=== PATIENT | female | born 1960 | race Caucasian/White ===

== ENCOUNTER 2018-06-28 11:14 | Inpatient (IN) ==
--- NOTE | 2018-06-28 21:03 | ED ---
HPI General Source: patient Mode of arrival: ambulatory Limitations: no limitations History of Present Illness HPI narrative: 57-year-old woman who does not seek regular medical care who presents with 3 day history of right lower chest pain and shortness of breath. She has been unwell for the past 4 weeks and has been seen twice at [facility] for abdominal pains and flank pains. First she was told she had pyelonephritis and finished a course of antibiotics and the second time she was told that she had diverticulitis and finished a course of Cipro and Flagyl. She still has some lingering abdominal discomfort however. Starting suddenly about 3 days ago she developed a constant stabbing right lower chest pain that does not radiate. It is not worse with urination but is worse with deep breath. She also feels short of breath both at rest and particularly with exertion. No fevers or chills. She does not have a cough and is not producing sputum. No hemoptysis. No unilateral leg pain or swelling. The patient denies IV drug use. No prior history of clots. No history of active malignancy or treatment for malignancy. She is not taking exogenous estrogen. Related Data Home Medications Medication Instructions Recorded Confirmed No Known Home Medications 06/28/18 06/28/18 Allergies Allergy/AdvReac Type Severity Reaction Status Date / Time No Known Allergies Allergy Unverified 06/28/18 11:27 Review of Systems ROS: all other systems reviewed are negative FOR[facility]LY [facility] Medical History Medical History Patient denies medical problems (Acute) Surgical History Surgical History No history of previous surgery (Acute) Social History Social History Substance History: No History of Abuse Second Hand Smoke Exposure: Yes Smoking Status: Heavy tobacco smoker Tobacco Type: Cigarettes How Often Do You Have a Drink Containing Alcohol: Never Exam Narrative Exam Narrative: GENERAL: Cachectic 57-year-old woman who appears older than stated age. No companions are present at bedside at time of exam. SKIN: Focused skin assessment warm/dry. 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 HEAD: Atraumatic. Normocephalic. EYES: Pupils equal and round. No scleral icterus. No injection or drainage. ENT: No nasal bleeding or discharge. Mucous membranes pink and moist. NECK: Trachea midline. No JVD. CARDIOVASCULAR: Regular rate and rhythm. No murmur appreciated. RESPIRATORY: No accessory muscle use but tachypnea present. Rales present in bilateral bases. Breath sounds equal bilaterally. GASTROINTESTINAL: Abdomen soft, very mild generalized tenderness to palpation, no rebound tenderness or guarding, nondistended. MUSCULOSKELETAL: No obvious deformities. No clubbing. No cyanosis. No edema. NEUROLOGICAL: Awake and alert. No obvious cranial nerve deficits. Motor grossly within normal limits. Normal speech. PSYCHIATRIC: Appropriate mood and affect; insight and judgment normal. Medical Decision Making MDM Narrative Medical decision making narrative: Ill-appearing 57-year-old woman with right- sided pleuritic chest pain and new oxygen requirement with tachypnea. Based on my exam I have a strong suspicion for IV drug use and I am somewhat concerned for endocarditis or vegetation on valve. This may be causing a pulmonary embolus. It appears that she has a right lower infiltrate on chest x-ray which may be community-acquired pneumonia or lung infarct secondary to pulmonary embolus or septic embolus to pulmonary artery. Will order d-dimer and if elevated CTA. Will cover empirically for community acquired pneumonia with ceftriaxone and azithromycin. Her presentation may be secondary to a occult malignancy given her chronically ill appearance. She is a likely admission. Provide with IV morphine 2 mg for pain. Addendum: CTA positive for bilateral pulmonary emboli. Patient started on heparin drip with bolus. Second dose of morphine IV ordered for pain. Medical Screen Exam Complete: Yes Emergency Medical Condition: Yes Medical Records Medical records reviewed: Yes I reviewed the patient's medical records. Lab Data Lab results reviewed: Yes I reviewed the patient's lab results. Lab results narrative: Elevated d-dimer, mildly elevated BNP that may be suggestive of right heart strain, negative troponin. Imaging Data Radiologist's impression: Bilateral pulmonary emboli observed on CT angios chest. Right lower lobe infiltrate suggestive of pneumonia seen on chest x- ray. The left costophrenic angle is not fully evaluated due to positioning of x -ray film. ECG Data Attestation: I personally reviewed and interpreted this ECG as follows: Interpretation: Sinus rhythm, rate 87 bpm, PA interval 174 ms, QRS interval 81 ms, QTc interval 14 ms, there is mild ST elevation in leads V3 and V4 with rounded ST segments and T-wave is suggestive of either acute ischemia or heart strain, disagree with the machine read of acute STEMI I do not believe this is a STEMI. Discharge Plan Discharge Disposition Patient Disposition: 30 Still Patient Discharge Condition Condition: Serious Discharge Details Diagnosis: Bilateral pulmonary embolism Physicians Team ED Provider: Devan Broussard Primary Care Provider: Primary Care Stacia Parks Attending Provider: Ye Machado Status ED Status: Admitted Patient
[2018-06-28] MEDS ORDERED: Morphine Sulfate Inj 2 MG/ML Vial IV.PUSH ONE (21:20)
--- NOTE | 2018-06-28 22:20 | US ---
EXAM DATE: 06/28/2018 10:11 PM EDT AGE/SEX: 57 years / Female INDICATIONS: Pulmonary embolism. CLINICAL DATA: This is the patient's initial encounter. Patient reports that signs and symptoms have been present for 4 - 6 days and indicates a pain score of 0/10. MEDICAL/SURGICAL HISTORY: None. None. COMPARISON: No prior exams available for comparison. TECHNIQUE: Venous ultrasound of both lower extremities was performed from the inguinal ligament to t he proximal calf. Real-time, color Doppler and spectral tracing, compression and augmentation techni ques were used. FINDINGS: Right Leg: There is normal flow within the right common femoral, superficial femoral, popliteal and peroneal veins. There is nonocclusive thrombus within the right posterior tibial vein. Left Leg: There is nonocclusive thrombus within the left proximal superficial femoral vein. Normal c olor flow is noted within the left mid and distal superficial femoral, popliteal, peroneal and marquetry worker ior tibial veins. Other: None. CONCLUSION: 1. Occlusive thrombus within the left proximal superficial femoral vein and right posterior tibial v ein. Electronically signed by: Javon Alaniz MD 06/28/2018 10:19 PM EDT
[2018-06-28 22:22] LABS: Hematocrit 36.8 % (35.0-46.0); Hemoglobin 12.5 gm/dL (11.6-15.3); Mean Corpuscular Hemoglobin 28.8 pg (27.0-34.0); Mean Corpuscular Volume 84.7 fL (80.0-100.0); Mean Platelet Volume 8.2 fL (7.0-11.0); Platelet Count 184 th/mm3 (150-450); Red Blood Count 4.34 mil/mm3 (4.00-5.30); White Blood Count 8.5 th/mm3 (4.0-11.0)
[2018-06-28 22:35] LABS: Activated Partial Thrombo Time 28.7 sec (24.3-30.1); INR 1.1 Ratio; Prothrombin Time 11.6 sec (9.8-11.6)
[2018-06-28] MEDS ORDERED: Heparin Drip 25,000 UNIT/250 ML BAG IV.CONT PRN ×2 (23:02→23:44)
--- NOTE | 2018-06-28 23:24 | P.HPIM ---
History of Present Illness [facility] Primary Care Physician: No Primary Care Physician Chief Complaint: Chest pain and shortness of breath History of Present Illness: Ms. Fontenot is a 57 year-old with a history of tobacco abuse since the age of 15 who presented to the emergency room in [place] complaining of chest pain and shortness of breath. She was found to have bilateral pulmonary embolism, emphysematous changes and apical lung robledo, and bilateral pleural effusions on pulmonary CTA and was transferred to the main hospital for hospitalist admission for medical management. The patient is seen in the surgical intensive care unit. She is complaining of severe stabbing pain in her chest and her back that has been relieved somewhat by pain medications. The pain is worsened with deep breathing and positional changes. The patient complains of a 10 pound weight loss over the past few weeks. The patient was previously seen at [facility] in [place] and was treated for pyelonephritis on her first ER visit followed by being treated for colitis. She states she was having pain in her back and abdomen that did not get better despite treatment with antibiotics resulting in her presentation to the [place] emergency room on 06/28/2018. She denies any recent long periods of travel, denies illicit drug abuse, denies any history of blood clots or bleeding disorders, denies any history of cancer, and denies taking any estrogen. She reports leading a relatively sedentary lifestyle and smokes about a pack a day since the age of 15. She denies any family history of blood clots or bleeding disorders. Inpatient Certification: I certify that the inpatient services were ordered in accordance with Medicare regulations governing the order. This includes certification that hospital inpatient services are reasonable and necessary and in the case of services not specified as inpatient-only under 42 CFR 419.22(n), that they are appropriately provided as inpatient services in accordance to with the 2-midnight benchmark under 43 CFR 412.3(e) Estimated Total Length of Stay (Days): 3 Plans for Post Hospital Care: Home Review of Systems All other systems reviewed negative except as stated in HPI PMFSH - History History Provided By: Patient - Medical History Medical History: Medical History (Last Updated 06/29/18 @ 00:36 by ELLEN Tao) History of ectopic Tobacco abuse Onset Date: ~1974 - Surgical History Surgical History: Surgical History (Last Updated 09/08/18 @ 00:37 by ELLEN Tao) History of bilateral salpingectomy - Family History Family History: Family History (Last Updated 06/29/18 @ 00:37 by ELLEN Tao) Mother Hypertension - Tobacco History Second Hand Smoke Exposure: Yes Smoking Status: Heavy tobacco smoker Tobacco Type: Cigarettes Packs Per Day: 1 Years Smoked: 42 - Alcohol History How Often Do You Have a Drink Containing Alcohol: Never - Substance Use History Substance History: No History of Abuse Medications and Allergies Active Medications: Active Medications Hydrocodone Bitart/Acetaminophen (Vassar 5/325) 1 tab PO Q4H PRN PRN Reason: pain > 4 Al Hydroxide/Mg Hydroxide (Milk Of [place]) 30 ml PO Q12H PRN PRN Reason: Mild Constipation Albuterol (Duoneb Neb (Prn)) 1 ampul NEB Q2HR NEB PRN PRN Reason: SHORTNESS OF BREATH/WHEEZING Albuterol (Duoneb Neb (Pia)) 1 ampul NEB Q6HR NEB PIA Last Admin: 06/28/18 22:30 Dose: 1 ampul Heparin Sodium/Dextrose (Heparin/D5w 25,000 U/250 Ml) 25,000 unit in 250 mls @ 8 mls/hr IV.CONT TITRATE PRN; Protocol PRN Reason: Per Protocol Morphine Sulfate (Morphine Inj) 2 mg IV.PUSH Q4H PRN PRN Reason: BREAKTHROUGH PAIN Allergies Allergy/AdvReac Type Severity Reaction Status Date / Time No Known Allergies Allergy Unverified 06/28/18 11:27 Home Medications Medication Instructions Recorded Confirmed Type No Known Home Medications 06/28/18 06/28/18 History Exam Vital signs: Vital Signs 06/28/18 21:25 06/28/18 22:31 06/28/18 22:58 Pulse Rate 85 Respiratory Rate 24 20 Pulse Oximetry 94 L Intake & Output 06/28/18 06/28/18 06/29/18 06:59 18:59 06:59 Weight 45.1 kg Other: Weight On Admission 45.1 kg Narrative: GENERAL: This is a frail older female patient, in no apparent distress. SKIN: No rashes. Cool and dry. HEAD: Atraumatic. Normocephalic. EYES: No scleral icterus. No injection or drainage. ENT: Nose without bleeding, purulent drainage. NECK: Trachea midline. No JVD. CARDIOVASCULAR: Regular rate and rhythm without murmurs, gallops, or rubs. RESPIRATORY: No tachypnea noted; no accessory muscle use. Breath sounds with coarse rhonchi bilaterally in lower lung robledo. GASTROINTESTINAL: Abdomen soft, non-tender, nondistended. No guarding. MUSCULOSKELETAL: Extremities without clubbing, cyanosis, or edema. No calf tenderness. NEUROLOGICAL: Awake and alert. Motor and sensory grossly within normal limits. Normal speech. . Results - Labs CBC & Chem 7: 06/28/18 21:57 Labs: Short CBC 06/28/18 Range/Units 21:57 WBC 8.5 (4.0-11.0) th/mm3 Hgb 12.5 (11.6-15.3) gm/dL Hct 36.8 (35.0-46.0) % Plt Count 184 (150-450) th/mm3 - Imaging Impressions Venous Doppler Study 06/28/18 00:00 CONCLUSION: 1. Occlusive thrombus within the left proximal superficial femoral vein and right posterior tibial vein. Caprini VTE Risk Assessment Caprini VTE Risk Assessment: Moderate/High Risk (score >= 2) Caprini Risk Assessment Model: Point Value = 1 Point Value = 2 Point Value = 3 Point Value = 5 Age 41-60 Minor surgery BMI > 25 kg/m2 Swollen legs Varicose veins or History of unexplained or recurrent spontaneous Oral contraceptives or hormone replacement Sepsis (< 1 month) Serious lung disease, including pneumonia (< 1 month) Abnormal pulmonary function Acute myocardial infarction Congestive heart failure (< 1 month) History of inflammatory bowel disease Medical patient at bed rest Age 61-74 Arthroscopic surgery Major open surgery (> 45 min) Laparoscopic surgery (> 45 min) Malignancy Confined to bed (> 72 hours) Immobilizing plaster cast Central venous access Age >= 75 History of VTE Family history of VTE Factor V Leiden Prothrombin [id number] Lupus anticoagulant Anticardiolipin antibodies Elevated serum homocysteine Heparin-induced thrombocytopenia Other congenital or acquired thrombophilia Stroke (< 1 month) Elective arthroplasty Hip, pelvis, or leg fracture Acute spinal cord injury (< 1 month) Prophylaxis Regimen: Total Risk Factor Score Risk Level Prophylaxis Regimen 0-1 Low Early ambulation 2 Moderate Order ONE of the following: *Sequential Compression Device (SCD) *Heparin 5000 units SQ BID 3-4 Higher Order ONE of the following medications: *Heparin 5000 units SQ TID *Enoxaparin/Lovenox 40 mg SQ daily (WT < 150 kg, CrCl > 30 mL/min) *Enoxaparin/Lovenox 30 mg SQ daily (WT < 150 kg, CrCl > 10-29 mL/min) *Enoxaparin/Lovenox 30 mg SQ BID (WT < 150 kg, CrCl > 30 mL/min) AND/OR *Sequential Compression Device (SCD) 5 or more Highest Order ONE of the following medications: *Heparin 5000 units SQ TID (Preferred with Epidurals) *Enoxaparin/Lovenox 40 mg SQ daily (WT < 150 kg, CrCl > 30 mL/min) *Enoxaparin/Lovenox 30 mg SQ daily (WT < 150 kg, CrCl > 10-29 mL/min) *Enoxaparin/Lovenox 30 mg SQ BID (WT < 150 kg, CrCl > 30 mL/min) AND *Sequential Compression Device (SCD) Assessment and Plan - Plan Ms. Fontenot is a 57 year-old with a history of tobacco abuse since the age of 15 who presented to the emergency room in [place] complaining of chest pain and shortness of breath. She was found to have bilateral pulmonary embolism, emphysematous changes and apical lung robledo, and bilateral pleural effusions on pulmonary CTA and was transferred to the main hospital for hospitalist admission for medical management. Bilateral pulmonary emboli Bilateral lower extremity DVTs -Heparin drip -Analgesia: As needed [place]assar and IV morphine for breakthrough pain -Mildly elevated BNP of 309 with no other indicators of right ventricular strain on EKG or troponin I leak -Urgent echocardiogram in a.m. to evaluate for right ventricular strain -Consult hematology - appreciate assistance with coagulopathy Emphysematous changes in long-term smoker -Consult pulmonology -appreciate assistance with emphysematous changes, interstitial changes right lung base, and small bilateral pleural effusions in background of bilateral pulmonary embolism -Duonebulizers q6h and q2h PRN sob/wheezing -Supplemental oxygen via nasal cannula to maintain oxygen saturation greater than 92% Tobacco Abuse - encouraged cessation Discussed Condition With: Dr. Pond, patient, and RN .
[2018-06-28] MEDS ORDERED: Heparin 10,000 UNITS/10 ML Vial (for IV use) ONE (23:32)
[2018-06-28] MEDS ORDERED: Heparin 10,000 UNITS/10 ML Vial (for IV use) IV.PUSH SCH (23:45)
[2018-06-29] MEDS: Morphine Sulfate Inj 2 MG/ML Vial IV.PUSH PRN ×2 (03:42→08:19)
[2018-06-29 08:07] LABS: Baso % (Auto) 0.4 % (0.0-2.0); Eos # (Auto) 0.2 th/mm3 (0.0-0.4); Eos % (Auto) 2.2 % (0.0-4.0); Hematocrit 34.8 % (35.0-46.0); Hemoglobin 11.8 gm/dL (11.6-15.3); Lymph # (Auto) 0.9 th/mm3 (1.0-4.8); Lymph % (Auto) 10.9 % (9.0-44.0); Mean Corpuscular Hemoglobin 28.7 pg (27.0-34.0); Mean Corpuscular Volume 84.4 fL (80.0-100.0); Mean Platelet Volume 8.2 fL (7.0-11.0); Mono # (Auto) 0.5 th/mm3 (0.0-0.9); Mono % (Auto) 6.1 % (0.0-8.0); Neut # (Auto) 6.4 th/mm3 (1.8-7.7); Neut % (Auto) 80.4 % (16.0-70.0); Platelet Count 177 th/mm3 (150-450); Red Blood Count 4.12 mil/mm3 (4.00-5.30); White Blood Count 7.9 th/mm3 (4.0-11.0)
[2018-06-29 08:26] LABS: Alanine Aminotransferase 10 U/L (10-53); Albumin 2.7 g/dL (3.4-5.0); Anion Gap 10 meq/L (5-15); Aspartate Aminotransferase 16 U/L (15-37); Blood Urea Nitrogen 6 mg/dL (7-18); Calcium 8.3 mg/dL (8.5-10.1); Carbon Dioxide 25.3 meq/L (21.0-32.0); Chloride 102 meq/L (98-107); Glomerular Filtration Rate Greater Than 89 mL/min (>89); Glucose,Random 133 mg/dL (74-106); Potassium 3.2 meq/L (3.5-5.1); Sodium 137 meq/L (136-145)
[2018-06-29 08:29] LABS: Alkaline Phosphatase 59 U/L (45-117); Total Protein 7.6 g/dL (6.4-8.2)
--- NOTE | 2018-06-29 10:01 | P.PN ---
Subjective Interval history: Nursing denies any deterioration since last night. Patient herself says her pain is no better. Also says that she has had persistent back pain since being discharged from her last hospitalization for pyelonephritis and colitis. Patient denies any fevers. She denies having any history of blood clots or cancer or any family history of such. Patient states she is an active smoker and says that at home she lives a very sedentary lifestyle just sitting around or laying around for multiple hours during any given day. Physical Exam Vital signs: Vital Signs 06/28/18 20:00 06/28/18 21:25 06/28/18 22:31 Temperature 98.1 F Pulse Rate 82 85 Respiratory Rate 20 24 Blood Pressure 125/77 Pulse Oximetry 100 94 L 06/28/18 22:58 06/29/18 00:00 06/29/18 04:00 Temperature 98.3 F 98.2 F Pulse Rate 90 66 Respiratory Rate 20 24 24 Blood Pressure 114/68 108/59 L Pulse Oximetry 96 06/29/18 04:35 06/29/18 08:00 06/29/18 08:31 Temperature 97.9 F Pulse Rate 67 78 Respiratory Rate 20 26 H 26 H Blood Pressure 128/82 Pulse Oximetry 06/29/18 09:43 Temperature Pulse Rate Respiratory Rate 20 Blood Pressure Pulse Oximetry Intake & Output 06/28/18 06/29/18 06/29/18 18:59 06:59 18:59 Weight 45.1 kg Other: # Voids 1 Date of Last Bowel Movement 06/29/18 # Bowel Movements 1 Weight On Admission 45.1 kg Narrative: Heart sounds regular rate and rhythm, Clear lungs bilaterally, unlabored breathing No lower extremity edema, no sarah tenderness to palpation over bilateral calves Has diffuse lumbar TTP Results - Labs CBC & Chem 7: 06/29/18 07:45 06/29/18 07:45 Laboratory Results - last 24 hr 06/28/18 06/28/18 06/28/18 20:45 21:57 21:57 WBC 8.5 RBC 4.34 Hgb 12.5 Hct 36.8 MCV 84.7 MCH 28.8 MCHC 34.0 RDW 14.0 Plt Count 184 MPV 8.2 Neut % (Auto) Lymph % (Auto) [place] % (Auto) Eos % (Auto) Baso % (Auto) Neut # (Auto) Lymph # (Auto) [place] # (Auto) Eos # (Auto) Baso # (Auto) WBC Differential Differential Comment PT 11.6 INR 1.1 APTT 28.7 Sodium Potassium Chloride Carbon Dioxide Anion Gap BUN Creatinine Estimated GFR Random Glucose Calcium Total Bilirubin AST ALT Alkaline Phosphatase Total Protein Albumin Nasal Screen MRSA (PCR) Mrsa detected 06/29/18 06/29/18 06/29/18 07:45 07:45 07:45 WBC 7.9 RBC 4.12 Hgb 11.8 Hct 34.8 L MCV 84.4 MCH 28.7 MCHC 34.0 RDW 14.0 Plt Count 177 MPV 8.2 Neut % (Auto) 80.4 H Lymph % (Auto) 10.9 [place] % (Auto) 6.1 Eos % (Auto) 2.2 Baso % (Auto) 0.4 Neut # (Auto) 6.4 Lymph # (Auto) 0.9 L [place] # (Auto) 0.5 Eos # (Auto) 0.2 Baso # (Auto) 0.0 WBC Differential . Differential Comment Auto diff final PT INR APTT 32.6 H Sodium 137 Potassium 3.2 L Chloride 102 Carbon Dioxide 25.3 Anion Gap 10 BUN 6 L Creatinine 0.64 Estimated GFR Greater than 89 Random Glucose 133 H Calcium 8.3 L Total Bilirubin 0.3 AST 16 ALT 10 Alkaline Phosphatase 59 Total Protein 7.6 Albumin 2.7 L Nasal Screen MRSA (PCR) Microbiology 06/29/18 02:00 Stool Stool Occult Blood (ITALO) - Final Hemoccult negative - Imaging Impressions Venous Doppler Study 06/28/18 00:00 CONCLUSION: 1. Occlusive thrombus within the left proximal superficial femoral vein and right posterior tibial vein. Assessment and Plan - Plan Ms. Fontenot is a 57 year-old with a history of tobacco abuse since the age of 15 who presented to the emergency room in [place] complaining of chest pain and shortness of breath. She was found to have bilateral pulmonary embolism, emphysematous changes and apical lung robledo, and bilateral pleural effusions on pulmonary CTA and was transferred to the main hospital for hospitalist admission for medical management. Chest pain Bilateral pulmonary emboli -Heparin drip -Analgesia: As needed [facility] and IV morphine for breakthrough pain -Mildly elevated BNP of 309 with no other indicators of right ventricular strain on EKG or troponin I leak -Echocardiogram results indicate right heart moderately decreased systolic function, discussed results w/ cardiology, does not indicate criteria for submassive PE thrombolysis; discuss CT results with Dr. Yee, recommended repeat CTA either this evening or tomorrow morning and continue medical management as long as the patient is hemodynamically stable -awaiting hematology consult BL DVTs - heparin as above, awaiting hematology consult Emphysematous changes in long-term smoker -start ICS and albuterol as needed -Duonebs Back pain -Possible "Lytic lesion at T12" read per radiology, will see if hematology/ oncology can comment on this, will start nasal calcitonin (per pharmacy will not be available until Sunday), UA w/ reflex, start lidoderm patch -Micro from [place] grew out no pathologic specimens, Jun 03 G+ cocci, rods, - contamination w/ no further workup Tobacco Abuse - encouraged cessation
[2018-06-29] MEDS: Lidocaine 5% Patch T-DERMAL SCH (10:58)
[2018-06-29] MEDS ORDERED: Calcitonin Salmon Nasal 200 UNITS/Actuation - (3.7 ML) NASAL SCH (12:00)
--- NOTE | 2018-06-29 12:46 | ECHRPT ---
Indication: Shortness of Breath, Endocarditis CONCLUSIONS The left ventricular systolic function is mildly reduced with an estimated ejection fraction in the range of 45- 50%. Wall thickness is normal. Normal left ventricular size. The right ventricular systoilc function is moderately decreased. There is mild to moderate tricuspid valve regurgitation. The estimated pulmonary arterial pressure is 49.7 mmHg. There is a small pericardial effusion present. IVC is normal size. BP: / HR: Rhythm: Sinus MEASUREMENTS (Male / Female) Normal Values Technical Quality:Fair 2D ECHO LV Diastolic Diameter PLAX 3.6 cm 4.2 - 5.9 / 3.9 - 5.3 cm LV Systolic Diameter PLAX 2.9 cm IVS Diastolic Thickness 0.7 cm 0.6 - 1.0 / 0.6 - 0.9 cm LVPW Diastolic Thickness 0.7 cm 0.6 - 1.0 / 0.6 - 0.9 cm LV Relative Wall Thickness 0.4 RV Internal Dim ED PLAX 2.4 cm LVOT Diameter 1.9 cm LA Systolic Diameter LX 2.6 cm 3.0 - 4.0 / 2.7 - 3.8 cm M-MODE Aortic Root Diameter MM 2.8 cm LA Systolic Diameter MM 2.7 cm LA Ao Ratio MM 1.0 AV Cusp Separation MM 2.1 cm DOPPLER AV Peak Velocity 129.0 cm/s AV Peak Gradient 6.7 mmHg LVOT Peak Velocity 98.7 cm/s LVOT Peak Gradient 3.9 mmHg AV Area Cont Eq pk 2.2 cm MV Area PHT 2.5 cm Mitral E Point Velocity 72.6 cm/s Mitral A Point Velocity 75.0 cm/s Mitral E to A Ratio 1.0 TR Peak Velocity 315.0 cm/s TR Peak Gradient 39.7 mmHg Right Atrial Pressure 10.0 mmHg Pulmonary Artery Systolic Pressu 49.7 mmHg Right Ventricular Systolic Press 49.7 mmHg FINDINGS LEFT VENTRICLE The left ventricular systolic function is mildly reduced with an estimated ejection fraction in the range of 45- 50%. Wall thickness is normal. Normal left ventricular size. RIGHT VENTRICLE The right ventricular systoilc function is moderately decreased. LEFT ATRIUM The left atrial size is normal. RIGHT ATRIUM The right atrial size is normal. ATRIAL SEPTUM Normal atrial septal thickness without atrial level shunting by limited color doppler interrogation. AORTA The aortic root and proximal ascending aorta are normal in size on limited imaging. MITRAL VALVE Mitral annular calcification is present. Trace mitral valve regurgitation. AORTIC VALVE Trileaflet aortic valve. No aortic valve stenosis or regurgitation. TRICUSPID VALVE Structurally normal tricuspid valve. There is mild to moderate tricuspid valve regurgitation. The estimated pulmonary arterial pressure is 49.7 mmHg. PULMONARY VALVE No pulmonary valve regurgitation or stenosis. VESSELS The inferior vena cava is normal in size. PERICARDIUM There is a small pericardial effusion present. Kacy Jones MD (Electronically Signed) Final Date:29 June 2018 12:45
[2018-06-29 13:14] LABS: Bacteria,Urine Occasional /hpf; Bilirubin,Urine Negative (Negative); Clarity,Urine Hazy (Clear); Color,Urine Yellow (Yellw/Straw); Glucose,Urine (UA) 50 mg/dL (Negative); Leukocyte Esterase,Urine Large (Negative); Mucus,Urine Few /lpf (Occasional); Nitrite,Urine Negative (Negative); Renal Epithelial Cells,Urine <1 /hpf; Specific Gravity,Urine 1.006 (1.002-1.035); Squamous Epithelial Cell,Urine 5 /hpf (0-5); Transitional Epi Cells,Urine 1 /hpf
[2018-06-29] MEDS: Heparin Drip 25,000 UNIT/250 ML BAG IV.CONT PRN (16:33)
--- NOTE | 2018-06-29 20:23 | P.CON ---
History of Present Illness Service: Hematology Consult date: 06/29/18 Reason for Consult: B/L PE--hyepercoagulable state Primary Care Provider: No Primary Care Physician Chief Complaint: Chest pain and shortness of breath History of Present Illness: This is a 57-year-old female who has a history of tobacco abuse for more than 30 pack years. She presented to the emergency room with chest pain and shortness of breath. She underwent a CT angiogram of the was found to have bilateral pulmonary emboli. There was a possible lytic lesion at the T12 vertebral body. A Doppler ultrasound of lower extremities revealed occlusive thrombus within the left proximal superficial femoral vein and right posterior tibial vein. Patient was started on heparin gtt. she endorses approximately 10 pound weight loss over the past 2 weeks. She appears quite cachectic and thin. The patient denies having any recent prolonged car or air travel. She denies any having any recent trauma. She has not had any prolonged hospitalization. She does not have any history of autoimmune disorders. She does not use exogenous estrogen. Oncology has been consulted to make further recommendations in this patient seems to have an unprovoked pulmonary embol and DVT. Review of Systems All other systems reviewed negative except as stated in HPI PMFSH - History History Provided By: Patient - Medical History Medical History: Medical History (Last Reviewed 06/29/18 @ 20:22 by Roger Polanco MD) History of ectopic Tobacco abuse Onset Date: ~1974 - Surgical History Surgical History: Surgical History (Last Reviewed 06/29/18 @ 20:22 by Roger Polanco MD) History of bilateral salpingectomy - Family History Family History: Family History (Last Reviewed 06/29/18 @ 20:22 by Roger Polanco MD) Mother Hypertension - Tobacco History Second Hand Smoke Exposure: Yes Tobacco Use In Past 30 Days: Yes Smoking Status: Heavy tobacco smoker Tobacco Type: Cigarettes Packs Per Day: 1 Years Smoked: 42 - Alcohol History How Often Do You Have a Drink Containing Alcohol: Never - Substance Use History Substance History: No History of Abuse Medications and Allergies Active Medications: Active Medications Hydrocodone Bitart/Acetaminophen ([place] 5/325) 1 tab PO Q4H PRN PRN Reason: pain > 4 Last Admin: 06/29/18 16:32 Dose: 1 tab Al Hydroxide/Mg Hydroxide (Milk Of Magnesia Liq) 30 ml PO Q12H PRN PRN Reason: Mild Constipation Albuterol (Duoneb Neb (Prn)) 1 ampul NEB Q2HR NEB PRN PRN Reason: SHORTNESS OF BREATH/WHEEZING Albuterol (Duoneb Neb (Pia)) 1 ampul NEB Q6HR NEB PIA Last Admin: 06/29/18 15:50 Dose: Not Given Budesonide/Formoterol Fumarate (Symbicort 80/4.5 Mcg Inh) 2 puff INH BID PIA Calcitonin Galien (Calcitonin Galien Nasal) 1 sprays NASAL DAILY PIA Heparin Sodium/Dextrose (Heparin/D5w 25,000 U/250 Ml) 25,000 unit in 250 mls @ 0 mls/hr IV.CONT TITRATE PRN; Protocol PRN Reason: Per Protocol Last Admin: 06/29/18 16:33 Dose: 1,200 units/hr, 12 mls/hr Ceftriaxone Sodium 1,000 mg/ (Sodium Chloride) 100 mls @ 200 mls/hr IV.SIG Q24H PIA Last Infusion: 06/29/18 15:52 Dose: Infused Lidocaine HCl (Lidoderm 5% Patch.12 Hr) 1 patch T-DERMAL DAILY PIA Last Admin: 06/29/18 10:58 Dose: 1 patch Patch Removal (Remove Old Patch) 1 each T-DERMAL HS PIA Allergies Allergy/AdvReac Type Severity Reaction Status Date / Time No Known Allergies Allergy Unverified 06/28/18 11:27 Home Medications Medication Instructions Recorded Confirmed Type No Known Home Medications 06/28/18 06/28/18 History Physical Exam Vital signs: Vital Signs 06/28/18 21:25 06/28/18 22:31 06/28/18 22:58 Temperature Pulse Rate 85 Respiratory Rate 24 20 Blood Pressure Pulse Oximetry 94 L 06/29/18 00:00 06/29/18 04:00 06/29/18 04:35 Temperature 98.3 F 98.2 F Pulse Rate 90 66 67 Respiratory Rate 24 24 20 Blood Pressure 114/68 108/59 L Pulse Oximetry 96 06/29/18 08:00 06/29/18 08:31 06/29/18 09:43 Temperature 97.9 F Pulse Rate 78 Respiratory Rate 26 H 26 H 20 Blood Pressure 128/82 Pulse Oximetry 06/29/18 10:39 06/29/18 12:00 06/29/18 16:00 Temperature 97.8 F 98.3 F Pulse Rate 76 73 Respiratory Rate 24 28 H Blood Pressure 133/70 Pulse Oximetry 95 Intake & Output 06/29/18 06/29/18 06/30/18 06:59 18:59 06:59 Intake Total 850 / 850 Balance 850 / 850 Weight 45.1 kg Intake: IV 100 / 100 Rocephin Inj 1,000 MG In NS Inj 100 / 100 100 ML @ 200 mls/hr IV.SIG Q24H PIA Rx#:[id number] Oral 750 / 750 Other: # Voids 1 8 Date of Last Bowel Movement 06/29/18 # Bowel Movements 1 Weight On Admission 45.1 kg - Constitutional no acute distress, thin, cachectic - Routine HEENT Exam Head: Present: normocephalic Eye: Present: EOMI, PERRL ENT: Present: mucous membranes moist - Routine Neck Exam Present: supple, full ROM - Routine Respiratory Exam Present: CTA bilaterally - Routine Cardiovascular Exam Present: RRR, S1, S2 - Routine Abdominal Exam Present: soft, normoactive bowel sounds - Routine Extremities Exam Present: full ROM - Routine Skin Exam Present: intact - Routine Neurological Exam Present: alert, oriented X3, CN II-XII intact Assessment and Plan - Assessment (1) Cachexia Code(s): R64 - Cachexia Status: Acute (2) Tobacco abuse Code(s): Z72.0 - Tobacco use Status: Acute (3) Weight loss Code(s): R63.4 - Abnormal weight loss Status: Acute (4) DVT (deep venous thrombosis) Code(s): I82.409 - Acute embolism and thrombosis of unspecified deep veins of unspecified lower extremity Status: Acute (5) Bilateral pulmonary embolism Code(s): I26.99 - Other pulmonary embolism without acute cor pulmonale Status : Acute - Plan A/P: This is a 57-year-old female who presents with 10 pound weight loss, shortness of breath and chest pain and was found to have lower extremity DVT and pulmonary embolism and bilateral lungs: #1 Bilateral PE and lower extremity DVT: This appears to have occurred in unprovoked situation. The patient denies having any family history of DVTs or pulmonary embolism. She has not had any prolonged air or car travel. She has not had any trauma. No history of autoimmune disorders. Given her history of tobacco abuse and recent unintentional weight loss, underlying malignancy should be suspected. There is a questionable T12 vertebral body lytic lesion. I would recommend obtaining a bone scan. I would also recommend obtaining a CT of the abdomen and pelvis. We may consider biopsying the T12 vertebral body lesion. I will obtain hypercoagulable workup . We can reliably check for prothrombin mutation, factor V Leiden, antiphospholipid antibodies and MARC screening. The remaining hypercoagulable workup including protein C and protein S, activated protein C and Antithrombin III levels cannot be checked while the patient has acute thrombi and is on heparin. This patient will need indefinite anticoagulation. The patient states that she does not have insurance. In this situation it would be very difficult to start Eliquis. I would recommend starting Coumadin with either heparin or Lovenox bridging. Continue anticoagulation with with heparin or Lovenox until INR is greater than 2 for at least 48 hours.
[2018-06-29] MEDS: Morphine Inj 4 MG/ML Vial IV.PUSH PRN (20:45)
[2018-06-29] MEDS: Budesonide-Formoterol 80/4.5 MCG 6.9 GM Inhaler INH SCH (20:53)
[2018-06-29] MEDS ORDERED: Morphine Sulfate Inj 2 MG/ML Vial IV.PUSH PRN (21:51)
[2018-06-30 05:24] LABS: Hematocrit 33.7 % (35.0-46.0); Hemoglobin 11.3 gm/dL (11.6-15.3); Mean Corpuscular HGB Conc 33.7 % (32.0-36.0); Mean Corpuscular Hemoglobin 28.7 pg (27.0-34.0); Mean Corpuscular Volume 85.1 fL (80.0-100.0); Mean Platelet Volume 8.4 fL (7.0-11.0); Platelet Count 223 th/mm3 (150-450); Red Blood Count 3.96 mil/mm3 (4.00-5.30); Red Cell Distribution Width 13.9 % (11.6-17.2); White Blood Count 6.8 th/mm3 (4.0-11.0)
[2018-06-30 05:48] LABS: Anion Gap 9 meq/L (5-15); Blood Urea Nitrogen 5 mg/dL (7-18); Carbon Dioxide 26.7 meq/L (21.0-32.0); Chloride 105 meq/L (98-107); Glomerular Filtration Rate Greater Than 89 mL/min (>89); Glucose,Random 129 mg/dL (74-106); Potassium 3.4 meq/L (3.5-5.1); Sodium 141 meq/L (136-145)
[2018-06-30] MEDS: Morphine Inj 4 MG/ML Vial IV.PUSH PRN ×3 (06:17→23:06)
[2018-06-30] MEDS: Lidocaine 5% Patch T-DERMAL SCH (08:57)
--- NOTE | 2018-06-30 09:02 | CT ---
EXAM DATE: 06/30/2018 8:52 AM EDT AGE/SEX: 57 years / Female INDICATIONS: Diffuse abdomen pain today. CLINICAL DATA: This is the patient's initial encounter. Patient reports that signs and symptoms have been present for 1 day and indicates a pain score of 2/10. MEDICAL/SURGICAL HISTORY: . ectopic . salpingectomy ORAL CONTRAST: No oral contrast ingested. RADIATION DOSE: 7.61 CTDI (mGy) COMPARISON: C, CTA PULMONARY W CONTRAST W 3D, 06/30/2018. DL, CTA PULMONARY W CONTRAST W 3D, 06/28/2018. . TECHNIQUE: Multiple contiguous axial images were obtained through the abdomen and pelvis following b olus infusion of 85 ml Omnipaque 350 (iohexol) nonionic water-soluble contrast as a cumulative dose for multiple exams. No oral contrast ingested. Using automated exposure control and adjustment of t he mA and/or kV according to patient size, radiation dose was kept as low as reasonably achievable to obtain optimal diagnostic quality images. DICOM format image data is available electronically for r eview and comparison. FINDINGS: Lower Lungs: There is a small to moderate-sized right-sided pleural effusion and airspace consolidati on involving the right lower lobe. There is a 1.3 cm nodular opacity identified within the peripheral aspect of the left lower lobe on image 6 of series 3 of 6. The heart size appears normal with a smal l pericardial effusion present. Liver: The liver demonstrates normal morphology and attenuation with scattered small hypodensities co mpatible with simple cysts. Spleen: Homogeneous density without enlargement. Pancreas: The pancreas demonstrates scattered calcifications. No evidence of mass or abnormal dilati on of the pancreatic duct. Kidneys: Normal in size and shape. No evidence of concerning mass or hydronephrosis. Small well-circ umscribed cortical hypoattenuating lesions consistent with small cysts. Adrenal Glands: Unremarkable. Aorta: Scattered atherosclerosis. No evidence of aneurysm. Bowel/Mesentery: There is moderate formed stool identified throughout the colon. Small bowel is unre markable. Abdominal Wall: Intact. Retroperitoneum: No evidence of adenopathy in the retrocrural, para-aortic, or deep pelvic regions. Bladder: Contours are smooth. Reproductive Organs: No abnormal masses or calcifications seen. Inguinal: The inguinal region is unremarkable without evidence of adenopathy. Bony Structures: Osteopenia and degenerative changes. CONCLUSION: 1. Right lower lobe airspace consolidation and 1.3 cm opacity involving the left lower lobe. There i s a small to moderate-sized right-sided pleural effusion slightly increased from the prior exam. The left pleural effusion has resolved. Prior PE study demonstrated a large clot burden in these areas of airspace consolidation may reflect pulmonary infarct. 2. The solid organs demonstrate no evidence of infarct. There is a large stool burden present.. Electronically signed by: Denise Yee MD 06/30/2018 9:00 AM EDT
[2018-06-30] MEDS: Budesonide-Formoterol 80/4.5 MCG 6.9 GM Inhaler INH SCH ×2 (09:07→21:28)
--- NOTE | 2018-06-30 09:15 | CT ---
EXAM DATE: 06/30/2018 8:50 AM EDT AGE/SEX: 57 years / Female INDICATIONS: Shortness of breath, history of pulmonary embolism. CLINICAL DATA: This is the patient's initial encounter. Patient reports that signs and symptoms have been present for 1 day and indicates a pain score of 0/10. MEDICAL/SURGICAL HISTORY: . ectopic . salpingectomy RADIATION DOSE: 4.76 CTDI (mGy) COMPARISON: [facility], CTA PULMONARY W CONTRAST W 3D, 06/28/2018. [facility], CHEST 1V SINGLE AP, 06/28/2018. . TECHNIQUE: Volumetric scanning was performed using a multi-row detector CT scanner during bolus infu rena of 85 ml Omnipaque 350 (iohexol) nonionic water-soluble contrast as a cumulative dose for multi ple exams. The data was post processed with a variety of visualization algorithms including full volu me maximum intensity projection and sliding thin slab reformation. Using automated exposure control a nd adjustment of the mA and/or kV according to patient size, radiation dose was kept as low as reason ably achievable to obtain optimal diagnostic quality images. DICOM format image data is available el ectronically for review and comparison. FINDINGS: Pulmonary Arteries: There are multiple emboli identified within the pulmonary vessels which appear s table to minimally decreased and size from the prior exam. Lung: There is diffuse interstitial thickening and consolidation involving the right lower lobe and there is a persistent 1.3 cm airspace opacity involving the peripheral aspect of the left lower lobe. The background lung parenchyma demonstrates severe centrilobular emphysema. Effusion: . There is a small to moderate-sized right-sided pleural effusion which is slightly increa sed in size from the prior exam. The left-sided pleural effusion has resolved Mediastinum: No evidence of mediastinal or hilar adenopathy. Other: The axilla is unremarkable. CONCLUSION: 1. There is a large clot burden identified with multiple areas of pulmonary emboli. The size of thes e emboli appear stable to slightly decreased in size as compared to the prior exam. There is a worsen ing right-sided pleural effusion with stable interstitial thickening and airspace consolidation withi n the right lower lobe. 2. The left-sided pleural effusion has resolved and there is a persistent irregular 1.3 cm opacity i dentified within the peripheral aspect of the left lower lobe which may represent an area of pulmonar y infarct. Electronically signed by: Denise Yee MD 06/30/2018 9:14 AM EDT
--- NOTE | 2018-06-30 10:32 | P.PN ---
Subjective Interval history: As any deterioration since last night except for when she related that the night nurse had to seek authorization from the nocturnal is to restart the patient's IV morphine which I had discontinued for her low back pain. Patient reports that the Lidoderm patch that started yesterday did not help at all. Physical Exam Vital signs: Vital Signs 06/29/18 10:39 06/29/18 12:00 06/29/18 16:00 Temperature 97.8 F 98.3 F Pulse Rate 76 73 Respiratory Rate 24 28 H Blood Pressure 133/70 Pulse Oximetry 95 06/29/18 20:00 06/29/18 21:08 06/30/18 00:00 Temperature 98.3 F 98.2 F Pulse Rate 78 81 87 Respiratory Rate 25 H 16 25 H Blood Pressure 123/74 120/57 L Pulse Oximetry 96 96 95 06/30/18 01:56 06/30/18 03:29 06/30/18 04:00 Temperature 98.0 F Pulse Rate 77 76 Respiratory Rate 24 16 26 H Blood Pressure 115/74 Pulse Oximetry 93 L 06/30/18 08:00 Temperature 98.2 F Pulse Rate 83 Respiratory Rate 27 H Blood Pressure 130/72 Pulse Oximetry 93 L Intake & Output 06/29/18 06/30/18 06/30/18 18:59 06:59 18:59 Intake Total 850 / 850 750 / 750 Balance 850 / 850 750 / 750 Weight 46.3 kg Intake: IV 100 / 100 Rocephin Inj 1,000 MG In NS Inj 100 / 100 100 ML @ 200 mls/hr IV.SIG Q24H ARINA Rx#:[id number] Oral 750 / 750 750 / 750 Other: # Voids 8 8 Date of Last Bowel Movement 06/29/18 06/29/18 # Bowel Movements 1 Narrative: Patient has diffuse mild to moderate lumbar tenderness to palpation Unlabored breathing No conversive dyspnea Seems to be in acute distress when she tries to sit herself up for examination otherwise lies comfortably Results - Labs CBC & Chem 7: 06/30/18 03:43 06/30/18 03:43 Laboratory Results - last 24 hr 06/29/18 06/29/18 06/29/18 11:20 14:42 15:43 WBC RBC Hgb Hct MCV MCH MCHC RDW Plt Count MPV APTT 24.9 D Sodium Potassium Chloride Carbon Dioxide Anion Gap BUN Creatinine Estimated GFR Random Glucose Calcium Troponin I Less than 0.02 L Urine Color Yellow Urine Clarity Hazy H Urine pH 6.0 Ur Specific [place] 1.006 Urine Protein Negative Urine Glucose (UA) 50 Urine Ketones Negative Urine Occult Blood Small H Urine Nitrate Negative Urine Bilirubin Negative Urine Urobilinogen Less than 2 Ur Leukocyte Esterase Large H Urine RBC 3 Urine WBC 57 H Ur Squamous Epith Cells 5 Ur Transition Epith Cell 1 Ur Renal Epithelial Cell <1 Urine Bacteria Occasional H Urine Mucus Few H Micro UA Comment Culture indicated Ur Microscopic Review Not Reportable Urine Culture Comments Culture indicated 06/29/18 06/30/18 06/30/18 20:47 03:43 03:43 WBC 6.8 RBC 3.96 L Hgb 11.3 L Hct 33.7 L MCV 85.1 MCH 28.7 MCHC 33.7 RDW 13.9 Plt Count 223 MPV 8.4 APTT 40.6 H D Sodium 141 Potassium 3.4 L Chloride 105 Carbon Dioxide 26.7 Anion Gap 9 BUN 5 L Creatinine 0.65 Estimated GFR Greater than 89 Random Glucose 129 H Calcium 8.0 L Troponin I Urine Color Urine Clarity Urine pH Ur Specific [place] Urine Protein Urine Glucose (UA) Urine Ketones Urine Occult Blood Urine Nitrate Urine Bilirubin Urine Urobilinogen Ur Leukocyte Esterase Urine RBC Urine WBC Ur Squamous Epith Cells Ur Transition Epith Cell Ur Renal Epithelial Cell Urine Bacteria Urine Mucus Micro UA Comment Ur Microscopic Review Urine Culture Comments 06/30/18 03:43 WBC RBC Hgb Hct MCV MCH MCHC RDW Plt Count MPV APTT 41.5 H Sodium Potassium Chloride Carbon Dioxide Anion Gap BUN Creatinine Estimated GFR Random Glucose Calcium Troponin I Urine Color Urine Clarity Urine pH Ur Specific [place] Urine Protein Urine Glucose (UA) Urine Ketones Urine Occult Blood Urine Nitrate Urine Bilirubin Urine Urobilinogen Ur Leukocyte Esterase Urine RBC Urine WBC Ur Squamous Epith Cells Ur Transition Epith Cell Ur Renal Epithelial Cell Urine Bacteria Urine Mucus Micro UA Comment Ur Microscopic Review Urine Culture Comments - Imaging Impressions Abdomen/Pelvis CT 06/30/18 00:00 CONCLUSION: 1. Right lower lobe airspace consolidation and 1.3 cm opacity involving the left lower lobe. There is a small to moderate-sized right-sided pleural effusion slightly increased from the prior exam. The left pleural effusion has resolved. Prior PE study demonstrated a large clot burden in these areas of airspace consolidation may reflect pulmonary infarct. 2. The solid organs demonstrate no evidence of infarct. There is a large stool burden present.. Chest CTA 06/30/18 00:00 CONCLUSION: 1. There is a large clot burden identified with multiple areas of pulmonary emboli. The size of these emboli appear stable to slightly decreased in size as compared to the prior exam. There is a worsening right-sided pleural effusion with stable interstitial thickening and airspace consolidation within the right lower lobe. 2. The left-sided pleural effusion has resolved and there is a persistent irregular 1.3 cm opacity identified within the peripheral aspect of the left lower lobe which may represent an area of pulmonary infarct. Assessment and Plan - Plan Ms. Fontenot is a 57 year-old with a history of tobacco abuse since the age of 15 who presented to the emergency room in [place] complaining of chest pain and shortness of breath. She was found to have bilateral pulmonary embolism, emphysematous changes and apical lung [place], and bilateral pleural effusions on pulmonary CTA and was transferred to the main hospital for hospitalist admission for medical management. Chest pain Bilateral pulmonary emboli -Heparin drip, bridging with warfarin now per hematology's recommendations -[place] and IV morphine as needed for breakthrough pain -Repeat CTA shows slightly decreased size of clots, decreasing left-sided pleural effusion, right-sided pleural effusion persistent - Nodular opacity of left lower lobe - possible pulmonary infarct per radiology, repeat CT scan in 3 months BL DVTs -Appreciate hematology input, hypercoagulable workup has been started by hematology, starting Coumadin while covering with heparin Emphysematous changes in long-term smoker -ICS and albuterol as needed -Duonebs Back pain -likely multifactorial with possible cause being a T12 lesion as well as possible urinary tract infection being superimposed with substantial constipation -Lytic lesion noted possibly on CT at T12 level, hematology ordered bone scan which will be for tomorrow UC pending, on rocephin for now Constipation -Suppository with dose of relistor, Gastrografin enema for jose angel -Micro from [place] grew out no pathologic specimens, Jun 03 G+ cocci, rods, - contamination w/ no further workup Tobacco Abuse - encouraged cessation
[2018-06-30] MEDS ORDERED: Bisacodyl 10 MG Supp RECTAL ONE (11:04)
[2018-06-30 11:38] LABS: Magnesium 1.8 mg/dL (1.5-2.5)
--- NOTE | 2018-06-30 11:39 | P.PNONC ---
Subjective Interval history: Afebrile. Patient lying in bed awake and alert on approach. She states "I do not feel good", she denies any shortness of breath she is currently on room air in no distress. She complains of lower back pain. Currently on heparin drip. Objective Vital Signs/Intake & Output: Vital Signs 06/29/18 12:00 06/29/18 16:00 06/29/18 20:00 Temperature 97.8 F 98.3 F 98.3 F Pulse Rate 76 73 78 Respiratory Rate 24 28 H 25 H Blood Pressure 133/70 123/74 Pulse Oximetry 96 06/29/18 21:08 06/30/18 00:00 06/30/18 01:56 Temperature 98.2 F Pulse Rate 81 87 Respiratory Rate 16 25 H 24 Blood Pressure 120/57 L Pulse Oximetry 96 95 06/30/18 03:29 06/30/18 04:00 06/30/18 08:00 Temperature 98.0 F 98.2 F Pulse Rate 77 76 83 Respiratory Rate 16 26 H 27 H Blood Pressure 115/74 130/72 Pulse Oximetry 93 L 93 L Intake & Output 06/29/18 06/30/18 06/30/18 18:59 06:59 18:59 Intake Total 850 / 850 750 / 750 Balance 850 / 850 750 / 750 Weight 46.3 kg Intake: IV 100 / 100 Rocephin Inj 1,000 MG In NS Inj 100 / 100 100 ML @ 200 mls/hr IV.SIG Q24H PIA Rx#:[id number] Oral 750 / 750 750 / 750 Other: # Voids 8 8 Date of Last Bowel Movement 06/29/18 06/29/18 # Bowel Movements 1 Result Diagrams: 06/30/18 03:43 06/30/18 03:43 Laboratory Results: Laboratory Results - last 24 hr 06/29/18 06/29/18 06/29/18 11:20 14:42 15:43 WBC RBC Hgb Hct MCV MCH MCHC RDW Plt Count MPV APTT 24.9 D Sodium Potassium Chloride Carbon Dioxide Anion Gap BUN Creatinine Estimated GFR Random Glucose Calcium Troponin I Less than 0.02 L Urine Color Yellow Urine Clarity Hazy H Urine pH 6.0 Ur Specific [place] 1.006 Urine Protein Negative Urine Glucose (UA) 50 Urine Ketones Negative Urine Occult Blood Small H Urine Nitrate Negative Urine Bilirubin Negative Urine Urobilinogen Less than 2 Ur Leukocyte Esterase Large H Urine RBC 3 Urine WBC 57 H Ur Squamous Epith Cells 5 Ur Transition Epith Cell 1 Ur Renal Epithelial Cell <1 Urine Bacteria Occasional H Urine Mucus Few H Micro UA Comment Culture indicated Ur Microscopic Review Not Reportable Urine Culture Comments Culture indicated 06/29/18 06/30/18 06/30/18 20:47 03:43 03:43 WBC 6.8 RBC 3.96 L Hgb 11.3 L Hct 33.7 L MCV 85.1 MCH 28.7 MCHC 33.7 RDW 13.9 Plt Count 223 MPV 8.4 APTT 40.6 H D Sodium 141 Potassium 3.4 L Chloride 105 Carbon Dioxide 26.7 Anion Gap 9 BUN 5 L Creatinine 0.65 Estimated GFR Greater than 89 Random Glucose 129 H Calcium 8.0 L Troponin I Urine Color Urine Clarity Urine pH Ur Specific [place] Urine Protein Urine Glucose (UA) Urine Ketones Urine Occult Blood Urine Nitrate Urine Bilirubin Urine Urobilinogen Ur Leukocyte Esterase Urine RBC Urine WBC Ur Squamous Epith Cells Ur Transition Epith Cell Ur Renal Epithelial Cell Urine Bacteria Urine Mucus Micro UA Comment Ur Microscopic Review Urine Culture Comments 06/30/18 03:43 WBC RBC Hgb Hct MCV MCH MCHC RDW Plt Count MPV APTT 41.5 H Sodium Potassium Chloride Carbon Dioxide Anion Gap BUN Creatinine Estimated GFR Random Glucose Calcium Troponin I Urine Color Urine Clarity Urine pH Ur Specific [place] Urine Protein Urine Glucose (UA) Urine Ketones Urine Occult Blood Urine Nitrate Urine Bilirubin Urine Urobilinogen Ur Leukocyte Esterase Urine RBC Urine WBC Ur Squamous Epith Cells Ur Transition Epith Cell Ur Renal Epithelial Cell Urine Bacteria Urine Mucus Micro UA Comment Ur Microscopic Review Urine Culture Comments Culture Results: Microbiology 06/29/18 11:20 Urine Culture - Final Random Urine 10-50,000 cfu/mL mixed gram positive fabi (probable contaminants) 06/29/18 02:00 Stool Occult Blood (ITALO) - Final Stool Hemoccult negative Imaging Studies: Impressions Abdomen/Pelvis CT 06/30/18 00:00 CONCLUSION: 1. Right lower lobe airspace consolidation and 1.3 cm opacity involving the left lower lobe. There is a small to moderate-sized right-sided pleural effusion slightly increased from the prior exam. The left pleural effusion has resolved. Prior PE study demonstrated a large clot burden in these areas of airspace consolidation may reflect pulmonary infarct. 2. The solid organs demonstrate no evidence of infarct. There is a large stool burden present.. Chest CTA 06/30/18 00:00 CONCLUSION: 1. There is a large clot burden identified with multiple areas of pulmonary emboli. The size of these emboli appear stable to slightly decreased in size as compared to the prior exam. There is a worsening right-sided pleural effusion with stable interstitial thickening and airspace consolidation within the right lower lobe. 2. The left-sided pleural effusion has resolved and there is a persistent irregular 1.3 cm opacity identified within the peripheral aspect of the left lower lobe which may represent an area of pulmonary infarct. Medications: Active Medications Generic Name Dose Route Start Last Admin Trade Name Freq PRN Reason Stop Dose Admin Hydrocodone Bitart/Acetaminophen 1 tab 06/28/18 21:20 06/30/18 06:17 [place] 5/325 PO 1 tab Q4H PRN Administration pain > 4 Albuterol 1 ampul 06/28/18 22:00 06/30/18 11:26 Duoneb Neb (Pia) NEB Not Given Q6HR NEB PIA Budesonide/Formoterol Fumarate 2 puff 06/29/18 21:00 06/30/18 09:07 Symbicort 80/4.5 Mcg Inh INH 2 puff BID PIA Administration Heparin Sodium/Dextrose 25,000 unit in 250 mls @ 0 mls/hr 06/29/18 09:58 06/08 16:33 Heparin/D5w 25,000 U/250 Ml IV.CONT 1,200 units/hr TITRATE PRN 12 mls/hr Per Protocol Administration Protocol Per Protocol Ceftriaxone Sodium 1,000 mg/ 100 mls @ 200 mls/hr 06/29/18 14:00 06/29/18 15: 52 Sodium Chloride IV.SIG Infused Q24H PIA Infusion Lidocaine HCl 1 patch 06/29/18 10:00 06/30/18 08:57 Lidoderm 5% Patch.12 Hr T-DERMAL 1 patch DAILY PIA Administration Morphine Sulfate 2 mg 06/29/18 22:00 06/30/18 06:17 Morphine Inj IV.PUSH 2 mg Q4H PRN Administration BREAKTHROUGH PAIN Patch Removal 1 each 06/29/18 21:00 06/29/18 20:53 Remove Old Patch T-DERMAL 1 each HS PIA Administration Objective Remarks: GENERAL: Ill-appearing female patient, lying in bed, in no acute distress.. SKIN: Warm and dry. HEAD: Normocephalic. EYES: No scleral icterus. No injection or drainage. NECK: Supple, trachea midline. No JVD or lymphadenopathy. CARDIOVASCULAR: Regular rate and rhythm without murmurs. RESPIRATORY: Breath sounds equal bilaterally. No accessory muscle use. GASTROINTESTINAL: Abdomen soft, tender BUQ, nondistended. EXTREMITIES: No cyanosis, or edema. MUSCULOSKELETAL: Adequate muscle tone. NEUROLOGICAL: No obvious focal deficit. Awake, alert, and oriented x3. PSYCHIATRIC: Appropriate mood and affect; insight and judgment normal. Assessment/Plan (1) Cachexia Code(s): R64 - Cachexia Status: Acute (2) Tobacco abuse Code(s): Z72.0 - Tobacco use Status: Acute (3) Weight loss Code(s): R63.4 - Abnormal weight loss Status: Acute (4) DVT (deep venous thrombosis) Code(s): I82.409 - Acute embolism and thrombosis of unspecified deep veins of unspecified lower extremity Status: Acute (5) Bilateral pulmonary embolism Code(s): I26.99 - Other pulmonary embolism without acute cor pulmonale Status : Acute - Plan Ms. Fontenot is a 57-year-old female who presented to the emergency department with shortness of breath and chest pain and was found to have bilateral pulmonary embolisms and lower extremity DVTs. She also reported a 10 pound recent weight loss. Plan: 1. Bilateral PE and lower extremity DVTs. Patient currently on a heparin drip. Hypercoagulable workup pending. Prothrombin mutation, factor V Leiden, antiphospholipid antibodies and MARC screening are pending. 2. Possible lytic lesion at T12. Bone scan, CT abdomen/pelvis pending. Patient may need a biopsy of the lytic lesion. 3. Monitor for bleeding. 4. Continue pain and supportive care. - Attending Statement The exam, history, and the medical decision-making described in the above note were completed with the assistance of the mid-level provider. I reviewed and agree with the findings presented. I attest that I had a [id number] encounter with the patient on the same day, and personally performed and documented my assessment and findings in the medical record.
[2018-06-30] MEDS ORDERED: Methylnaltrexone Inj 12 MG/0.6 ML Vial SQ SCH (12:00)
[2018-06-30] MEDS: Potassium Chloride 10 MEQ ER Capsule PO SCH (13:53)
[2018-06-30] MEDS: Heparin Drip 25,000 UNIT/250 ML BAG IV.CONT PRN (13:54)
[2018-07-01] MEDS: Morphine Inj 4 MG/ML Vial IV.PUSH PRN ×5 (03:21→23:15)
[2018-07-01] MEDS: Potassium Chloride 10 MEQ ER Capsule PO SCH (08:48)
[2018-07-01] MEDS: Calcitonin Salmon Nasal 200 UNITS/Actuation - (3.7 ML) NASAL SCH (08:55)
[2018-07-01] MEDS: Budesonide-Formoterol 80/4.5 MCG 6.9 GM Inhaler INH SCH ×2 (08:57→22:07)
[2018-07-01] MEDS: Lidocaine 5% Patch T-DERMAL SCH (09:00)
[2018-07-01] MEDS: Heparin Drip 25,000 UNIT/250 ML BAG IV.CONT PRN (11:23)
[2018-07-01] MEDS ORDERED: Diatrizoate Meglum/Diatrizoate Sod Liq 120 ML Bottle (for RAD diag) RECTAL ONE (12:00)
--- NOTE | 2018-07-01 13:04 | FL ---
EXAM DATE: 07/01/2018 12:58 PM EDT AGE/SEX: 57 years / Female INDICATIONS: Constipation CLINICAL DATA: This is the patient's initial encounter. Patient reports that signs and symptoms have been present for 1 day and indicates a pain score of 0/10. MEDICAL/SURGICAL HISTORY: . Ectopic Hysterectomy. COMPARISON: No prior exams available for comparison. FLUORO TIME: .9 IMAGE COUNT: 7 FINDINGS: Primary vice president global digital marketing film shows stool throughout the colon. Under fluoroscopic guidance a Gastrografin enema was performed with free flow of contrast to the ceca l tip. Moderate stool is seen throughout the colon. Good emptying of contrast on the postevacuation film. CONCLUSION: Unprepped Gastrografin enema for constipation reveals good emptying of stool from the colon. Electronically signed by: Renny Stewart MD 07/01/2018 1:03 PM EDT
--- NOTE | 2018-07-01 13:58 | NM ---
INDICATIONS: Metastatic disease. Thoracic lesion. CLINICAL DATA: This is the patient's initial encounter. Patient reports that signs and symptoms have been present for 1 day and indicates a pain score of 5/10. MEDICAL/SURGICAL HISTORY: None. Tubal ligation. COMPARISON: [facility], CTA PULMONARY W CONTRAST W 3D, 06/28/2018. . No external comparison. TECHNIQUE: . Blood pool imaging was performed after injection of radiotracer.. Whole body bone scan was performed at 2-3 hours. No correlative bone scan available for comparison. DOSE: 30.1 mCi Tc99m MDP IV FINDINGS: Focal increased uptake in the T12 vertebral body. No other areas of increased or decreased radiotracer activity is identified. Symmetrical renal function. CONCLUSION: 1. Focal uptake T12. MRI is pending. 2. Neoplasm would be consideration. Electronically signed by: Renny Stewart MD 07/01/2018 1:56 PM EDT
--- NOTE | 2018-07-01 15:27 | P.PNIM ---
Subjective Interval history: Ms. Fontenot is a 57 year-old with a history of tobacco abuse since the age of 15 who presented to the emergency room in [place] complaining of chest pain and shortness of breath. She was found to have bilateral pulmonary embolism, emphysematous changes and apical lung [place]o, and bilateral pleural effusions on pulmonary CTA and was transferred to the [facility] for hospitalist admission for medical management. The patient is seen in the surgical intensive care unit. She is complaining of severe stabbing pain in her chest and her back that has been relieved somewhat by pain medications. The pain is worsened with deep breathing and positional changes. The patient complains of a 10 pound weight loss over the past few weeks. The patient was previously seen at [facility], [place] in [place] and was treated for pyelonephritis on her first ER visit followed by being treated for colitis. She states she was having pain in her back and abdomen that did not get better despite treatment with antibiotics resulting in her presentation to the [place] emergency room on 06/28/2018. She denies any recent long periods of travel, denies illicit drug abuse, denies any history of blood clots or bleeding disorders, denies any history of cancer, and denies taking any estrogen. She reports leading a relatively sedentary lifestyle and smokes about a pack a day since the age of 15. She denies any family history of blood clots or bleeding disorders. 9-8 Nursing denies any deterioration since last night. Patient herself says her pain is no better. Also says that she has had persistent back pain since being discharged from her last hospitalization for pyelonephritis and colitis. Patient denies any fevers. She denies having any history of blood clots or cancer or any family history of such. Patient states she is an active smoker and says that at home she lives a very sedentary lifestyle just sitting around or laying around for multiple hours during any given day. 9-9 As any deterioration since last night except for when she related that the night nurse had to seek authorization from the nocturnal is to restart the patient's IV morphine which I had discontinued for her low back pain. Patient reports that the Lidoderm patch that started yesterday did not help at all. 9-10 seen by HEMATOLOGY HAD BONE SCAN TODAY DW RN AND PT AND CASE MANAGEMENT We will continue on heparin and Coumadin Goal INR is 2.0 to 3.0 Physical Exam Vital signs: Vital Signs 06/30/18 16:00 06/30/18 20:00 06/30/18 21:56 Temperature 98.0 F 97.9 F Pulse Rate 94 H 83 65 Respiratory Rate 28 H 22 18 Blood Pressure 116/54 L 149/79 H Pulse Oximetry 97 93 L 93 L 07/01/18 00:00 07/01/18 03:46 07/01/18 04:00 Temperature 98.2 F 97.9 F Pulse Rate 76 81 70 Respiratory Rate 18 19 18 Blood Pressure 123/74 132/75 Pulse Oximetry 95 96 07/01/18 08:00 07/01/18 09:58 07/01/18 12:00 Temperature 97.9 F 97.8 F Pulse Rate 74 77 90 Respiratory Rate 16 16 16 Blood Pressure 127/69 131/73 Pulse Oximetry 97 99 97 07/01/18 15:13 07/01/18 15:14 Temperature Pulse Rate 90 Respiratory Rate 18 Blood Pressure Pulse Oximetry 97 Intake & Output 06/30/18 07/01/18 07/01/18 18:59 06:59 18:59 Intake Total 1100 / 1100 240 / 240 250 / 250 Output Total 1000 / 1000 500 / 500 Balance 100 / 100 -260 / -260 250 / 250 Weight 41.8 kg Intake: IV 350 / 350 250 / 250 Heparin/D5W 25,000 U/250 mL 25, 250 / 250 250 / 250 000 unit In 250 ml @ Per Protocol IV.CONT TITRATE PRN Rx #:[id number] Rocephin Inj 1,000 MG In NS Inj 100 / 100 100 ML @ 200 mls/hr IV.SIG Q24H ARINA Rx#:[id number] Oral 750 / 750 240 / 240 Output: Urine 500 / 500 Urine Amount (Catheter) 1000 / 1000 Female External 1000 / 1000 Other: Date of Last Bowel Movement 06/30/18 06/30/18 # Bowel Movements 2 0 Narrative: GENERAL: Alert and oriented 3 talkative and cooperative very thin appearing female SKIN: Warm and dry. HEAD: Atraumatic. Normocephalic. EYES: Pupils equal and round. No scleral icterus. No injection or drainage. ENT: No nasal bleeding or discharge. Mucous membranes pink and moist. NECK: Trachea midline. No JVD. CARDIOVASCULAR: Regular rate and rhythm. S1-S2 no S3 or S4 RESPIRATORY: No accessory muscle use. Clear to auscultation. Breath sounds equal bilaterally. GASTROINTESTINAL: Abdomen soft, non-tender, nondistended. Hepatic and splenic margins not palpable. MUSCULOSKELETAL: Extremities without clubbing, cyanosis, or edema. No obvious deformities. NEUROLOGICAL: Awake and alert. No obvious cranial nerve deficits. Motor grossly within normal limits. 4 out of 5 muscle strength in the arms and legs. Normal speech. PSYCHIATRIC: Appropriate mood and affect; insight and judgment normal. - Urinary Catheter Management Female External Cath placed during this visit: no Results - Labs CBC & Chem 7: 06/30/18 03:43 06/30/18 03:43 Laboratory Results - last 24 hr 07/01/18 04:12 APTT 43.9 H Microbiology 06/29/18 11:20 Random Urine Urine Culture - Final 10-50,000 cfu/mL mixed gram positive fabi (probable contaminants) - Imaging Impressions Bone Scan Nuclear Medicine 07/01/18 00:00 CONCLUSION: 1. Focal uptake T12. MRI is pending. 2. Neoplasm would be consideration. Enema w/Water Soluble 07/01/18 00:00 CONCLUSION: Unprepped Gastrografin enema for constipation reveals good emptying of stool from the colon. Assessment and Plan - Plan Ms. Fontenot is a 57 year-old with a history of tobacco abuse since the age of 15 who presented to the emergency room in [place] complaining of chest pain and shortness of breath. She was found to have bilateral pulmonary embolism, emphysematous changes and apical lung [place]led[place], and bilateral pleural effusions on pulmonary CTA and was transferred to the main hospital for hospitalist admission for medical management. Chest pain Bilateral pulmonary emboli -Heparin drip, bridging with warfarin now per hematology's recommendations -[place] and IV morphine as needed for breakthrough pain -Repeat CTA shows slightly decreased size of clots, decreasing left-sided pleural effusion, right-sided pleural effusion persistent - Nodular opacity of left lower lobe - possible pulmonary infarct per radiology, repeat CT scan in 3 months BL DVTs -Appreciate hematology input, hypercoagulable workup has been started by hematology, starting Coumadin while covering with heparin Emphysematous changes in long-term smoker -ICS and albuterol as needed -Duonebs Back pain -likely multifactorial with possible cause being a T12 lesion as well as possible urinary tract infection being superimposed with substantial constipation -Lytic lesion noted possibly on CT at T12 level, hematology ordered bone scan which will be for tomorrow UC pending, on Rocephin for now Constipation -Suppository with dose of Relistor, Gastrografin enema for jose angel -Micro from [place] grew out no pathologic specimens, Jun 03 G+ cocci, rods, - contamination w/ no further workup Hypokalemia will replace Tobacco Abuse - encouraged cessation Code Status: Full code Discussed Condition With: RN and patient and case management Discharge Planning: Pending therapeutic INR
[2018-07-01 15:49] LABS: INR 1.1 Ratio; Prothrombin Time 11.3 sec (9.8-11.6)
[2018-07-01] MEDS ORDERED: Gadobutrol PF 7.5 MMOL/7.5 ML Vial (for RAD) IV.SIG ONE (19:14)
--- NOTE | 2018-07-01 20:47 | MR ---
EXAM DATE: 07/01/2018 8:02 PM EDT AGE/SEX: 57 years / Female INDICATIONS: . Abnormal CT pulmonary angiogram demonstrating possible lytic lesion in the T12 melva tebral body. The patient had an abnormal bone scan with increased uptake in the T12 vertebral body re gion... CLINICAL DATA: This is the patient's initial encounter. Patient reports that signs and symptoms have been present for 1 day and indicates a pain score of 4/10. MEDICAL/SURGICAL HISTORY: Hypertension. Tubal ligation. COMPARISON: Nuclear medicine bone scan 07/01/2018. CT pulmonary angiogram 06/30/2018.. TECHNIQUE: Multiplanar, multisequence MRI of the thoracic spine was performed without and with 5 ml Gadavist (gadobutrol) contrast as a single exam dose. FINDINGS: Vertebrae: Normal vertebral body height. There is homogeneous signal except for edema in the endplat es at the T12-L1 level. This demonstrates low signal on the T1-weighted images and high signal on the T2-weighted images. There is mild invagination of the superior endplate of L1. Discs: There is mild desiccation. Mild disc space narrowing at the T12-L1 level with anterior extradu ral defect on the sagittal image. Alignment: Normal. Cord: Normal position and configuration. Post Contrast: Enhancement in the endplates at the T12-L1 level. There is apparent mild enhancement in the disc as well. T1-T2: The thecal sac has a normal diameter. No evidence of disc bulge or protrusion. T2-T3: The thecal sac has a normal diameter. No evidence of disc bulge or protrusion. T3-T4: The thecal sac has a normal diameter. No evidence of disc bulge or protrusion. T4-T5: The thecal sac has a normal diameter. No evidence of disc bulge or protrusion. T5-T6: The thecal sac has a normal diameter. No evidence of disc bulge or protrusion. T6-T7: The thecal sac has a normal diameter. No evidence of disc bulge or protrusion. T7-T8: The thecal sac has a normal diameter. No evidence of disc bulge or protrusion. T8-T9: The thecal sac has a normal diameter. No evidence of disc bulge or protrusion. T9-T10: The thecal sac has a normal diameter. No evidence of disc bulge or protrusion. T10-T11: The thecal sac has a normal diameter. No evidence of disc bulge or protrusion. T11-T12: The thecal sac has a normal diameter. No evidence of disc bulge or protrusion. T12-L1: There is a mild annular disc osteophyte complex with mild mass effect on the anterior thecal sac. There is rounding soft tissue edema in the paravertebral soft tissues. CONCLUSION: 1. Focal abnormality at the T12-L1 level with mild invagination of the superior endplate of L1 with surrounding edema and enhancement. The findings are of concern for discitis however a compression fra cture could have a similar appearance. Electronically signed by: Bob Reyes MD 07/01/2018 8:45 PM EDT
[2018-07-02] MEDS: Morphine Inj 4 MG/ML Vial IV.PUSH PRN ×4 (03:50→22:54)
[2018-07-02] MEDS: Potassium Chloride 10 MEQ ER Capsule PO SCH (08:19)
[2018-07-02] MEDS: Lidocaine 5% Patch T-DERMAL SCH (08:20)
[2018-07-02] MEDS: Budesonide-Formoterol 80/4.5 MCG 6.9 GM Inhaler INH SCH ×2 (08:20→20:54)
[2018-07-02] MEDS: Calcitonin Salmon Nasal 200 UNITS/Actuation - (3.7 ML) NASAL SCH (08:20)
[2018-07-02 09:16] LABS: Baso # (Auto) 0.1 th/mm3 (0.0-0.2); Baso % (Auto) 1.3 % (0.0-2.0); Eos # (Auto) 0.3 th/mm3 (0.0-0.4); Eos % (Auto) 5.6 % (0.0-4.0); Hematocrit 34.1 % (35.0-46.0); Hemoglobin 11.6 gm/dL (11.6-15.3); Lymph # (Auto) 1.1 th/mm3 (1.0-4.8); Lymph % (Auto) 18.6 % (9.0-44.0); Mean Corpuscular Hemoglobin 28.7 pg (27.0-34.0); Mean Corpuscular Volume 84.5 fL (80.0-100.0); Mean Platelet Volume 8.4 fL (7.0-11.0); Mono # (Auto) 0.3 th/mm3 (0.0-0.9); Mono % (Auto) 4.4 % (0.0-8.0); Neut # (Auto) 4.2 th/mm3 (1.8-7.7); Neut % (Auto) 70.1 % (16.0-70.0); Platelet Count 275 th/mm3 (150-450); Red Blood Count 4.03 mil/mm3 (4.00-5.30); Red Cell Distribution Width 14.7 % (11.6-17.2); White Blood Count 5.9 th/mm3 (4.0-11.0)
[2018-07-02 09:24] LABS: Activated Partial Thrombo Time 37.9 sec (24.3-30.1); INR 1.3 Ratio; Prothrombin Time 13.4 sec (9.8-11.6)
[2018-07-02] MEDS: Heparin Drip 25,000 UNIT/250 ML BAG IV.CONT PRN (09:51)
[2018-07-02 09:52] LABS: Alanine Aminotransferase 26 U/L (10-53); Albumin 2.8 g/dL (3.4-5.0); Alkaline Phosphatase 70 U/L (45-117); Anion Gap 10 meq/L (5-15); Aspartate Aminotransferase 28 U/L (15-37); Blood Urea Nitrogen 8 mg/dL (7-18); Calcium 8.9 mg/dL (8.5-10.1); Carbon Dioxide 22.1 meq/L (21.0-32.0); Chloride 105 meq/L (98-107); Free T4 (Free Thyroxine) 1.22 ng/dL (0.76-1.46); Glomerular Filtration Rate Greater Than 89 mL/min (>89); Glucose,Random 92 mg/dL (74-106); Magnesium 2.1 mg/dL (1.5-2.5); Phosphorus 4.5 mg/dL (2.5-4.9); Sodium 137 meq/L (136-145); Total Protein 7.8 g/dL (6.4-8.2)
--- NOTE | 2018-07-02 10:51 | P.PNONC ---
Subjective Interval history: Patient lying in bed, complains of lower back pain. She denies any shortness of breath. She reports she has had back pain since May. Due to the back pain she was sedentary. She continues on heparin, bridging to Coumadin. She is currently without a primary care physician. We have discussed that she will need frequent INR checks for Coumadin. Objective Vital Signs/Intake & Output: Vital Signs 07/01/18 12:00 07/01/18 15:13 07/01/18 15:14 Temperature 97.8 F Pulse Rate 90 90 Respiratory Rate 16 18 Blood Pressure 131/73 Pulse Oximetry 97 97 07/01/18 16:00 07/01/18 20:00 07/01/18 21:05 Temperature 97.6 F 94.4 F L Pulse Rate 90 78 91 H Respiratory Rate 16 16 20 Blood Pressure 129/85 129/72 Pulse Oximetry 95 97 07/02/18 00:00 07/02/18 03:21 07/02/18 04:00 Temperature 97.4 F L 98 F Pulse Rate 85 84 77 Respiratory Rate 18 18 16 Blood Pressure 124/74 131/74 Pulse Oximetry 94 L 95 07/02/18 08:00 07/02/18 09:03 Temperature 97.1 F L Pulse Rate 74 70 Respiratory Rate 19 16 Blood Pressure 136/81 Pulse Oximetry 97 Intake & Output 07/01/18 07/02/18 07/02/18 18:59 06:59 18:59 Intake Total 770 / 770 240 / 240 250 / 250 Output Total 800 / 800 Balance 770 / 770 -560 / -560 250 / 250 Weight 43.2 kg Intake: IV 350 / 350 250 / 250 Heparin/D5W 25,000 U/250 mL 25, 250 / 250 250 / 250 000 unit In 250 ml @ Per Protocol IV.CONT TITRATE PRN Rx #:[id number] Rocephin Inj 1,000 MG In NS Inj 100 / 100 100 ML @ 200 mls/hr IV.SIG Q24H PIA Rx#:[id number] Oral 420 / 420 240 / 240 Output: Urine 800 / 800 Other: # Voids 6 Date of Last Bowel Movement 06/30/18 # Bowel Movements 2 2 Result Diagrams: 07/02/18 06:12 07/02/18 06:12 Laboratory Results: Laboratory Results - last 24 hr 07/01/18 07/02/1818 14:50 06:12 06:12 WBC 5.9 RBC 4.03 Hgb 11.6 Hct 34.1 L MCV 84.5 MCH 28.7 MCHC 34.0 RDW 14.7 Plt Count 275 MPV 8.4 Neut % (Auto) 70.1 H Lymph % (Auto) 18.6 [place] % (Auto) 4.4 Eos % (Auto) 5.6 H Baso % (Auto) 1.3 Neut # (Auto) 4.2 Lymph # (Auto) 1.1 [place] # (Auto) 0.3 Eos # (Auto) 0.3 Baso # (Auto) 0.1 WBC Differential . Differential Comment Auto diff final PT 11.3 INR 1.1 APTT Sodium 137 Potassium 5.0 Chloride 105 Carbon Dioxide 22.1 Anion Gap 10 BUN 8 Creatinine 0.54 Estimated GFR Greater than 89 Random Glucose 92 Calcium 8.9 Phosphorus 4.5 Magnesium 2.1 Total Bilirubin 0.2 AST 28 ALT 26 Alkaline Phosphatase 70 Total Protein 7.8 Albumin 2.8 L TSH 3.470 Free T4 1.22 07/02/18 06:17 WBC RBC Hgb Hct MCV MCH MCHC RDW Plt Count MPV Neut % (Auto) Lymph % (Auto) [place] % (Auto) Eos % (Auto) Baso % (Auto) Neut # (Auto) Lymph # (Auto) [place] # (Auto) Eos # (Auto) Baso # (Auto) WBC Differential Differential Comment PT 13.4 H INR 1.3 APTT 37.9 H Sodium Potassium Chloride Carbon Dioxide Anion Gap BUN Creatinine Estimated GFR Random Glucose Calcium Phosphorus Magnesium Total Bilirubin AST ALT Alkaline Phosphatase Total Protein Albumin TSH Free T4 Culture Results: Microbiology 06/29/18 11:20 Urine Culture - Final Random Urine 10-50,000 cfu/mL mixed gram positive fabi (probable contaminants) Imaging Studies: Impressions Bone Scan Nuclear Medicine 07/01/18 00:00 CONCLUSION: 1. Focal uptake T12. MRI is pending. 2. Neoplasm would be consideration. Enema w/Water Soluble 07/01/18 00:00 CONCLUSION: Unprepped Gastrografin enema for constipation reveals good emptying of stool from the colon. Thoracic Spine MRI 07/01/18 00:00 CONCLUSION: 1. Focal abnormality at the T12-L1 level with mild invagination of the superior endplate of L1 with surrounding edema and enhancement. The findings are of concern for discitis however a compression fracture could have a similar appearance. Medications: Active Medications Generic Name Dose Route Start Last Admin Trade Name Freq PRN Reason Stop Dose Admin Hydrocodone Bitart/Acetaminophen 1 tab 06/28/18 21:20 07/02/18 08:19 [place] 5/325 PO 1 tab Q4H PRN Administration pain > 4 Albuterol 1 ampul 06/28/18 22:00 07/02/18 09:01 Duoneb Neb (Pia) NEB 1 ampul Q6HR NEB PIA Administration Budesonide/Formoterol Fumarate 2 puff 06/29/18 21:00 07/02/18 08:20 Symbicort 80/4.5 Mcg Inh INH 2 puff BID PIA Administration Calcitonin [place] 1 sprays 07/01/18 09:00 07/02/18 08:20 Calcitonin [place] Nasal NASAL 1 sprays DAILY PIA Administration Heparin Sodium/Dextrose 25,000 unit in 250 mls @ 0 mls/hr 06/29/18 09:58 09/08 09:51 Heparin/D5w 25,000 U/250 Ml IV.CONT 1,300 units/hr TITRATE PRN 13 mls/hr Per Protocol Administration Protocol Per Protocol Ceftriaxone Sodium 1,000 mg/ 100 mls @ 200 mls/hr 06/29/18 14:00 07/01/18 14: 45 Sodium Chloride IV.SIG Infused Q24H PIA Infusion Lidocaine HCl 1 patch 06/29/18 10:00 07/02/18 08:20 Lidoderm 5% Patch.12 Hr T-DERMAL 1 patch DAILY PIA Administration Morphine Sulfate 2 mg 06/29/18 22:00 07/02/18 03:50 Morphine Inj IV.PUSH 2 mg Q4H PRN Administration BREAKTHROUGH PAIN Patch Removal 1 each 06/29/18 21:00 07/01/18 22:06 Remove Old Patch T-DERMAL Not Given HS PIA Potassium Chloride 10 meq 06/30/18 12:00 07/02/18 08:19 Kcl PO 10 meq DAILY PIA Administration Warfarin Sodium 6 mg 06/30/18 16:00 07/01/18 16:16 Coumadin PO 6 mg DAILY@1600 PIA Administration Objective Remarks: GENERAL: Ill-appearing female patient, lying in bed, in no acute distress. SKIN: Warm and dry. HEAD: Normocephalic. EYES: No scleral icterus. No injection or drainage. NECK: Supple, trachea midline. CARDIOVASCULAR: Regular rate and rhythm without murmurs. RESPIRATORY: Breath sounds equal bilaterally. No accessory muscle use. GASTROINTESTINAL: Abdomen soft, non-tender, nondistended. +BS. EXTREMITIES: No cyanosis, or edema. MUSCULOSKELETAL: Adequate muscle tone. NEUROLOGICAL: No obvious focal deficit. Awake, alert, and oriented x3. PSYCHIATRIC: Appropriate mood and affect; insight and judgment normal. Assessment/Plan (1) Cachexia Code(s): R64 - Cachexia Status: Acute (2) Tobacco abuse Code(s): Z72.0 - Tobacco use Status: Acute (3) Weight loss Code(s): R63.4 - Abnormal weight loss Status: Acute (4) DVT (deep venous thrombosis) Code(s): I82.409 - Acute embolism and thrombosis of unspecified deep veins of unspecified lower extremity Status: Acute (5) Bilateral pulmonary embolism Code(s): I26.99 - Other pulmonary embolism without acute cor pulmonale Status : Acute - Plan Ms. Fontenot is a 57-year-old female who presented to the emergency department with shortness of breath and chest pain and was found to have bilateral pulmonary embolisms and lower extremity DVTs. She also reported a 10 pound recent weight loss. Plan: 1. Bilateral PE and lower extremity DVTs. Patient currently on a heparin drip , bridging to Coumadin. Hypercoagulable workup pending. Prothrombin mutation, factor V Leiden, antiphospholipid antibodies and MARC screening are pending. 2. Possible lytic lesion at T12. Bone scan showed focal uptake at T12, neoplasm being a consideration. MRI thoracic showed: focal abnormality at the T12-L1 level with mild invagination of the superior endplate of L1 with surrounding edema and enhancement. The findings are of concern for discitis however a compression fracture could have a similar appearance. May need ortho consult, will defer to attending. 3. Continues on heparin drip with Coumadin bridge. Monitor for bleeding. 4. Patient will need long-term anticoagulation. She is currently without a PCP or insurance. We have discussed that she will need a PCP and have and will have to have frequent INR lab draws for Coumadin. She verbalizes an understanding. 5. Continue pain and supportive care. - Attending Statement The exam, history, and the medical decision-making described in the above note were completed with the assistance of the mid-level provider. I reviewed and agree with the findings presented. I attest that I had a [id number] encounter with the patient on the same day, and personally performed and documented my assessment and findings in the medical record. Patient is tolerating heparin and Coumadin. She has no bleeding. Shortness of breath has improved. She still had back pain. MRI showed lesion in T12 suggestive for possible discitis but compression fracture cannot be ruled out. Orthopedic surgery have been consulted and suggest biopsy. We will need to hold the Coumadin if patient is going to have biopsy.
--- NOTE | 2018-07-02 13:28 | P.PNIM ---
Subjective Interval history: Ms. Fontenot is a 57 year-old with a history of tobacco abuse since the age of 15 who presented to the emergency room in [place] complaining of chest pain and shortness of breath. She was found to have bilateral pulmonary embolism, emphysematous changes and apical lung [place]ledo, and bilateral pleural effusions on pulmonary CTA and was transferred to the [facility] hospital for hospitalist admission for medical management. The patient is seen in the surgical intensive care unit. She is complaining of severe stabbing pain in her chest and her back that has been relieved somewhat by pain medications. The pain is worsened with deep breathing and positional changes. The patient complains of a 10 pound weight loss over the past few weeks. The patient was previously seen at [facility] in [place] and was treated for pyelonephritis on her first ER visit followed by being treated for colitis. She states she was having pain in her back and abdomen that did not get better despite treatment with antibiotics resulting in her presentation to the [place] emergency room on 06/28/2018. She denies any recent long periods of travel, denies illicit drug abuse, denies any history of blood clots or bleeding disorders, denies any history of cancer, and denies taking any estrogen. She reports leading a relatively sedentary lifestyle and smokes about a pack a day since the age of 15. She denies any family history of blood clots or bleeding disorders. 9-8 Nursing denies any deterioration since last night. Patient herself says her pain is no better. Also says that she has had persistent back pain since being discharged from her last hospitalization for pyelonephritis and colitis. Patient denies any fevers. She denies having any history of blood clots or cancer or any family history of such. Patient states she is an active smoker and says that at home she lives a very sedentary lifestyle just sitting around or laying around for multiple hours during any given day. 9-9 As any deterioration since last night except for when she related that the night nurse had to seek authorization from the nocturnal is to restart the patient's IV morphine which I had discontinued for her low back pain. Patient reports that the Lidoderm patch that started yesterday did not help at all. 9-10 seen by HEMATOLOGY HAD BONE SCAN TODAY DW RN AND PT AND CASE MANAGEMENT We will continue on heparin and Coumadin Goal INR is 2.0 to 3.0 9-11 INR IS ONLY 1.3 CONTINUE HEPARIN DRIP AND LOAD COUMADIN DW RN AND PT AND CM AM LABS NO NEW COMPLAINTS Physical Exam Vital signs: Vital Signs 07/01/18 15:13 07/01/18 15:14 07/01/18 16:00 Temperature 97.6 F Pulse Rate 90 90 Respiratory Rate 18 16 Blood Pressure 129/85 Pulse Oximetry 97 95 07/01/18 20:00 07/01/18 21:05 07/02/18 00:00 Temperature 94.4 F L 97.4 F L Pulse Rate 78 91 H 85 Respiratory Rate 16 20 18 Blood Pressure 129/72 124/74 Pulse Oximetry 97 94 L 07/02/18 03:21 07/02/18 04:00 07/02/18 08:00 Temperature 98 F 97.1 F L Pulse Rate 84 77 75 Respiratory Rate 18 16 19 Blood Pressure 131/74 136/81 Pulse Oximetry 95 97 07/02/18 09:03 07/02/18 12:10 Temperature 98.1 F Pulse Rate 70 81 Respiratory Rate 16 18 Blood Pressure 129/75 Pulse Oximetry 98 Intake & Output 07/01/18 07/02/18 07/02/18 18:59 06:59 18:59 Intake Total 770 / 770 240 / 240 250 / 250 Output Total 800 / 800 Balance 770 / 770 -560 / -560 250 / 250 Weight 43.2 kg Intake: IV 350 / 350 250 / 250 Heparin/D5W 25,000 U/250 mL 25, 250 / 250 250 / 250 000 unit In 250 ml @ Per Protocol IV.CONT TITRATE PRN Rx #:[id number] Rocephin Inj 1,000 MG In NS Inj 100 / 100 100 ML @ 200 mls/hr IV.SIG Q24H ARINA Rx#:[id number] Oral 420 / 420 240 / 240 Output: Urine 800 / 800 Other: # Voids 6 Date of Last Bowel Movement 06/30/18 # Bowel Movements 2 2 Narrative: GENERAL: Alert and oriented 3 talkative and cooperative very thin appearing female SKIN: Warm and dry. HEAD: Atraumatic. Normocephalic. EYES: Pupils equal and round. No scleral icterus. No injection or drainage. ENT: No nasal bleeding or discharge. Mucous membranes pink and moist. NECK: Trachea midline. No JVD. CARDIOVASCULAR: Regular rate and rhythm. S1-S2 no S3 or S4 RESPIRATORY: No accessory muscle use. Clear to auscultation. Breath sounds equal bilaterally. GASTROINTESTINAL: Abdomen soft, non-tender, nondistended. Hepatic and splenic margins not palpable. MUSCULOSKELETAL: Extremities without clubbing, cyanosis, or edema. No obvious deformities. NEUROLOGICAL: Awake and alert. No obvious cranial nerve deficits. Motor grossly within normal limits. 4 out of 5 muscle strength in the arms and legs. Normal speech. PSYCHIATRIC: Appropriate mood and affect; insight and judgment normal. - Urinary Catheter Management Female External Cath placed during this visit: no Results - Labs CBC & Chem 7: 07/02/18 06:12 07/02/18 06:12 Laboratory Results - last 24 hr 07/01/18 07/02/18 07/02/18 14:50 06:12 06:12 WBC 5.9 RBC 4.03 Hgb 11.6 Hct 34.1 L MCV 84.5 MCH 28.7 MCHC 34.0 RDW 14.7 Plt Count 275 MPV 8.4 Neut % (Auto) 70.1 H Lymph % (Auto) 18.6 [place] % (Auto) 4.4 Eos % (Auto) 5.6 H Baso % (Auto) 1.3 Neut # (Auto) 4.2 Lymph # (Auto) 1.1 [place] # (Auto) 0.3 Eos # (Auto) 0.3 Baso # (Auto) 0.1 WBC Differential . Differential Comment Auto diff final PT 11.3 INR 1.1 APTT Sodium 137 Potassium 5.0 Chloride 105 Carbon Dioxide 22.1 Anion Gap 10 BUN 8 Creatinine 0.54 Estimated GFR Greater than 89 Random Glucose 92 Calcium 8.9 Phosphorus 4.5 Magnesium 2.1 Total Bilirubin 0.2 AST 28 ALT 26 Alkaline Phosphatase 70 Total Protein 7.8 Albumin 2.8 L TSH 3.470 Free T4 1.22 07/02/18 06:17 WBC RBC Hgb Hct MCV MCH MCHC RDW Plt Count MPV Neut % (Auto) Lymph % (Auto) [place] % (Auto) Eos % (Auto) Baso % (Auto) Neut # (Auto) Lymph # (Auto) [place] # (Auto) Eos # (Auto) Baso # (Auto) WBC Differential Differential Comment PT 13.4 H INR 1.3 APTT 37.9 H Sodium Potassium Chloride Carbon Dioxide Anion Gap BUN Creatinine Estimated GFR Random Glucose Calcium Phosphorus Magnesium Total Bilirubin AST ALT Alkaline Phosphatase Total Protein Albumin TSH Free T4 - Imaging Impressions Bone Scan Nuclear Medicine 07/01/18 00:00 CONCLUSION: 1. Focal uptake T12. MRI is pending. 2. Neoplasm would be consideration. Thoracic Spine MRI 07/01/18 00:00 CONCLUSION: 1. Focal abnormality at the T12-L1 level with mild invagination of the superior endplate of L1 with surrounding edema and enhancement. The findings are of concern for discitis however a compression fracture could have a similar appearance. - Procedures NONE Assessment and Plan - Plan Ms. Fontenot is a 57 year-old with a history of tobacco abuse since the age of 15 who presented to the emergency room in [place] complaining of chest pain and shortness of breath. She was found to have bilateral pulmonary embolism, emphysematous changes and apical lung [place]o, and bilateral pleural effusions on pulmonary CTA and was transferred to the main hospital for hospitalist admission for medical management. Chest pain Bilateral pulmonary emboli -Heparin drip, bridging with warfarin now per hematology's recommendations -[place] and IV morphine as needed for breakthrough pain -Repeat CTA shows slightly decreased size of clots, decreasing left-sided pleural effusion, right-sided pleural effusion persistent - Nodular opacity of left lower lobe - possible pulmonary infarct per radiology, repeat CT scan in 3 months BL DVTs -Appreciate hematology input, hypercoagulable workup has been started by hematology, starting Coumadin while covering with heparin Emphysematous changes in long-term smoker -ICS and albuterol as needed -Duonebs Back pain -likely multifactorial with possible cause being a T12 lesion as well as possible urinary tract infection being superimposed with substantial constipation -Lytic lesion noted possibly on CT at T12 level, hematology ordered bone scan which will be for tomorrow UC pending, on Rocephin for now CONSULT ORTHO FOR T12 LESION ETC Constipation -Suppository with dose of Relistor, Gastrografin enema for jose angel -Micro from [place] grew out no pathologic specimens, Jun 03 G+ cocci, rods, - contamination w/ no further workup Hypokalemia will replace Tobacco Abuse - encouraged cessation MRSA ON SCREEN- CONTINUE IN ISOLATION Code Status: FULL CODE Discussed Condition With: RN AND PT AND CM Discharge Planning: Pending therapeutic INR 2.0 TO 3.0
--- NOTE | 2018-07-02 15:40 | P.CONOP ---
[facility] Orthopedics Consult Note - [facility] Consult date: 07/02/18 Consult reason: back pain Chief complaint: bilateral pulmonary embolism Narrative: 57 year-old with a history of tobacco abuse since the age of 15 who presented to the emergency room in [place] complaining of chest pain and shortness of breath. She was found to have bilateral pulmonary embolism, emphysematous changes in apical lung [place]ledo, and bilateral pleural effusions on pulmonary CTA and was transferred to the main hospital for hospitalist admission for medical management. She is complaining of severe stabbing pain in her chest and her back that has been relieved somewhat by pain medications. The pain is worsened with deep breathing and positional changes. The patient complains of a 10 pound weight loss over the past few weeks. The patient was previously seen at [facility] in [place] and was treated for pyelonephritis on her first ER visit followed by being treated for colitis. She states she was having pain in her back and abdomen that did not get better despite treatment with antibiotics resulting in her presentation to the [place] emergency room on 06/28/2018. She denies any recent long periods of travel, denies illicit drug abuse, denies any history of blood clots or bleeding disorders, denies any history of cancer, and denies taking any estrogen. She reports leading a relatively sedentary lifestyle and smokes about a pack a day since the age of 15. She denies any family history of blood clots or bleeding disorders. Orthopedics is consulted after abnormal bone scan and an MRI scan with concerning lytic lesion around T12. Review of Systems Denies fevers, chills, blurry vision, throat pain, cough, chest pain or abdominal pain. Does complain of significant back pain. Denies any numbness or tingling. Denies weakness, denies rash, difficulty with urination. Denies change in balance, anxiety, other extremity pain or injury. Reports mid to low back pain for greater than 2 months. [facility] - History History Provided By: Patient - Medical History Medical History: Medical History (Last Reviewed 07/01/18 @ 15:34 by Lyn Conner) History of ectopic Tobacco abuse Onset Date: ~1974 - Surgical History Surgical History: Surgical History (Last Reviewed 07/01/18 @ 15:34 by Lyn Conner) History of bilateral salpingectomy - Family History Family History: Family History (Last Reviewed 06/29/18 @ 20:22 by Roger Polanco MD) Mother Hypertension - Tobacco History Second Hand Smoke Exposure: Yes Tobacco Use In Past 30 Days: Yes Smoking Status: Heavy tobacco smoker Tobacco Type: Cigarettes Packs Per Day: 1 Years Smoked: 42 - Alcohol History How Often Do You Have a Drink Containing Alcohol: Never - Substance Use History Substance History: No History of Abuse Medications and Allergies Active Medications: Active Medications Hydrocodone Bitart/Acetaminophen ([place] 5/325) 1 tab PO Q4H PRN PRN Reason: pain > 4 Last Admin: 07/02/18 15:03 Dose: 1 tab Al Hydroxide/Mg Hydroxide (Milk Of [place]) 30 ml PO Q12H PRN PRN Reason: Mild Constipation Albuterol (Duoneb Neb (Prn)) 1 ampul NEB Q2HR NEB PRN PRN Reason: SHORTNESS OF BREATH/WHEEZING Albuterol (Duoneb Neb (Pia)) 1 ampul NEB Q6HR NEB PIA Last Admin: 07/02/18 09:01 Dose: 1 ampul Budesonide/Formoterol Fumarate (Symbicort 80/4.5 Mcg Inh) 2 puff INH BID PIA Last Admin: 07/02/18 08:20 Dose: 2 puff Calcitonin [place] (Calcitonin [place] Nasal) 1 sprays NASAL DAILY PIA Last Admin: 07/02/18 08:20 Dose: 1 sprays Heparin Sodium/Dextrose (Heparin/D5w 25,000 U/250 Ml) 25,000 unit in 250 mls @ 0 mls/hr IV.CONT TITRATE PRN; Protocol PRN Reason: Per Protocol Last Admin: 07/02/18 09:51 Dose: 1,300 units/hr, 13 mls/hr Ceftriaxone Sodium 1,000 mg/ (Sodium Chloride) 100 mls @ 200 mls/hr IV.SIG Q24H PIA Last Admin: 07/02/18 15:02 Dose: 200 mls/hr Lidocaine HCl (Lidoderm 5% Patch.12 Hr) 1 patch T-DERMAL DAILY [facility] Last Admin: 07/02/18 08:20 Dose: 1 patch Morphine Sulfate (Morphine Inj) 2 mg IV.PUSH Q4H PRN PRN Reason: BREAKTHROUGH PAIN Last Admin: 07/02/18 11:11 Dose: 2 mg Patch Removal (Remove Old Patch) 1 each T-DERMAL HS [facility] Last Admin: 07/01/18 22:06 Dose: Not Given Potassium Chloride (Kcl) 10 meq PO DAILY [facility] Last Admin: 07/02/18 08:19 Dose: 10 meq Warfarin Sodium (Coumadin) 6 mg PO DAILY@1600 [facility] Last Admin: 07/02/18 15:03 Dose: 6 mg Allergies Allergy/AdvReac Type Severity Reaction Status Date / Time No Known Allergies Allergy Unverified 06/28/18 11:27 Home Medications Medication Instructions Recorded Confirmed Type No Known Home Medications 06/28/18 06/28/18 History Exam Vital signs: Vital Signs 07/01/18 16:00 07/01/18 20:00 07/01/18 21:05 Temperature 97.6 F 94.4 F L Pulse Rate 90 78 91 H Respiratory Rate 16 16 20 Blood Pressure 129/85 129/72 Pulse Oximetry 95 97 07/02/18 00:00 07/02/18 03:21 07/02/18 04:00 Temperature 97.4 F L 98 F Pulse Rate 85 84 77 Respiratory Rate 18 18 16 Blood Pressure 124/74 131/74 Pulse Oximetry 94 L 95 07/02/18 08:00 07/02/18 09:03 07/02/18 12:10 Temperature 97.1 F L 98.1 F Pulse Rate 75 70 81 Respiratory Rate 19 16 18 Blood Pressure 136/81 129/75 Pulse Oximetry 97 98 Intake & Output 07/01/18 07/02/18 07/02/18 18:59 06:59 18:59 Intake Total 770 / 770 240 / 240 250 / 250 Output Total 800 / 800 Balance 770 / 770 -560 / -560 250 / 250 Weight 43.2 kg Intake: IV 350 / 350 250 / 250 Heparin/D5W 25,000 U/250 mL 25, 250 / 250 250 / 250 000 unit In 250 ml @ Per Protocol IV.CONT TITRATE PRN Rx #:[id number] Rocephin Inj 1,000 MG In NS Inj 100 / 100 100 ML @ 200 mls/hr IV.SIG Q24H PIA Rx#:[id number] Oral 420 / 420 240 / 240 Output: Urine 800 / 800 Other: # Voids 6 Date of Last Bowel Movement 06/30/18 # Bowel Movements 2 2 Narrative: A, alert, no acute distress Normocephalic Pupils equal No JVD Moist mucous membranes Soft nontender abdomen Regular rate Nonlabored respirations Back: Mild tenderness over midline and paraspinal muscles at thoracolumbar junction. No palpable step-offs. No erythema or significant edema. Bilateral lower extremities: 5 out of 5 strength throughout. Sensation appears intact. Full active range of motion without pain. Brisk cap refill. Bilateral upper extremity: No tenderness palpation, visible deformities. Full active strength and range of motion throughout. Sensation intact. Brisk cap refill. No rash Normal affect Results - Labs Result Diagrams: 07/02/18 06:12 07/02/18 06:12 Labs: Laboratory Results - last 24 hr 07/01/18 07/02/18 07/02/18 14:50 06:12 06:12 WBC 5.9 RBC 4.03 Hgb 11.6 Hct 34.1 L MCV 84.5 MCH 28.7 MCHC 34.0 RDW 14.7 Plt Count 275 MPV 8.4 Neut % (Auto) 70.1 H Lymph % (Auto) 18.6 Andrew % (Auto) 4.4 Eos % (Auto) 5.6 H Baso % (Auto) 1.3 Neut # (Auto) 4.2 Lymph # (Auto) 1.1 Andrew # (Auto) 0.3 Eos # (Auto) 0.3 Baso # (Auto) 0.1 WBC Differential . Differential Comment Auto diff final PT 11.3 INR 1.1 APTT Sodium 137 Potassium 5.0 Chloride 105 Carbon Dioxide 22.1 Anion Gap 10 BUN 8 Creatinine 0.54 Estimated GFR Greater than 89 Random Glucose 92 Calcium 8.9 Phosphorus 4.5 Magnesium 2.1 Total Bilirubin 0.2 AST 28 ALT 26 Alkaline Phosphatase 70 Total Protein 7.8 Albumin 2.8 L TSH 3.470 Free T4 1.22 07/02/18 06:17 WBC RBC Hgb Hct MCV MCH MCHC RDW Plt Count MPV Neut % (Auto) Lymph % (Auto) Andrew % (Auto) Eos % (Auto) Baso % (Auto) Neut # (Auto) Lymph # (Auto) Andrew # (Auto) Eos # (Auto) Baso # (Auto) WBC Differential Differential Comment PT 13.4 H INR 1.3 APTT 37.9 H Sodium Potassium Chloride Carbon Dioxide Anion Gap BUN Creatinine Estimated GFR Random Glucose Calcium Phosphorus Magnesium Total Bilirubin AST ALT Alkaline Phosphatase Total Protein Albumin TSH Free T4 - Diagnostic results Imaging: Impressions Thoracic Spine MRI 07/01/18 00:00 CONCLUSION: 1. Focal abnormality at the T12-L1 level with mild invagination of the superior endplate of L1 with surrounding edema and enhancement. The findings are of concern for discitis however a compression fracture could have a similar appearance. Assessment and Plan - Assessment and Plan 57-year-old female with persistent low back pain with MRI and bone scan showing possible lytic lesion with significant enhancement MRI and bone scan reviewed by myself. There is significant edema around the T12 -L1 endplates with what appears to be almost erosion of the superior endplate of L1. This is highly suspicious for possible diskitis versus fracture. Given the appearance, I am more concerned for possible diskitis and would certainly recommend biopsy by Interventional Radiology. I do not appreciate any clear fracture lines to indicate acute compression fracture. Certainly, malignancy cannot be excluded although I do not appreciate a clearly defined lesion on MRI. However, given her smoking history, multiple blood clots, and unintentional weight loss, malignancy remains on the differential. Patient is currently on a heparin drip with bridging to coumadin for bilateral PEs and lower extremity DVTs. This would need to be held along with the Coumadin in order to obtain a biopsy by Interventional Radiology and I would defer to the primary team regarding when this could be safely done.
[2018-07-02 16:41] LABS: Hemoglobin A1c 5.6 % (4.3-6.0)
[2018-07-03] MEDS: Morphine Inj 4 MG/ML Vial IV.PUSH PRN ×3 (03:46→13:51)
[2018-07-03 07:17] LABS: INR 1.7 Ratio; Prothrombin Time 16.9 sec (9.8-11.6)
[2018-07-03] MEDS: Heparin Drip 25,000 UNIT/250 ML BAG IV.CONT PRN (07:17)
[2018-07-03] MEDS: Lidocaine 5% Patch T-DERMAL SCH (08:53)
[2018-07-03] MEDS: Potassium Chloride 10 MEQ ER Capsule PO SCH (08:53)
[2018-07-03] MEDS: Budesonide-Formoterol 80/4.5 MCG 6.9 GM Inhaler INH SCH (08:54)
[2018-07-03] MEDS: Calcitonin Salmon Nasal 200 UNITS/Actuation - (3.7 ML) NASAL SCH (08:54)
[2018-07-03] MEDS ORDERED: Naproxen 250 MG Tablet PO ONE (14:00)
--- NOTE | 2018-07-03 14:02 | P.PNIM ---
Subjective Interval history: No shortness of breath, chest pain present, back pain present. No fevers overnight. No cough. Physical Exam Vital signs: Vital Signs 07/02/18 15:52 07/02/18 16:00 07/02/18 16:26 Temperature 98.4 F Pulse Rate 71 89 85 Respiratory Rate 18 18 Blood Pressure 130/70 Pulse Oximetry 99 07/02/18 20:00 07/02/18 20:57 07/03/18 00:00 Temperature 97.8 F 97.6 F Pulse Rate 83 70 84 Respiratory Rate 18 14 18 Blood Pressure 130/76 125/71 Pulse Oximetry 97 98 98 07/03/18 00:40 07/03/18 04:00 07/03/18 04:42 Temperature 97.7 F Pulse Rate 106 H 86 121 H Respiratory Rate 21 Blood Pressure 122/70 Pulse Oximetry 94 L 07/03/18 08:00 Temperature 97.8 F Pulse Rate 75 Respiratory Rate 20 Blood Pressure 114/79 Pulse Oximetry 96 Intake & Output 07/02/18 07/03/18 07/03/18 18:59 06:59 18:59 Intake Total 350 / 350 490 / 490 Output Total 800 / 800 Balance 350 / 350 -310 / -310 Weight 45.6 kg Intake: IV 350 / 350 250 / 250 Heparin/D5W 25,000 U/250 mL 25, 250 / 250 250 / 250 000 unit In 250 ml @ Per Protocol IV.CONT TITRATE PRN Rx #:[id number] Rocephin Inj 1,000 MG In NS Inj 100 / 100 100 ML @ 200 mls/hr IV.SIG Q24H ARINA Rx#:[id number] Oral 240 / 240 Output: Urine 800 / 800 Other: Date of Last Bowel Movement 06/30/18 # Bowel Movements 2 Narrative: GENERAL: NAD, A&Ox3 HEAD: Normocephalic. NECK: Supple, trachea midline. No lymphadenopathy. EYES: No scleral icterus. No injection or drainage. CARDIOVASCULAR: Regular rate and rhythm without murmurs, gallops, or rubs. RESPIRATORY: Breath sounds equal bilaterally. No accessory muscle use. GASTROINTESTINAL: Abdomen soft, non-tender, nondistended. MUSCULOSKELETAL: No cyanosis, or edema. SKIN: Warm and dry. NEURO: No focal neurological deficits. - Urinary Catheter Management Female External Cath placed during this visit: no Results - Labs CBC & Chem 7: 09/11/18 06:12 07/02/18 06:12 Laboratory Results - last 24 hr 07/02/18 07/02/18 07/03/18 06:12 23:48 04:57 PT 16.9 H INR 1.7 APTT 49.9 H D Hemoglobin A1c 5.6 07/03/18 10:07 PT INR APTT 44.3 H Hemoglobin A1c - Procedures NONE Assessment and Plan - Plan 57 year-old admitted secondary to acute shortness of breath from a pulmonary embolism bilaterally. Bilateral DVTs Bilateral pulmonary emboli Chest pain Hematology following Continue Coumadin Patient is currently on a heparin drip for bridging Continue pain treatments Nodular opacity Left lower lobe lung Three-month follow-up recommended Back pain Occlusion at T12 Bone scan pending Orthophoric Continue Rocephin Constipation Monitor for bowel movements Stool softeners and laxatives as needed Hypokalemia Replace and monitor as needed Tobacco Abuse Emphysema Cessation recommended Continue duo nebs Continue albuterol as needed Discharge Planning: Pending therapeutic INR 2.0 TO 3.0
--- NOTE | 2018-07-03 15:37 | P.PNONC ---
Subjective Interval history: Patient lying in bed, still with back pain. She reports good appetite. Objective Vital Signs/Intake & Output: Vital Signs 07/02/18 15:52 07/02/18 16:00 07/02/18 16:26 Temperature 98.4 F Pulse Rate 71 89 85 Respiratory Rate 18 18 Blood Pressure 130/70 Pulse Oximetry 99 07/02/18 20:00 07/02/18 20:57 07/03/18 00:00 Temperature 97.8 F 97.6 F Pulse Rate 83 70 84 Respiratory Rate 18 14 18 Blood Pressure 130/76 125/71 Pulse Oximetry 97 98 98 07/03/18 00:40 07/03/18 04:00 07/03/18 04:42 Temperature 97.7 F Pulse Rate 106 H 86 121 H Respiratory Rate 21 Blood Pressure 122/70 Pulse Oximetry 94 L 07/03/18 08:00 Temperature 97.8 F Pulse Rate 75 Respiratory Rate 20 Blood Pressure 114/79 Pulse Oximetry 96 Intake & Output 07/02/18 07/03/18 07/03/18 18:59 06:59 18:59 Intake Total 350 / 350 490 / 490 100 / 100 Output Total 800 / 800 Balance 350 / 350 -310 / -310 100 / 100 Weight 45.6 kg Intake: IV 350 / 350 250 / 250 100 / 100 Heparin/D5W 25,000 U/250 mL 25, 250 / 250 250 / 250 000 unit In 250 ml @ Per Protocol IV.CONT TITRATE PRN Rx #:[id number] Rocephin Inj 1,000 MG In NS Inj 100 / 100 100 / 100 100 ML @ 200 mls/hr IV.SIG Q24H ARINA Rx#:[id number] Oral 240 / 240 Output: Urine 800 / 800 Other: Date of Last Bowel Movement 06/30/18 # Bowel Movements 2 Result Diagrams: 07/02/18 06:12 07/02/18 06:12 Laboratory Results: Laboratory Results - last 24 hr 07/02/18 07/02/18 07/03/18 06:12 23:48 04:57 PT 16.9 H INR 1.7 APTT 49.9 H D Hemoglobin A1c 5.6 07/03/18 10:07 PT INR APTT 44.3 H Hemoglobin A1c Medications: Active Medications Generic Name Dose Route Start Last Admin Trade Name Freq PRN Reason Stop Dose Admin Budesonide/Formoterol Fumarate 2 puff 06/29/18 21:00 07/03/18 08:54 Symbicort 80/4.5 Mcg Inh INH 2 puff BID ARINA Administration Calcitonin [place] 1 sprays 07/01/18 09:00 07/03/18 08:54 Calcitonin [place] Nasal NASAL 1 sprays DAILY ARINA Administration Heparin Sodium/Dextrose 25,000 unit in 250 mls @ 0 mls/hr 06/29/18 09:58 10/08 07:17 Heparin/D5w 25,000 U/250 Ml IV.CONT 1,300 units/hr TITRATE PRN 13 mls/hr Per Protocol Administration Protocol Per Protocol Ceftriaxone Sodium 1,000 mg/ 100 mls @ 200 mls/hr 06/29/18 14:00 07/03/18 14: 21 Sodium Chloride IV.SIG Infused Q24H ARINA Infusion Lidocaine HCl 1 patch 06/29/18 10:00 07/03/18 08:53 Lidoderm 5% Patch.12 Hr T-DERMAL Not Given DAILY ARINA Patch Removal 1 each 06/29/18 21:00 07/02/18 20:59 Remove Old Patch T-DERMAL Not Given HS ARINA Potassium Chloride 10 meq 06/30/18 12:00 07/03/18 08:53 Kcl PO 10 meq DAILY ARINA Administration Warfarin Sodium 6 mg 06/30/18 16:00 07/02/18 15:03 Coumadin PO 6 mg DAILY@1600 ARINA Administration Objective Remarks: GENERAL: cachectic female patient, lying in bed, in no acute distress. SKIN: Warm and dry. HEAD: Normocephalic. EYES: No scleral icterus. No injection or drainage. NECK: Supple, trachea midline. CARDIOVASCULAR: +S1/S2 without murmurs. RESPIRATORY: Breath sounds clear, equal bilaterally. Non-labored. GASTROINTESTINAL: Abdomen soft, non-tender, nondistended. +BS. EXTREMITIES: No cyanosis, or edema. MUSCULOSKELETAL: Adequate muscle tone. NEUROLOGICAL: No obvious focal deficit. Awake, alert, and oriented x3. PSYCHIATRIC: Appropriate mood and affect; insight and judgment normal. Assessment/Plan (1) Cachexia Code(s): R64 - Cachexia Status: Acute (2) Tobacco abuse Code(s): Z72.0 - Tobacco use Status: Acute (3) Weight loss Code(s): R63.4 - Abnormal weight loss Status: Acute (4) DVT (deep venous thrombosis) Code(s): I82.409 - Acute embolism and thrombosis of unspecified deep veins of unspecified lower extremity Status: Acute (5) Bilateral pulmonary embolism Code(s): I26.99 - Other pulmonary embolism without acute cor pulmonale Status : Acute - Plan Ms. Fontenot is a 57-year-old female who presented to the emergency department with shortness of breath and chest pain and was found to have bilateral pulmonary embolisms and lower extremity DVTs. She also reported a 10 pound recent weight loss. Plan: 1. Bilateral PE and lower extremity DVTs. Patient currently on a heparin drip. Hypercoagulable workup pending. Prothrombin mutation, factor V Leiden, antiphospholipid antibodies and MARC screening are pending. 2. Possible lytic lesion at T12. Bone scan showed focal uptake at T12, neoplasm being a consideration. MRI thoracic showed: focal abnormality at the T12-L1 level with mild invagination of the superior endplate of L1 with surrounding edema and enhancement. The findings are of concern for discitis however a compression fracture could have a similar appearance. Patient was seen by orthopedics. They are concerned for possible diskitis and recommended a biopsy by IR. Again given her smoking history, multiple blood clots and unintentional weight loss they to agree that malignancy remains a differential. 3. Continues on heparin drip. I have held Coumadin for biopsy by IR. 4. Continue pain and supportive care. - Attending Statement The exam, history, and the medical decision-making described in the above note were completed with the assistance of the mid-level provider. I reviewed and agree with the findings presented. I attest that I had a [id number] encounter with the patient on the same day, and personally performed and documented my assessment and findings in the medical record. Patient still has back pain. She denies any bleeding. She has no chest pain. She has no significant shortness of breath. Orthopedic surgery has recommended biopsy of the T12 lesion to rule out discitis. We will hold her Coumadin for now.
[2018-07-03] MEDS: oxyCODONE/Acetaminophen 10/325 Tablet PO PRN ×2 (16:33→21:09)
[2018-07-03 17:52] LABS: Dil Russell Viper Venom Conf ( ND (NEGATIVE); Dil Russell Viper Venom Time M ND (CORRECTED); Homocysteine (Cardiovascular) 10.5 umol/L (<10.4); Lupus Anticoagulant PTT Screen 61 seconds (< OR = 40)
[2018-07-03 19:01] LABS: Factor V Leiden Mutation Negative (Negative)
[2018-07-03] MEDS: Naproxen 250 MG Tablet PO SCH (21:09)
[2018-07-04] MEDS: oxyCODONE/Acetaminophen 10/325 Tablet PO PRN ×6 (01:25→22:35)
[2018-07-04] MEDS: Budesonide-Formoterol 80/4.5 MCG 6.9 GM Inhaler INH SCH ×2 (01:27→08:36)
[2018-07-04] MEDS: Heparin Drip 25,000 UNIT/250 ML BAG IV.CONT PRN ×2 (01:28→23:22)
[2018-07-04 07:08] LABS: Activated Partial Thrombo Time 47.3 sec (24.3-30.1); INR 1.4 Ratio; Prothrombin Time 14.5 sec (9.8-11.6)
[2018-07-04] MEDS: Lidocaine 5% Patch T-DERMAL SCH (08:33)
[2018-07-04] MEDS: Potassium Chloride 10 MEQ ER Capsule PO SCH (08:33)
[2018-07-04] MEDS: Naproxen 250 MG Tablet PO SCH ×2 (08:33→20:32)
[2018-07-04] MEDS: Calcitonin Salmon Nasal 200 UNITS/Actuation - (3.7 ML) NASAL SCH (08:34)
--- NOTE | 2018-07-04 10:07 | P.PNIM ---
Subjective Interval history: Biopsy planned for today. Coumadin held last night. INR is 1.4 this morning. Physical Exam Vital signs: Vital Signs 07/03/18 12:00 07/03/18 16:00 07/03/18 20:00 Temperature 97.4 F L 97.7 F 97.7 F Pulse Rate 88 78 86 Respiratory Rate 20 20 18 Blood Pressure 124/75 132/66 121/71 Pulse Oximetry 97 96 98 07/04/18 00:00 07/04/18 04:00 07/04/18 08:00 Temperature 98.1 F 97.4 F L 97.8 F Pulse Rate 69 68 61 Respiratory Rate 18 18 18 Blood Pressure 111/65 112/67 118/61 Pulse Oximetry 96 96 97 Intake & Output 07/03/18 07/04/18 07/04/18 18:59 06:59 18:59 Intake Total 1060 / 1060 1372 / 1372 Balance 1060 / 1060 1372 / 1372 Weight 45.8 kg Intake: IV 100 / 100 250 / 250 Heparin/D5W 25,000 U/250 mL 25, 250 / 250 000 unit In 250 ml @ Per Protocol IV.CONT TITRATE PRN Rx #:[id number] Rocephin Inj 1,000 MG In NS Inj 100 / 100 100 ML @ 200 mls/hr IV.SIG Q24H ARINA Rx#:[id number] Oral 960 / 960 1122 / 1122 Other: # Voids 6 3 Date of Last Bowel Movement 07/03/18 # Bowel Movements 1 Narrative: GENERAL: NAD, A&Ox3 HEAD: Normocephalic. NECK: Supple, trachea midline. No lymphadenopathy. EYES: No scleral icterus. No injection or drainage. CARDIOVASCULAR: Regular rate and rhythm without murmurs, gallops, or rubs. RESPIRATORY: Breath sounds equal bilaterally. No accessory muscle use. GASTROINTESTINAL: Abdomen soft, non-tender, nondistended. MUSCULOSKELETAL: No cyanosis, or edema. SKIN: Warm and dry. NEURO: No focal neurological deficits. - Urinary Catheter Management Female External Cath placed during this visit: no Results - Labs CBC & Chem 7: 07/02/18 06:12 07/02/18 06:12 Laboratory Results - last 24 hr 06/30/18 07/03/18 07/04/18 03:43 10:07 05:50 PT 14.5 H INR 1.4 APTT 44.3 H 47.3 H Thrombin Time ND Lupus Anticoagulant LA PTT Screen 61 H dRVVT Screen 36 LA dRVVT Confirm ND dRVVT Mix ND Hexagonal Phase Confirm Negative Factor V Leiden Mutat Negative Factor V Leiden Interp . Fact V Leiden Review By See below Homocysteine Cardiovas 10.5 H Beta-2-GPI IgG Ab <9 Beta-2-GPI IgA Ab <9 Beta-2-GPI IgM Ab 89 H Phosphatidylserine IgG Less than 10.0 Phosphatidylserine IgA Less than 20.0 Phosphatidylserine IgM Greater than 100.0 H Anti-Cardiolipin IgG Ab <9.4 Anti-Cardiolipin IgM Ab 60.8 H Prothrombin [id number] Mut - Procedures NONE Assessment and Plan - Plan 57 year-old admitted secondary to acute shortness of breath from a pulmonary embolism bilaterally. INR is 1.4 this morning. Coumadin on hold secondary to biopsy. Resume Coumadin after biopsy. Continue to monitor INR. Bilateral DVTs Bilateral pulmonary emboli Chest pain Hematology following Continue Coumadin Patient is currently on a heparin drip for bridging Continue pain treatments Nodular opacity Left lower lobe lung Three-month follow-up recommended Back pain Lesion at T12 Bone scan pending Orthophoric Continue Rocephin Biopsy planned Constipation Monitor for bowel movements Stool softeners and laxatives as needed Hypokalemia Replace and monitor as needed Tobacco Abuse Emphysema Cessation recommended Continue duo nebs Continue albuterol as needed Discharge Planning: Pending therapeutic INR 2.0 TO 3.0
[2018-07-04] MEDS: Morphine Inj 4 MG/ML Vial IV.PUSH PRN ×3 (12:25→20:32)
--- NOTE | 2018-07-04 14:03 | P.PNONC ---
Subjective Interval history: Afebrile. Patient sitting upright in bed eating lunch. She states that her pain is better controlled with as needed breakthrough pain medication. She was able to ambulate to the restroom without severe pain. Continues on heparin drip. Objective Vital Signs/Intake & Output: Vital Signs 07/03/18 16:00 07/03/18 20:00 07/04/18 00:00 Temperature 97.7 F 97.7 F 98.1 F Pulse Rate 78 86 69 Respiratory Rate 18 Blood Pressure 132/66 121/71 111/65 Pulse Oximetry 96 98 96 07/04/18 04:00 07/04/18 08:00 07/04/18 12:00 Temperature 97.4 F L 97.8 F 97.3 F L Pulse Rate 68 68 86 Respiratory Rate 18 Blood Pressure 112/67 118/61 117/64 Pulse Oximetry 96 97 95 Intake & Output 07/03/18 07/04/18 07/04/18 18:59 06:59 18:59 Intake Total 1060 / 1060 1372 / 1372 Balance 1060 / 1060 1372 / 1372 Weight 45.8 kg Intake: IV 100 / 100 250 / 250 Heparin/D5W 25,000 U/250 mL 25, 250 / 250 000 unit In 250 ml @ Per Protocol IV.CONT TITRATE PRN Rx #:[id number] Rocephin Inj 1,000 MG In NS Inj 100 / 100 100 ML @ 200 mls/hr IV.SIG Q24H ARINA Rx#:[id number] Oral 960 / 960 1122 / 1122 Other: # Voids 6 3 Date of Last Bowel Movement 07/03/18 # Bowel Movements 1 Result Diagrams: 07/02/18 06:12 07/02/18 06:12 Laboratory Results: Laboratory Results - last 24 hr 06/30/18 07/04/18 03:43 05:50 PT 14.5 H INR 1.4 APTT 47.3 H Thrombin Time ND Lupus Anticoagulant LA PTT Screen 61 H dRVVT Screen 36 LA dRVVT Confirm ND dRVVT Mix ND Hexagonal Phase Confirm Negative Factor V Leiden Mutat Negative Factor V Leiden Interp . Fact V Leiden Review By See below Homocysteine Cardiovas 10.5 H Beta-2-GPI IgG Ab <9 Beta-2-GPI IgA Ab <9 Beta-2-GPI IgM Ab 89 H Phosphatidylserine IgG Less than 10.0 Phosphatidylserine IgA Less than 20.0 Phosphatidylserine IgM Greater than 100.0 H Anti-Cardiolipin IgG Ab <9.4 Anti-Cardiolipin IgM Ab 60.8 H Prothrombin [id number] Mut Medications: Active Medications Generic Name Dose Route Start Last Admin Trade Name Freq PRN Reason Stop Dose Admin Budesonide/Formoterol Fumarate 2 puff 06/29/18 21:00 07/04/18 08:36 Symbicort 80/4.5 Mcg Inh INH 2 puff BID ARINA Administration Calcitonin [place] 1 sprays 07/01/18 09:00 07/04/18 08:34 Calcitonin [place] Nasal NASAL 1 sprays DAILY ARINA Administration Heparin Sodium/Dextrose 25,000 unit in 250 mls @ 0 mls/hr 06/29/18 09:58 01:28 Heparin/D5w 25,000 U/250 Ml IV.CONT 1,300 units/hr TITRATE PRN 13 mls/hr Per Protocol Administration Protocol Per Protocol Ceftriaxone Sodium 1,000 mg/ 100 mls @ 200 mls/hr 06/29/18 14:00 07/03/18 14: 21 Sodium Chloride IV.SIG Infused Q24H ARINA Infusion Lidocaine HCl 1 patch 06/29/18 10:00 07/04/18 08:33 Lidoderm 5% Patch.12 Hr T-DERMAL Not Given DAILY ARINA Morphine Sulfate 4 mg 07/04/18 10:08 07/04/18 12:25 Morphine Inj IV.PUSH 4 mg Q4H PRN Administration BREAKTHROUGH PAIN Naproxen 250 mg 07/03/18 21:00 07/04/18 08:33 Naprosyn PO 07/05/18 23:59 250 mg BID ARINA Administration Oxycodone/Acetaminophen 1 tab 07/03/18 13:59 07/04/18 10:00 Percocet 10/325 Mg PO 1 tab Q4H PRN Administration Pain 7 to 10 Patch Removal 1 each 06/29/18 21:00 07/04/18 01:27 Remove Old Patch T-DERMAL 1 each HS ARINA Administration Potassium Chloride 10 meq 06/30/18 12:00 07/04/18 08:33 Kcl PO 10 meq DAILY ARINA Administration Warfarin Sodium 6 mg 06/30/18 16:00 07/02/18 15:03 Coumadin PO 6 mg DAILY@1600 ARINA Administration Objective Remarks: GENERAL: cachectic female patient, sitting in bed, in no acute distress. SKIN: Warm and dry. HEAD: Normocephalic. EYES: No scleral icterus. No injection or drainage. NECK: Supple, trachea midline. CARDIOVASCULAR: +S1/S2 without murmurs. RESPIRATORY: Breath sounds clear, equal bilaterally. Non-labored. GASTROINTESTINAL: Abdomen soft, non-tender, nondistended. +BS. EXTREMITIES: No cyanosis, or edema. MUSCULOSKELETAL: Adequate muscle tone. NEUROLOGICAL: No obvious focal deficit. Awake, alert, and oriented x3. PSYCHIATRIC: Appropriate mood and affect; insight and judgment normal. Assessment/Plan (1) Cachexia Code(s): R64 - Cachexia Status: Acute (2) Tobacco abuse Code(s): Z72.0 - Tobacco use Status: Acute (3) Weight loss Code(s): R63.4 - Abnormal weight loss Status: Acute (4) DVT (deep venous thrombosis) Code(s): I82.409 - Acute embolism and thrombosis of unspecified deep veins of unspecified lower extremity Status: Acute (5) Bilateral pulmonary embolism Code(s): I26.99 - Other pulmonary embolism without acute cor pulmonale Status : Acute - Plan Ms. Fontenot is a 57-year-old female who presented to the emergency department with shortness of breath and chest pain and was found to have bilateral pulmonary embolisms and lower extremity DVTs. She also reported a 10 pound recent weight loss. Plan: 1. Bilateral PE and lower extremity DVTs. Patient currently on a heparin drip. Prothrombin mutation negative, factor V Leyden mutation negative. LA PTT screen was high at 61, however patient was on heparin, therefore this could be a false positive. Her DRVVT screen was normal at 36. 2. Possible lytic lesion at T12, L1, MRI resulted as questionable diskitis versus compression fracture with malignancy not ruled out. Biopsy of T12, L1 ordered with interventional radiology. 3. Continues on heparin drip. I have held Coumadin for biopsy by IR. 4. Discussed with RN. 5. Continue supportive care. - Attending Statement The exam, history, and the medical decision-making described in the above note were completed with the assistance of the mid-level provider. I reviewed and agree with the findings presented. I attest that I had a [id number] encounter with the patient on the same day, and personally performed and documented my assessment and findings in the medical record. Patient still has back pain. Denies significant chest pain or shortness of breath. No evidence of bleeding. Coumadin was held and INR down to 1.4. Awaiting biopsy of the T12 lesion by radiology.
[2018-07-05] MEDS: Morphine Inj 4 MG/ML Vial IV.PUSH PRN ×4 (00:31→22:39)
[2018-07-05] MEDS: Budesonide-Formoterol 80/4.5 MCG 6.9 GM Inhaler INH SCH ×3 (01:24→20:02)
[2018-07-05] MEDS: oxyCODONE/Acetaminophen 10/325 Tablet PO PRN ×5 (02:27→19:57)
[2018-07-05 05:13] LABS: INR 1.1 Ratio; Prothrombin Time 11.3 sec (9.8-11.6)
--- NOTE | 2018-07-05 07:42 | P.PNONC ---
Subjective Interval history: Patient still has back pain. She is awaiting biopsy of the back lesion. She denies any chest pain or shortness of breath. She has no bleeding. Objective Vital Signs/Intake & Output: Vital Signs 07/04/18 08:00 07/04/18 12:00 07/04/18 16:00 Temperature 97.8 F 97.3 F L 98.4 F Pulse Rate 68 86 79 Respiratory Rate 18 18 20 Blood Pressure 118/61 117/64 101/66 Pulse Oximetry 97 95 94 L 07/04/18 17:54 07/04/18 20:00 07/05/18 00:00 Temperature 97.9 F 97.4 F L Pulse Rate 84 72 Respiratory Rate 18 16 Blood Pressure 124/59 L 107/62 Pulse Oximetry 95 96 95 07/05/18 04:00 Temperature 97.1 F L Pulse Rate 62 Respiratory Rate 18 Blood Pressure 101/59 L Pulse Oximetry 95 Intake & Output 07/04/18 07/05/18 07/05/18 18:59 06:59 18:59 Intake Total 580 / 580 863 / 863 Balance 580 / 580 863 / 863 Weight 44.5 kg Intake: IV 100 / 100 383 / 383 Heparin/D5W 25,000 U/250 mL 25, 383 / 383 000 unit In 250 ml @ Per Protocol IV.CONT TITRATE PRN Rx #:[id number] Rocephin Inj 1,000 MG In NS Inj 100 / 100 100 ML @ 200 mls/hr IV.SIG Q24H ARINA Rx#:[id number] Oral 480 / 480 480 / 480 Other: # Voids 2 Date of Last Bowel Movement 07/03/18 # Bowel Movements 2 0 Result Diagrams: 07/02/18 06:12 07/02/18 06:12 Laboratory Results: Laboratory Results - last 24 hr 07/05/18 04:25 PT 11.3 INR 1.1 Medications: Active Medications Generic Name Dose Route Start Last Admin Trade Name Freq PRN Reason Stop Dose Admin Budesonide/Formoterol Fumarate 2 puff 06/29/18 21:00 07/05/18 01:24 Symbicort 80/4.5 Mcg Inh INH 2 puff BID ARINA Administration Calcitonin [place] 1 sprays 07/01/18 09:00 07/04/18 08:34 Calcitonin [place] Nasal NASAL 1 sprays DAILY ARINA Administration Heparin Sodium/Dextrose 25,000 unit in 250 mls @ 0 mls/hr 06/29/18 09:58 06:48 Heparin/D5w 25,000 U/250 Ml IV.CONT 1,300 units/hr TITRATE PRN 13 mls/hr Per Protocol Titration Protocol Per Protocol Ceftriaxone Sodium 1,000 mg/ 100 mls @ 200 mls/hr 06/29/18 14:00 07/04/18 16: 37 Sodium Chloride IV.SIG Infused Q24H ARINA Infusion Lidocaine HCl 1 patch 06/29/18 10:00 07/04/18 08:33 Lidoderm 5% Patch.12 Hr T-DERMAL Not Given DAILY ARINA Morphine Sulfate 4 mg 07/04/18 10:08 07/05/18 04:34 Morphine Inj IV.PUSH 4 mg Q4H PRN Administration BREAKTHROUGH PAIN Naproxen 250 mg 07/03/18 21:00 07/04/18 20:32 Naprosyn PO 07/05/18 23:59 250 mg BID ARINA Administration Oxycodone/Acetaminophen 1 tab 07/03/18 13:59 07/05/18 06:25 Percocet 10/325 Mg PO 1 tab Q4H PRN Administration Pain 7 to 10 Patch Removal 1 each 06/29/18 21:00 07/05/18 01:24 Remove Old Patch T-DERMAL 1 each HS ARINA Administration Potassium Chloride 10 meq 06/30/18 12:00 07/04/18 08:33 Kcl PO 10 meq DAILY ARINA Administration Warfarin Sodium 6 mg 06/30/18 16:00 07/02/18 15:03 Coumadin PO 6 mg DAILY@1600 ARINA Administration Objective Remarks: GENERAL: Well-nourished, well-developed patient. Frail. SKIN: Warm and dry. HEAD: Normocephalic. EYES: No scleral icterus. No injection or drainage. NECK: Supple, trachea midline. No JVD or lymphadenopathy. LYMPHATIC: No adenopathy. CARDIOVASCULAR: Regular rate and rhythm without murmurs. RESPIRATORY: Breath sounds equal bilaterally anteriorly. No accessory muscle use. GASTROINTESTINAL: Abdomen soft, non-tender, nondistended. EXTREMITIES: No cyanosis, or edema. MUSCULOSKELETAL: Adequate muscle tone. NEUROLOGICAL: No obvious focal deficit. Awake, alert, and oriented x3. PSYCHIATRIC: Appropriate mood and affect; insight and judgment normal. Assessment/Plan (1) Cachexia Code(s): R64 - Cachexia Status: Acute (2) Tobacco abuse Code(s): Z72.0 - Tobacco use Status: Acute (3) Weight loss Code(s): R63.4 - Abnormal weight loss Status: Acute (4) DVT (deep venous thrombosis) Code(s): I82.409 - Acute embolism and thrombosis of unspecified deep veins of unspecified lower extremity Status: Acute (5) Bilateral pulmonary embolism Code(s): I26.99 - Other pulmonary embolism without acute cor pulmonale Status : Acute - Plan Ms. Fontenot is a 57-year-old female who presented to the emergency department with shortness of breath and chest pain and was found to have bilateral pulmonary embolisms and lower extremity DVTs. She also reported a 10 pound recent weight loss. Plan: 1. Bilateral PE and lower extremity DVTs. Patient currently on a heparin drip. Prothrombin mutation negative, factor V Leyden mutation negative. Positive antiphospholipid antibody. Coumadin is on hold at this time pending biopsy. 2. Possible lytic lesion at T12, L1, MRI resulted as questionable diskitis versus compression fracture with malignancy not ruled out. Biopsy of T12, L1 ordered with interventional radiology. 3. Continues on heparin drip. Patient can restart Coumadin if no other procedure planned after the biopsy 4. Continue supportive care.
[2018-07-05] MEDS: Lidocaine 5% Patch T-DERMAL SCH (09:05)
[2018-07-05] MEDS: Calcitonin Salmon Nasal 200 UNITS/Actuation - (3.7 ML) NASAL SCH (09:07)
[2018-07-05] MEDS: Naproxen 250 MG Tablet PO SCH ×2 (09:09→19:59)
[2018-07-05] MEDS: Potassium Chloride 10 MEQ ER Capsule PO SCH (09:09)
--- NOTE | 2018-07-05 10:21 | P.PNIM ---
Subjective Interval history: Biopsy pending for today. Coumadin still on hold. No new complaints from the patient. Physical Exam Vital signs: Vital Signs 07/04/18 12:00 07/04/18 16:00 07/04/18 17:54 Temperature 97.3 F L 98.4 F Pulse Rate 86 79 Respiratory Rate 18 20 Blood Pressure 117/64 101/66 Pulse Oximetry 95 94 L 95 07/04/18 20:00 07/05/18 00:00 07/05/18 04:00 Temperature 97.9 F 97.4 F L 97.1 F L Pulse Rate 84 72 62 Respiratory Rate 18 16 18 Blood Pressure 124/59 L 107/62 101/59 L Pulse Oximetry 96 95 95 07/05/18 08:00 Temperature 97.4 F L Pulse Rate 64 Respiratory Rate 18 Blood Pressure 95/56 L Pulse Oximetry 96 Intake & Output 07/04/18 07/05/18 07/05/18 18:59 06:59 18:59 Intake Total 580 / 580 863 / 863 Balance 580 / 580 863 / 863 Weight 44.5 kg Intake: IV 100 / 100 383 / 383 Heparin/D5W 25,000 U/250 mL 25, 383 / 383 000 unit In 250 ml @ Per Protocol IV.CONT TITRATE PRN Rx #:[id number] Rocephin Inj 1,000 MG In NS Inj 100 / 100 100 ML @ 200 mls/hr IV.SIG Q24H ARINA Rx#:[id number] Oral 480 / 480 480 / 480 Other: # Voids 2 Date of Last Bowel Movement 07/03/18 # Bowel Movements 2 0 Narrative: GENERAL: NAD, A&Ox3 HEAD: Normocephalic. NECK: Supple, trachea midline. No lymphadenopathy. EYES: No scleral icterus. No injection or drainage. CARDIOVASCULAR: Regular rate and rhythm without murmurs, gallops, or rubs. RESPIRATORY: Breath sounds equal bilaterally. No accessory muscle use. GASTROINTESTINAL: Abdomen soft, non-tender, nondistended. MUSCULOSKELETAL: No cyanosis, or edema. SKIN: Warm and dry. NEURO: No focal neurological deficits. - Urinary Catheter Management Female External Cath placed during this visit: no Results - Labs CBC & Chem 7: 07/02/18 06:12 07/02/18 06:12 Laboratory Results - last 24 hr 07/05/18 04:25 PT 11.3 INR 1.1 - Procedures NONE Assessment and Plan - Plan 57 year-old admitted secondary to acute shortness of breath from a pulmonary embolism bilaterally. INR is 1.1 this morning. Coumadin on hold secondary to biopsy. Coumadin will be resumed after biopsy completed. Continue to monitor INR. Bilateral DVTs Bilateral pulmonary emboli Chest pain Hematology following Continue Coumadin Patient is currently on a heparin drip for bridging Continue pain treatments Nodular opacity Left lower lobe lung Three-month follow-up recommended Back pain Lesion at T12 Bone scan pending Orthophoric Continue Rocephin Biopsy planned Constipation Monitor for bowel movements Stool softeners and laxatives as needed Hypokalemia Replace and monitor as needed Tobacco Abuse Emphysema Cessation recommended Continue duo nebs Continue albuterol as needed Discharge Planning: Pending therapeutic INR 2.0 TO 3.0
[2018-07-05] MEDS ORDERED: fentaNYL Citrate Inj 250 MCG/5 ML Ampul ONE (13:26)
--- NOTE | 2018-07-05 14:07 | P.RAD ---
Post Procedure Progress Note - Pre Procedure Diagnosis (1) Back pain - Post Procedure Diagnosis (1) Back pain - Procedure Information Procedure Date: 07/05/18 Supervising Radiologist: Ye Stewart MD Estimated blood loss (mL): 0 Anesthesia: Local, Conscious Sedation - Plan of Activity Patient to Unit: ROPU Patient Condition: Fair Additional Comments: Disc aspiration at T12/L1 completed. Samples sent to pathology Full dictated report to follow See PACS Report for procedural detail/treatment.
--- NOTE | 2018-07-05 14:52 | P.RAD ---
Post Procedure Progress Note - Pre Procedure Diagnosis (1) Acute renal failure (ARF) - Post Procedure Diagnosis (1) Acute renal failure (ARF) - Procedure Information Procedure Date: 07/05/18 Supervising Radiologist: Ye Stewart MD Estimated blood loss (mL): 3 Anesthesia: Local, Conscious Sedation - Plan of Activity Patient to Unit: ROPU Patient Condition: Fair Additional Comments: Perm cath placed without difficulty. catheter in good position OK for use Full report to follow See PACS Report for procedural detail/treatment.
[2018-07-06] MEDS: oxyCODONE/Acetaminophen 10/325 Tablet PO PRN ×6 (01:25→22:19)
[2018-07-06] MEDS: Morphine Inj 4 MG/ML Vial IV.PUSH PRN ×5 (02:43→20:28)
[2018-07-06 07:16] LABS: INR 1.1 Ratio; Prothrombin Time 11.3 sec (9.8-11.6)
[2018-07-06 07:36] LABS: Alanine Aminotransferase 20 U/L (10-53); Albumin 2.6 g/dL (3.4-5.0); Anion Gap 7 meq/L (5-15); Aspartate Aminotransferase 21 U/L (15-37); Blood Urea Nitrogen 29 mg/dL (7-18); Calcium 8.2 mg/dL (8.5-10.1); Carbon Dioxide 26.2 meq/L (21.0-32.0); Chloride 105 meq/L (98-107); Glomerular Filtration Rate 76 mL/min (>89); Glucose,Random 99 mg/dL (74-106); Potassium 4.2 meq/L (3.5-5.1); Sodium 138 meq/L (136-145)
[2018-07-06 07:38] LABS: Alkaline Phosphatase 86 U/L (45-117); Total Protein 7.3 g/dL (6.4-8.2)
[2018-07-06 07:43] LABS: Activated Partial Thrombo Time 41.5 sec (24.3-30.1)
[2018-07-06] MEDS: Potassium Chloride 10 MEQ ER Capsule PO SCH (09:04)
[2018-07-06] MEDS: Calcitonin Salmon Nasal 200 UNITS/Actuation - (3.7 ML) NASAL SCH (09:04)
[2018-07-06] MEDS: Budesonide-Formoterol 80/4.5 MCG 6.9 GM Inhaler INH SCH ×2 (09:05→20:32)
[2018-07-06] MEDS: Lidocaine 5% Patch T-DERMAL SCH (09:05)
[2018-07-06] MEDS: Heparin Drip 25,000 UNIT/250 ML BAG IV.CONT PRN (09:09)
--- NOTE | 2018-07-06 10:55 | P.PNIM ---
Subjective Interval history: INR is 1.1 today. Patient complains of cramping. We discussed usage of Flexeril. Physical Exam Vital signs: Vital Signs 07/05/18 12:00 07/05/18 14:10 07/05/18 14:25 Temperature 97.5 F L 97.9 F Pulse Rate 71 65 72 Respiratory Rate 18 16 20 Blood Pressure 110/65 99/60 L 98/62 L Pulse Oximetry 97 97 97 07/05/18 14:40 07/05/18 15:10 07/05/18 16:00 Temperature 97.8 F Pulse Rate 66 77 79 Respiratory Rate 20 20 18 Blood Pressure 103/60 114/68 122/66 Pulse Oximetry 97 97 95 07/05/18 20:00 07/06/18 00:00 07/06/18 04:00 Temperature 97.7 F 97.8 F 98.0 F Pulse Rate 78 72 68 Respiratory Rate 16 18 18 Blood Pressure 116/70 104/65 100/51 L Pulse Oximetry 95 93 L 94 L 07/06/18 08:00 Temperature 98.0 F Pulse Rate 96 H Respiratory Rate 20 Blood Pressure 96/53 L Pulse Oximetry 95 Intake & Output 07/05/18 07/06/18 07/06/18 18:59 06:59 18:59 Intake Total 580 / 580 567 / 567 30 / 30 Output Total 1800 / 1800 4 / 4 Balance -1220 / -1220 563 / 563 30 / 30 Weight 45.1 kg Intake: IV 100 / 100 87 / 87 30 / 30 Heparin/D5W 25,000 U/250 mL 25, 87 / 87 30 / 30 000 unit In 250 ml @ Per Protocol IV.CONT TITRATE PRN Rx #:[id number] Rocephin Inj 1,000 MG In NS Inj 100 / 100 100 ML @ 200 mls/hr IV.SIG Q24H ARINA Rx#:[id number] Oral 480 / 480 480 / 480 Output: Urine 800 / 800 4 / 4 Urine Amount (Catheter) 1000 / 1000 Female External 1000 / 1000 Other: # Voids 3 Date of Last Bowel Movement 07/03/18 # Bowel Movements 1 1 Narrative: GENERAL: NAD, A&Ox3 HEAD: Normocephalic. NECK: Supple, trachea midline. No lymphadenopathy. EYES: No scleral icterus. No injection or drainage. CARDIOVASCULAR: Regular rate and rhythm without murmurs, gallops, or rubs. RESPIRATORY: Breath sounds equal bilaterally. No accessory muscle use. GASTROINTESTINAL: Abdomen soft, non-tender, nondistended. MUSCULOSKELETAL: No cyanosis, or edema. SKIN: Warm and dry. NEURO: No focal neurological deficits. - Urinary Catheter Management Female External Cath placed during this visit: no Results - Labs CBC & Chem 7: 07/02/18 06:12 07/06/18 06:45 Laboratory Results - last 24 hr 07/06/18 07/06/18 06:45 06:45 PT 11.3 INR 1.1 APTT 41.5 H Sodium 138 Potassium 4.2 Chloride 105 Carbon Dioxide 26.2 Anion Gap 7 BUN 29 H Creatinine 0.78 Estimated GFR 76 L Random Glucose 99 Calcium 8.2 L Total Bilirubin 0.2 AST 21 ALT 20 Alkaline Phosphatase 86 Total Protein 7.3 Albumin 2.6 L Microbiology 07/05/18 13:51 Fluid - Other Gram Stain - Final - Procedures NONE Assessment and Plan - Plan 57 year-old admitted secondary to acute shortness of breath from a pulmonary embolism bilaterally. INR is 1.1 this morning. Coumadin has been resumed as of 07/05/2018. Flexeril added for back pain, muscle spasm component. Bilateral DVTs Bilateral pulmonary emboli Chest pain Hematology following Continue Coumadin Patient is currently on a heparin drip for bridging Continue pain treatments Nodular opacity Left lower lobe lung Three-month follow-up recommended Back pain Lesion at T12 Bone scan pending Orthophoric Continue Rocephin Biopsy planned Constipation Monitor for bowel movements Stool softeners and laxatives as needed Hypokalemia Replace and monitor as needed Tobacco Abuse Emphysema Cessation recommended Continue duo nebs Continue albuterol as needed Discharge Planning: Pending therapeutic INR 2.0 TO 3.0
[2018-07-07] MEDS: Morphine Inj 4 MG/ML Vial IV.PUSH PRN ×6 (00:26→22:35)
[2018-07-07] MEDS: oxyCODONE/Acetaminophen 10/325 Tablet PO PRN ×5 (02:24→20:13)
[2018-07-07] MEDS: Heparin Drip 25,000 UNIT/250 ML BAG IV.CONT PRN (04:51)
[2018-07-07 06:15] LABS: Baso # (Auto) 0.1 th/mm3 (0.0-0.2); Baso % (Auto) 1.1 % (0.0-2.0); Eos # (Auto) 0.3 th/mm3 (0.0-0.4); Eos % (Auto) 5.2 % (0.0-4.0); Hemoglobin 10.8 gm/dL (11.6-15.3); Lymph # (Auto) 1.3 th/mm3 (1.0-4.8); Lymph % (Auto) 21.3 % (9.0-44.0); Mean Corpuscular HGB Conc 33.7 % (32.0-36.0); Mean Corpuscular Hemoglobin 28.9 pg (27.0-34.0); Mean Corpuscular Volume 85.7 fL (80.0-100.0); Mean Platelet Volume 7.4 fL (7.0-11.0); Mono # (Auto) 0.3 th/mm3 (0.0-0.9); Mono % (Auto) 5.3 % (0.0-8.0); Neut # (Auto) 4.2 th/mm3 (1.8-7.7); Neut % (Auto) 67.1 % (16.0-70.0); Platelet Count 273 th/mm3 (150-450); Red Blood Count 3.74 mil/mm3 (4.00-5.30); Red Cell Distribution Width 14.6 % (11.6-17.2); White Blood Count 6.3 th/mm3 (4.0-11.0)
[2018-07-07 06:23] LABS: INR 1.2 Ratio; Prothrombin Time 12.6 sec (9.8-11.6)
[2018-07-07 06:37] LABS: Alanine Aminotransferase 22 U/L (10-53); Albumin 2.7 g/dL (3.4-5.0); Anion Gap 6 meq/L (5-15); Aspartate Aminotransferase 21 U/L (15-37); Blood Urea Nitrogen 23 mg/dL (7-18); Calcium 8.4 mg/dL (8.5-10.1); Carbon Dioxide 24.8 meq/L (21.0-32.0); Chloride 107 meq/L (98-107); Glomerular Filtration Rate Greater Than 89 mL/min (>89); Glucose,Random 86 mg/dL (74-106); Potassium 4.5 meq/L (3.5-5.1); Sodium 138 meq/L (136-145)
[2018-07-07 06:41] LABS: Alkaline Phosphatase 84 U/L (45-117); Total Protein 7.7 g/dL (6.4-8.2)
[2018-07-07] MEDS: Calcitonin Salmon Nasal 200 UNITS/Actuation - (3.7 ML) NASAL SCH (08:17)
[2018-07-07] MEDS: Potassium Chloride 10 MEQ ER Capsule PO SCH (08:18)
[2018-07-07] MEDS: Budesonide-Formoterol 80/4.5 MCG 6.9 GM Inhaler INH SCH ×2 (08:18→20:13)
[2018-07-07] MEDS: Lidocaine 5% Patch T-DERMAL SCH (08:18)
--- NOTE | 2018-07-07 11:45 | P.PNIM ---
Subjective Interval history: INR has increased to 1.2 today. Goal is 2.0 to 3.0. No new complaints from the patient. Physical Exam Vital signs: Vital Signs 07/06/18 12:00 07/06/18 16:00 07/06/18 20:00 Temperature 97.8 F 97.9 F 97.5 F L Pulse Rate 72 69 73 Respiratory Rate 18 20 18 Blood Pressure 108/56 L 128/59 L 107/59 L Pulse Oximetry 95 94 L 96 07/07/18 00:00 07/07/18 02:54 07/07/18 04:00 Temperature 98.1 F 97.6 F Pulse Rate 78 67 Respiratory Rate 18 18 18 Blood Pressure 107/58 L 111/60 Pulse Oximetry 94 L 97 07/07/18 08:00 Temperature 97.9 F Pulse Rate 69 Respiratory Rate 18 Blood Pressure 114/61 Pulse Oximetry 95 Intake & Output 07/06/18 07/07/18 07/07/18 18:59 06:59 18:59 Intake Total 690 / 690 750 / 750 Output Total 1100 / 1100 Balance 690 / 690 -350 / -350 Intake: IV 130 / 130 30 / 30 Heparin/D5W 25,000 U/250 mL 25, 30 / 30 30 / 30 000 unit In 250 ml @ Per Protocol IV.CONT TITRATE PRN Rx #:[id number] Rocephin Inj 1,000 MG In NS Inj 100 / 100 100 ML @ 200 mls/hr IV.SIG Q24H ARINA Rx#:[id number] Oral 560 / 560 720 / 720 Output: Urine 1100 / 1100 Other: # Voids 4 Narrative: GENERAL: NAD, A&Ox3 HEAD: Normocephalic. NECK: Supple, trachea midline. No lymphadenopathy. EYES: No scleral icterus. No injection or drainage. CARDIOVASCULAR: Regular rate and rhythm without murmurs, gallops, or rubs. RESPIRATORY: Breath sounds equal bilaterally. No accessory muscle use. GASTROINTESTINAL: Abdomen soft, non-tender, nondistended. MUSCULOSKELETAL: No cyanosis, or edema. SKIN: Warm and dry. NEURO: No focal neurological deficits. - Urinary Catheter Management Female External Cath placed during this visit: no Results - Labs CBC & Chem 7: 07/07/18 05:25 07/07/18 05:25 Laboratory Results - last 24 hr 07/07/18 07/07/1818 05:25 05:25 05:25 WBC 6.3 RBC 3.74 L Hgb 10.8 L Hct 32.0 L MCV 85.7 MCH 28.9 MCHC 33.7 RDW 14.6 Plt Count 273 MPV 7.4 Neut % (Auto) 67.1 Lymph % (Auto) 21.3 [place] % (Auto) 5.3 Eos % (Auto) 5.2 H Baso % (Auto) 1.1 Neut # (Auto) 4.2 Lymph # (Auto) 1.3 [place] # (Auto) 0.3 Eos # (Auto) 0.3 Baso # (Auto) 0.1 WBC Differential . Differential Comment Auto diff final PT 12.6 H INR 1.2 APTT Sodium 138 Potassium 4.5 Chloride 107 Carbon Dioxide 24.8 Anion Gap 6 BUN 23 H Creatinine 0.67 Estimated GFR Greater than 89 Random Glucose 86 Calcium 8.4 L Total Bilirubin 0.2 AST 21 ALT 22 Alkaline Phosphatase 84 Total Protein 7.7 Albumin 2.7 L 07/07/18 05:25 WBC RBC Hgb Hct MCV MCH MCHC RDW Plt Count MPV Neut % (Auto) Lymph % (Auto) [place] % (Auto) Eos % (Auto) Baso % (Auto) Neut # (Auto) Lymph # (Auto) [place] # (Auto) Eos # (Auto) Baso # (Auto) WBC Differential Differential Comment PT INR APTT 51.2 H D Sodium Potassium Chloride Carbon Dioxide Anion Gap BUN Creatinine Estimated GFR Random Glucose Calcium Total Bilirubin AST ALT Alkaline Phosphatase Total Protein Albumin Microbiology 07/05/18 13:51 Fluid - Other Gram Stain - Final 07/05/18 13:51 Fluid - Other Wound Culture - Preliminary No growth in 48 hours 07/05/18 13:51 Abscess - Other Acid Fast Bacilli Smear - Final No acid fast bacilli seen 07/05/18 13:51 Abscess - Other Fungal Smear - Final No fungal elements seen - Procedures NONE Assessment and Plan - Plan 57 year-old admitted secondary to acute shortness of breath from a pulmonary embolism bilaterally. INR is 1.2 this morning. Coumadin has been resumed as of 07/05/2018. Continue to monitor INR. Labs ordered for further monitoring. Bilateral DVTs Bilateral pulmonary emboli Chest pain Hematology following Continue Coumadin Patient is currently on a heparin drip for bridging Continue pain treatments Nodular opacity Left lower lobe lung Three-month follow-up recommended Back pain Lesion at T12 Bone scan pending Orthophoric Continue Rocephin Biopsy planned Constipation Monitor for bowel movements Stool softeners and laxatives as needed Hypokalemia Replace and monitor as needed Tobacco Abuse Emphysema Cessation recommended Continue duo nebs Continue albuterol as needed Discharge Planning: Pending therapeutic INR 2.0 TO 3.0
[2018-07-08] MEDS: oxyCODONE/Acetaminophen 10/325 Tablet PO PRN ×6 (00:16→21:00)
[2018-07-08] MEDS: Morphine Inj 4 MG/ML Vial IV.PUSH PRN ×7 (02:26→22:36)
[2018-07-08] MEDS: Heparin Drip 25,000 UNIT/250 ML BAG IV.CONT PRN ×2 (02:29→21:15)
[2018-07-08 08:00] LABS: Activated Partial Thrombo Time 60.7 sec (24.3-30.1); INR 1.3 Ratio; Prothrombin Time 13.6 sec (9.8-11.6)
[2018-07-08] MEDS: Potassium Chloride 10 MEQ ER Capsule PO SCH (08:43)
[2018-07-08] MEDS: Budesonide-Formoterol 80/4.5 MCG 6.9 GM Inhaler INH SCH ×2 (08:46→21:01)
[2018-07-08] MEDS: Calcitonin Salmon Nasal 200 UNITS/Actuation - (3.7 ML) NASAL SCH (08:46)
[2018-07-08] MEDS: Lidocaine 5% Patch T-DERMAL SCH (08:47)
--- NOTE | 2018-07-08 10:56 | IR ---
EXAM DATE: 07/05/2018 2:36 PM EDT AGE/SEX: 57 years / Female INDICATIONS: Patient with long history of tobacco abuse. Presented to ER with chest pain and SOB. CLINICAL DATA: This is the patient's initial encounter. Patient reports that signs and symptoms have been present for 4 - 6 days and indicates a pain score of 3/10. MEDICAL/SURGICAL HISTORY: . smoker,ectopic salpingectomy COMPARISON: No prior exams available for comparison. FLUORO TIME (min): 3.5 IMAGE SERIES: 3 SEDATION TIME (min): 30 MEDICATION(S): 2.5 mg midazolam (Versed) IV 125 mcg fentanyl (Sublimaze) IV DEVICE(s): 20 gauge SPINAL needle SPECIMEN(S): Core specimen(s) obtained and submitted to laboratory for pathologic evaluation. PROCEDURE: 1. Fluoroscopically guided needle biopsy. 2. Conscious sedation with continuous EKG and Oximetry monitoring. The risks, benefits and alternatives to the procedure were explained and verbal and written consent w as obtained. The site was prepped in sterile fashion. Full sterile technique was used, including cap, mask, steri le gloves and gown and a large sterile sheet. Hand hygiene and 2% chlorhexidine and/or betadine/alco hol prep was utilized per protocol for cutaneous antisepsis. The skin and subcutaneous tissues were infiltrated with local anesthetic solution. With fluoroscopic guidance a 22-gauge needle was advanced in an oblique plane into the discs space at the T12-L1 level. Multiple passes were made into the disc. Samples were obtained and sent to patholo for culture and sensitivity. Conscious sedation was performed with the prescribed dosages and duration as above in the presence of an independent trained radiology nurse to assist in the monitoring of the patient. EKG and oximetry remained stable throughout the procedure. CONCLUSION: 1. Uncomplicated needle aspiration biopsy of the T12/L1 level as above. Electronically signed by: Ye Stewart MD 07/08/2018 10:55 AM EDT
--- NOTE | 2018-07-08 11:01 | P.PNIM ---
Subjective Interval history: Patient complains of back pain today. INR is currently 1.3. Slow upward trend. Physical Exam Vital signs: Vital Signs 07/07/18 12:00 07/07/18 16:00 07/07/18 20:00 Temperature 98.2 F 97.6 F 98 F Pulse Rate 82 81 84 Respiratory Rate 18 18 18 Blood Pressure 110/67 112/68 107/64 Pulse Oximetry 96 97 94 L 07/08/18 00:00 07/08/18 04:00 07/08/18 05:20 Temperature 97.9 F 97.6 F Pulse Rate 75 82 Respiratory Rate 18 20 20 Blood Pressure 116/71 101/62 Pulse Oximetry 99 94 L 07/08/18 08:00 07/08/18 10:48 Temperature 97.8 F Pulse Rate 78 80 Respiratory Rate 16 18 Blood Pressure 122/72 114/68 Pulse Oximetry 94 L Intake & Output 07/07/18 07/08/18 07/08/18 18:59 06:59 18:59 Intake Total 1540 / 1540 802 / 802 Balance 1540 / 1540 802 / 802 Intake: IV 100 / 100 82 / 82 Heparin/D5W 25,000 U/250 mL 25, 82 / 82 000 unit In 250 ml @ Per Protocol IV.CONT TITRATE PRN Rx #:[id number] Rocephin Inj 1,000 MG In NS Inj 100 / 100 100 ML @ 200 mls/hr IV.SIG Q24H ARINA Rx#:[id number] Oral 1440 / 1440 720 / 720 Other: # Voids 6 5 # Bowel Movements 1 Narrative: GENERAL: NAD, A&Ox3 HEAD: Normocephalic. NECK: Supple, trachea midline. No lymphadenopathy. EYES: No scleral icterus. No injection or drainage. CARDIOVASCULAR: Regular rate and rhythm without murmurs, gallops, or rubs. RESPIRATORY: Breath sounds equal bilaterally. No accessory muscle use. GASTROINTESTINAL: Abdomen soft, non-tender, nondistended. MUSCULOSKELETAL: No cyanosis, or edema. SKIN: Warm and dry. NEURO: No focal neurological deficits. - Urinary Catheter Management Female External Cath placed during this visit: no Results - Labs CBC & Chem 7: 07/07/18 05:25 07/07/18 05:25 Laboratory Results - last 24 hr 07/08/18 07:00 PT 13.6 H INR 1.3 APTT 60.7 H Microbiology 07/05/18 13:51 Fluid - Other Gram Stain - Final 07/05/18 13:51 Fluid - Other Wound Culture - Preliminary No growth in 48 hours - Imaging Impressions Needle Biopsy/Aspiration X-Ray 07/05/18 00:00 CONCLUSION: 1. Uncomplicated needle aspiration biopsy of the T12/L1 level as above. - Procedures NONE Assessment and Plan - Plan 57 year-old admitted secondary to acute shortness of breath from a pulmonary embolism bilaterally. INR is 1.3 this morning. Coumadin has been resumed as of 07/05/2018. Increase Coumadin to 7.5 mg daily today. Continue to monitor INR. Labs ordered for further monitoring. Cultures from spine biopsy are negative 2 days. Monitor cultures further. Bilateral DVTs Bilateral pulmonary emboli Chest pain Hematology following Continue Coumadin Patient is currently on a heparin drip for bridging Continue pain treatments Nodular opacity Left lower lobe lung Three-month follow-up recommended Back pain Lesion at T12 Status post bone biopsy Follow results Continue to monitor cultures Orthophoric Continue Rocephin Biopsy planned Constipation Monitor for bowel movements Stool softeners and laxatives as needed Hypokalemia Replace and monitor as needed Tobacco Abuse Emphysema Cessation recommended Continue duo nebs Continue albuterol as needed Discharge Planning: Pending therapeutic INR 2.0 TO 3.0
[2018-07-08] MEDS ORDERED: Morphine Sulfate 15 MG SR Tablet PO ONE (12:00)
--- NOTE | 2018-07-08 12:27 | P.PNONC ---
Subjective Interval history: Afebrile. Pt reports continued lower back pain. Currently with minimal relief with current medication regimen. Per pt the attending has made medication changes today, she is hopeful that this will help. No other complaints at this time. Denies any bleeding. Continues on heparin gtt. Objective Vital Signs/Intake & Output: Vital Signs 07/07/18 16:00 07/07/18 20:00 07/08/18 00:00 Temperature 97.6 F 98 F 97.9 F Pulse Rate 81 84 75 Respiratory Rate 18 18 18 Blood Pressure 112/68 107/64 116/71 Pulse Oximetry 97 94 L 99 07/08/18 04:00 07/08/18 05:20 07/08/18 08:00 Temperature 97.6 F 97.8 F Pulse Rate 82 78 Respiratory Rate 20 20 16 Blood Pressure 101/62 122/72 Pulse Oximetry 94 L 94 L 07/08/18 10:48 Temperature Pulse Rate 80 Respiratory Rate 18 Blood Pressure 114/68 Pulse Oximetry Intake & Output 07/07/18 07/08/18 07/08/18 18:59 06:59 18:59 Intake Total 1540 / 1540 802 / 802 Balance 1540 / 1540 802 / 802 Intake: IV 100 / 100 82 / 82 Heparin/D5W 25,000 U/250 mL 25, 82 / 82 000 unit In 250 ml @ Per Protocol IV.CONT TITRATE PRN Rx #:[id number] Rocephin Inj 1,000 MG In NS Inj 100 / 100 100 ML @ 200 mls/hr IV.SIG Q24H ARINA Rx#:[id number] Oral 1440 / 1440 720 / 720 Other: # Voids 6 5 # Bowel Movements 1 Result Diagrams: 07/07/18 05:25 07/07/18 05:25 Laboratory Results: Laboratory Results - last 24 hr 07/08/18 07:00 PT 13.6 H INR 1.3 APTT 60.7 H Culture Results: Microbiology 07/05/18 13:51 Gram Stain - Final Fluid - Other Wound Culture - Final No growth in 72 hours (aerobically and anaerobically) 07/05/18 13:51 Acid Fast Bacilli Smear - Final Abscess - Other No acid fast bacilli seen 07/05/18 13:51 Fungal Smear - Final Abscess - Other No fungal elements seen Imaging Studies: Impressions Needle Biopsy/Aspiration X-Ray 07/05/18 00:00 CONCLUSION: 1. Uncomplicated needle aspiration biopsy of the T12/L1 level as above. Medications: Active Medications Generic Name Dose Route Start Last Admin Trade Name Freq PRN Reason Stop Dose Admin Budesonide/Formoterol Fumarate 2 puff 06/29/18 21:00 07/08/18 08:46 Symbicort 80/4.5 Mcg Inh INH 2 puff BID ARINA Administration Calcitonin [place] 1 sprays 07/01/18 09:00 07/08/18 08:46 Calcitonin [place] Nasal NASAL 1 sprays DAILY ARINA Administration Cyclobenzaprine HCl 10 mg 07/06/18 14:00 07/08/18 06:27 Flexeril PO 10 mg Q8HR ARINA Administration Heparin Sodium/Dextrose 25,000 unit in 250 mls @ 0 mls/hr 06/29/18 09:58 06:33 Heparin/D5w 25,000 U/250 Ml IV.CONT 1,300 units/hr TITRATE PRN 13 mls/hr Per Protocol Titration Protocol Per Protocol Ceftriaxone Sodium 1,000 mg/ 100 mls @ 200 mls/hr 06/29/18 14:00 07/07/18 14: 56 Sodium Chloride IV.SIG Infused Q24H ARINA Infusion Lidocaine HCl 1 patch 06/29/18 10:00 07/08/18 08:47 Lidoderm 5% Patch.12 Hr T-DERMAL Not Given DAILY ARINA Morphine Sulfate 4 mg 07/04/18 10:08 07/08/18 10:46 Morphine Inj IV.PUSH 4 mg Q4H PRN Administration BREAKTHROUGH PAIN Oxycodone/Acetaminophen 1 tab 07/03/18 13:59 07/08/18 08:44 Percocet 10/325 Mg PO 1 tab Q4H PRN Administration Pain 7 to 10 Patch Removal 1 each 06/29/18 21:00 07/07/18 20:14 Remove Old Patch T-DERMAL Not Given HS ARINA Potassium Chloride 10 meq 06/30/18 12:00 07/08/18 08:43 Kcl PO 10 meq DAILY ARINA Administration Temazepam 7.5 mg 07/07/18 20:27 07/07/18 22:35 Restoril PO 7.5 mg HS PRN Administration INSOMNIA Objective Remarks: GENERAL: Cachectic female patient, sitting in bed, in no acute distress. SKIN: Warm and dry. HEAD: Normocephalic. EYES: No scleral icterus. No injection or drainage. NECK: Supple, trachea midline. CARDIOVASCULAR: +S1/S2 without murmurs. RESPIRATORY: Breath sounds clear, equal bilaterally. Non-labored. GASTROINTESTINAL: Abdomen soft, non-tender, nondistended. EXTREMITIES: No cyanosis, or edema. MUSCULOSKELETAL: Adequate muscle tone. NEUROLOGICAL: No obvious focal deficit. Awake, alert, and oriented x3. PSYCHIATRIC: Appropriate mood and affect; insight and judgment normal. Assessment/Plan (1) Cachexia Code(s): R64 - Cachexia Status: Acute (2) Tobacco abuse Code(s): Z72.0 - Tobacco use Status: Acute (3) Weight loss Code(s): R63.4 - Abnormal weight loss Status: Acute (4) DVT (deep venous thrombosis) Code(s): I82.409 - Acute embolism and thrombosis of unspecified deep veins of unspecified lower extremity Status: Acute (5) Bilateral pulmonary embolism Code(s): I26.99 - Other pulmonary embolism without acute cor pulmonale Status : Acute - Plan Ms. Fontenot is a 57-year-old female who presented to the emergency department with shortness of breath and chest pain and was found to have bilateral pulmonary embolisms and lower extremity DVTs. She also reported a 10 pound recent weight loss. Plan: 1. Bilateral PE and lower extremity DVTs. Patient currently on a heparin drip. Prothrombin mutation negative, factor V Leyden mutation negative. Positive antiphospholipid antibody. Currently bridging to coumadin. INR today, 1.3. 2. Possible lytic lesion at T12, L1, MRI resulted as questionable diskitis versus compression fracture with malignancy not ruled out. Needle biopsy aspiration on 07/05/18. Cytology ordered on specimen, lab aware. 3. Pain management per attending. 4. Continue supportive care. - Attending Statement The exam, history, and the medical decision-making described in the above note were completed with the assistance of the mid-level provider. I reviewed and agree with the findings presented. I attest that I had a [id number] encounter with the patient on the same day, and personally performed and documented my assessment and findings in the medical record. Patient still has back pain. She had biopsy/aspirate of the thoracic lesion on Sunday. Cultures are negative to date. Will order cytology. She is tolerating heparin well. She is being transitioned to Coumadin. She has no chest pressure or shortness of breath.
[2018-07-08] MEDS: Morphine Sulfate 15 MG SR Tablet PO SCH (20:59)
[2018-07-09] MEDS: oxyCODONE/Acetaminophen 10/325 Tablet PO PRN ×6 (01:01→23:00)
[2018-07-09] MEDS: Morphine Inj 4 MG/ML Vial IV.PUSH PRN ×5 (02:30→19:54)
[2018-07-09 08:17] LABS: Baso # (Auto) 0.1 th/mm3 (0.0-0.2); Baso % (Auto) 0.8 % (0.0-2.0); Eos # (Auto) 0.4 th/mm3 (0.0-0.4); Eos % (Auto) 5.3 % (0.0-4.0); Hematocrit 35.3 % (35.0-46.0); Hemoglobin 11.5 gm/dL (11.6-15.3); Lymph # (Auto) 1.2 th/mm3 (1.0-4.8); Lymph % (Auto) 17.3 % (9.0-44.0); Mean Corpuscular HGB Conc 32.6 % (32.0-36.0); Mean Corpuscular Hemoglobin 28.4 pg (27.0-34.0); Mean Platelet Volume 7.8 fL (7.0-11.0); Mono # (Auto) 0.4 th/mm3 (0.0-0.9); Mono % (Auto) 5.3 % (0.0-8.0); Neut # (Auto) 5.1 th/mm3 (1.8-7.7); Neut % (Auto) 71.3 % (16.0-70.0); Platelet Count 319 th/mm3 (150-450); Red Blood Count 4.06 mil/mm3 (4.00-5.30); White Blood Count 7.2 th/mm3 (4.0-11.0)
[2018-07-09 08:21] LABS: INR 1.4 Ratio
[2018-07-09 08:50] LABS: Albumin 2.8 g/dL (3.4-5.0); Anion Gap 8 meq/L (5-15); Aspartate Aminotransferase 26 U/L (15-37); Blood Urea Nitrogen 16 mg/dL (7-18); Calcium 9.2 mg/dL (8.5-10.1); Carbon Dioxide 25.9 meq/L (21.0-32.0); Chloride 102 meq/L (98-107); Glomerular Filtration Rate Greater Than 89 mL/min (>89); Glucose,Random 87 mg/dL (74-106); Potassium 4.3 meq/L (3.5-5.1); Sodium 136 meq/L (136-145)
[2018-07-09 08:54] LABS: Alanine Aminotransferase 28 U/L (10-53); Alkaline Phosphatase 99 U/L (45-117); Total Protein 8.7 g/dL (6.4-8.2)
[2018-07-09] MEDS: Potassium Chloride 10 MEQ ER Capsule PO SCH (09:11)
[2018-07-09] MEDS: Morphine Sulfate 15 MG SR Tablet PO SCH ×2 (09:11→21:11)
[2018-07-09] MEDS: Lidocaine 5% Patch T-DERMAL SCH (09:14)
[2018-07-09] MEDS: Budesonide-Formoterol 80/4.5 MCG 6.9 GM Inhaler INH SCH ×2 (09:15→20:00)
[2018-07-09] MEDS: Calcitonin Salmon Nasal 200 UNITS/Actuation - (3.7 ML) NASAL SCH (09:17)
--- NOTE | 2018-07-09 10:51 | P.PNIM ---
Subjective Interval history: Patient complains of lower back pain. Physical Exam Vital signs: Vital Signs 07/08/18 10:48 07/08/18 12:00 07/08/18 13:27 Temperature 97.9 F Pulse Rate 80 79 Respiratory Rate 18 18 16 Blood Pressure 114/68 118/67 Pulse Oximetry 96 07/08/18 15:05 07/08/18 16:00 07/08/18 20:00 Temperature 97.7 F 97.8 F Pulse Rate 77 79 83 Respiratory Rate 16 16 22 Blood Pressure 120/66 136/85 121/76 Pulse Oximetry 94 L 95 07/09/18 00:00 07/09/18 04:00 07/09/18 08:00 Temperature 98.2 F 98.1 F 97.9 F Pulse Rate 81 79 76 Respiratory Rate 18 18 Blood Pressure 97/63 L 114/59 L 125/79 Pulse Oximetry 95 96 94 L Intake & Output 07/08/18 07/09/18 07/09/18 18:59 06:59 18:59 Intake Total 940 / 940 1696 / 1696 Output Total 1974 Balance 940 / 940 -279 / -279 Intake: IV 100 / 100 146 / 146 Heparin/D5W 25,000 U/250 mL 25, 146 / 146 000 unit In 250 ml @ Per Protocol IV.CONT TITRATE PRN Rx #:[id number] Rocephin Inj 1,000 MG In NS Inj 100 / 100 100 ML @ 200 mls/hr IV.SIG Q24H ARINA Rx#:[id number] Oral 840 / 840 1550 / 1550 Oral Supplement 0 / 0 Output: Urine 1974 Other: # Voids 4 Date of Last Bowel Movement 07/07/18 07/07/18 # Bowel Movements 0 0 Narrative: Patient complaining of back pain HEENT extraocular movements are intact, clear oropharyngeal mucosa, no JVD Cardiovascular S1-S2 audible, RRR, no murmurs rubs or gallops Respiratory clear to auscultation bilaterally Abdomen soft, nontender, nondistended, normal bowel sounds Patient complaining of lower back pain no hematoma or significant swelling noted near the procedure site. Extremities no edema 2+ distal pulses in bilateral upper and lower extremities Neuro cranial nerves II through XII intact - Urinary Catheter Management Female External Cath placed during this visit: no Results - Labs CBC & Chem 7: 07/09/18 07:10 07/09/18 07:10 Laboratory Results - last 24 hr 07/09/18 07/09/18 07/09/18 07:10 07:10 07:10 WBC 7.2 RBC 4.06 Hgb 11.5 L Hct 35.3 MCV 87.0 MCH 28.4 MCHC 32.6 RDW 15.0 Plt Count 319 MPV 7.8 Neut % (Auto) 71.3 H Lymph % (Auto) 17.3 Iron % (Auto) 5.3 Eos % (Auto) 5.3 H Baso % (Auto) 0.8 Neut # (Auto) 5.1 Lymph # (Auto) 1.2 Iron # (Auto) 0.4 Eos # (Auto) 0.4 Baso # (Auto) 0.1 WBC Differential . Differential Comment Auto diff final PT 14.0 H INR 1.4 Sodium 136 Potassium 4.3 Chloride 102 Carbon Dioxide 25.9 Anion Gap 8 BUN 16 Creatinine 0.58 Estimated GFR Greater than 89 Random Glucose 87 Calcium 9.2 Total Bilirubin 0.3 AST 26 ALT 28 Alkaline Phosphatase 99 Total Protein 8.7 H D Albumin 2.8 L Microbiology 07/05/18 13:51 Fluid - Other Gram Stain - Final 07/05/18 13:51 Fluid - Other Wound Culture - Final No growth in 72 hours (aerobically and anaerobically ) - Imaging Impressions Needle Biopsy/Aspiration X-Ray 07/05/18 00:00 CONCLUSION: 1. Uncomplicated needle aspiration biopsy of the T12/L1 level as above. - Procedures NONE Assessment and Plan - Plan Ms. Fontenot is a 57-year-old female who presented to the emergency department with shortness of breath and chest pain and was found to have bilateral pulmonary embolisms and lower extremity DVTs. 1. Bilateral PE and lower extremity DVTs. Patient currently on a heparin drip. Prothrombin mutation negative, factor V Leyden mutation negative. Positive antiphospholipid antibody. Currently bridging to coumadin. INR today is 1.4. An INR will be ordered for tomorrow. The patient will be continued on heparin drip until INR is therapeutic between 2 and 3. Heme oncology is following the patient. 2. Discitis MRI resulted as questionable discitis and the possibility of malignancy. The patient underwent needle biopsy aspiration on 07/05/18. Cytology on the specimen is currently pending. Continue pain medication for discitis.
--- NOTE | 2018-07-09 13:11 | P.PNOP ---
Subjective Interval history: Continues to complain of back pain. Denies new onset weakness, numbness or tingling Physical Exam Vital signs: Vital Signs 07/08/18 13:27 07/08/18 15:05 07/08/18 16:00 Temperature 97.7 F Pulse Rate 77 79 Respiratory Rate 16 16 16 Blood Pressure 120/66 136/85 Pulse Oximetry 94 L 07/08/18 20:00 07/09/18 00:00 07/09/18 04:00 Temperature 97.8 F 98.2 F 98.1 F Pulse Rate 83 81 79 Respiratory Rate 22 18 18 Blood Pressure 121/76 97/63 L 114/59 L Pulse Oximetry 95 95 96 07/09/18 08:00 07/09/18 12:00 Temperature 97.9 F 97.9 F Pulse Rate 76 82 Respiratory Rate 18 18 Blood Pressure 125/79 100/65 Pulse Oximetry 94 L 93 L Intake & Output 07/08/18 07/09/18 07/09/18 18:59 06:59 18:59 Intake Total 940 / 940 1696 / 1696 Output Total 1974 Balance 940 / 940 -279 / -279 Intake: IV 100 / 100 146 / 146 Heparin/D5W 25,000 U/250 mL 25, 146 / 146 000 unit In 250 ml @ Per Protocol IV.CONT TITRATE PRN Rx #:[id number] Rocephin Inj 1,000 MG In NS Inj 100 / 100 100 ML @ 200 mls/hr IV.SIG Q24H ARINA Rx#:[id number] Oral 840 / 840 1550 / 1550 Oral Supplement 0 / 0 Output: Urine 1974 Other: # Voids 4 Date of Last Bowel Movement 07/07/18 07/07/18 # Bowel Movements 0 0 Narrative: Awake, alert, NAD BLE: grossly intact throughout. Sensation intact. Negative homans. BCR - Urinary Catheter Management Female External Cath placed during this visit: no Results - Labs CBC & Chem 7: 07/09/18 07:10 07/09/18 07:10 Laboratory Results - last 24 hr 07/09/18 07/09/18 07/09/18 07:10 07:10 07:10 WBC 7.2 RBC 4.06 Hgb 11.5 L Hct 35.3 MCV 87.0 MCH 28.4 MCHC 32.6 RDW 15.0 Plt Count 319 MPV 7.8 Neut % (Auto) 71.3 H Lymph % (Auto) 17.3 [place] % (Auto) 5.3 Eos % (Auto) 5.3 H Baso % (Auto) 0.8 Neut # (Auto) 5.1 Lymph # (Auto) 1.2 [place] # (Auto) 0.4 Eos # (Auto) 0.4 Baso # (Auto) 0.1 WBC Differential . Differential Comment Auto diff final PT 14.0 H INR 1.4 Sodium 136 Potassium 4.3 Chloride 102 Carbon Dioxide 25.9 Anion Gap 8 BUN 16 Creatinine 0.58 Estimated GFR Greater than 89 Random Glucose 87 Calcium 9.2 Total Bilirubin 0.3 AST 26 ALT 28 Alkaline Phosphatase 99 Total Protein 8.7 H D Albumin 2.8 L Microbiology 07/05/18 13:51 Fluid - Other Gram Stain - Final 07/05/18 13:51 Fluid - Other Wound Culture - Final No growth in 72 hours (aerobically and anaerobically ) - Procedures NONE Assessment and Plan - Assessment and Plan 57-year-old female with persistent low back pain with MRI and bone scan showing possible lytic lesion with significant enhancement, underwent IR biopsy T12-L1 with negative cultures. Cytology on aspirate pending to rule out malignancy. Should this be negative, could consider kyphoplasty to attempt to decrease back pain. With negative cultures, diskitis is less likely at this time. Differential still includes fracture vs malignancy.
--- NOTE | 2018-07-09 15:02 | P.PNONC ---
Subjective Interval history: Afebrile. Patient continues to have low back pain. Continues on heparin drip, transitioning to Coumadin. Tolerating well, denies bleeding. Objective Vital Signs/Intake & Output: Vital Signs 07/08/18 15:05 07/08/18 16:00 07/08/18 20:00 Temperature 97.7 F 97.8 F Pulse Rate 77 79 83 Respiratory Rate 16 16 22 Blood Pressure 120/66 136/85 121/76 Pulse Oximetry 94 L 95 07/09/18 00:00 07/09/18 04:00 07/09/18 08:00 Temperature 98.2 F 98.1 F 97.9 F Pulse Rate 81 79 76 Respiratory Rate 18 18 18 Blood Pressure 97/63 L 114/59 L 125/79 Pulse Oximetry 95 96 94 L 07/09/18 12:00 Temperature 97.9 F Pulse Rate 82 Respiratory Rate 18 Blood Pressure 100/65 Pulse Oximetry 93 L Intake & Output 07/08/18 07/09/18 07/09/18 18:59 06:59 18:59 Intake Total 940 / 940 1696 / 1696 Output Total 1974 Balance 940 / 940 -279 / -279 Intake: IV 100 / 100 146 / 146 Heparin/D5W 25,000 U/250 mL 25, 146 / 146 000 unit In 250 ml @ Per Protocol IV.CONT TITRATE PRN Rx #:[id number] Rocephin Inj 1,000 MG In NS Inj 100 / 100 100 ML @ 200 mls/hr IV.SIG Q24H ARINA Rx#:[id number] Oral 840 / 840 1550 / 1550 Oral Supplement 0 / 0 Output: Urine 1974 Other: # Voids 4 Date of Last Bowel Movement 07/07/18 07/07/18 # Bowel Movements 0 0 Result Diagrams: 07/09/18 07:10 07/09/18 07:10 Laboratory Results: Laboratory Results - last 24 hr 07/09/18 07/09/18 07/09/18 07:10 07:10 07:10 WBC 7.2 RBC 4.06 Hgb 11.5 L Hct 35.3 MCV 87.0 MCH 28.4 MCHC 32.6 RDW 15.0 Plt Count 319 MPV 7.8 Neut % (Auto) 71.3 H Lymph % (Auto) 17.3 [place] % (Auto) 5.3 Eos % (Auto) 5.3 H Baso % (Auto) 0.8 Neut # (Auto) 5.1 Lymph # (Auto) 1.2 [place] # (Auto) 0.4 Eos # (Auto) 0.4 Baso # (Auto) 0.1 WBC Differential . Differential Comment Auto diff final PT 14.0 H INR 1.4 Sodium 136 Potassium 4.3 Chloride 102 Carbon Dioxide 25.9 Anion Gap 8 BUN 16 Creatinine 0.58 Estimated GFR Greater than 89 Random Glucose 87 Calcium 9.2 Total Bilirubin 0.3 AST 26 ALT 28 Alkaline Phosphatase 99 Total Protein 8.7 H D Albumin 2.8 L Culture Results: Microbiology 07/05/18 13:51 Gram Stain - Final Fluid - Other Wound Culture - Final No growth in 72 hours (aerobically and anaerobically) 07/05/18 13:51 Acid Fast Bacilli Smear - Final Abscess - Other No acid fast bacilli seen 07/05/18 13:51 Fungal Smear - Final Abscess - Other No fungal elements seen Medications: Active Medications Generic Name Dose Route Start Last Admin Trade Name Freq PRN Reason Stop Dose Admin Budesonide/Formoterol Fumarate 2 puff 06/29/18 21:00 07/09/18 09:15 Symbicort 80/4.5 Mcg Inh INH 2 puff BID ARINA Administration Calcitonin [place] 1 sprays 07/01/18 09:00 07/09/18 09:17 Calcitonin [place] Nasal NASAL Not Given DAILY ARINA Cyclobenzaprine HCl 10 mg 07/06/18 14:00 07/09/18 13:34 Flexeril PO 10 mg Q8HR ARINA Administration Heparin Sodium/Dextrose 25,000 unit in 250 mls @ 0 mls/hr 06/29/18 09:58 21:15 Heparin/D5w 25,000 U/250 Ml IV.CONT 1,300 units/hr TITRATE PRN 13 mls/hr Per Protocol Administration Protocol Per Protocol Ceftriaxone Sodium 1,000 mg/ 100 mls @ 200 mls/hr 06/29/18 14:00 07/09/18 13: 34 Sodium Chloride IV.SIG 200 mls/hr Q24H ARINA Administration Lidocaine HCl 1 patch 06/29/18 10:00 07/09/18 09:14 Lidoderm 5% Patch.12 Hr T-DERMAL Not Given DAILY ARINA Morphine Sulfate 4 mg 07/04/18 10:08 07/09/18 11:24 Morphine Inj IV.PUSH 4 mg Q4H PRN Administration BREAKTHROUGH PAIN Morphine Sulfate 15 mg 07/08/18 21:00 07/09/18 09:11 Oramorph Sr PO 15 mg Q12HR ARINA Administration Oxycodone/Acetaminophen 1 tab 07/03/18 13:59 07/09/18 13:33 Percocet 10/325 Mg PO 1 tab Q4H PRN Administration Pain 7 to 10 Patch Removal 1 each 06/29/18 21:00 07/08/18 21:00 Remove Old Patch T-DERMAL Not Given HS ARINA Potassium Chloride 10 meq 06/30/18 12:00 07/09/18 09:11 Kcl PO 10 meq DAILY ARINA Administration Temazepam 7.5 mg 07/07/18 20:27 07/08/18 22:37 Restoril PO 7.5 mg HS PRN Administration INSOMNIA Warfarin Sodium 7.5 mg 07/08/18 16:00 07/08/18 17:47 Coumadin PO 7.5 mg DAILY@1600 ARINA Administration Objective Remarks: GENERAL: Cachectic female patient, lying in bed, in no acute distress. SKIN: Warm and dry. HEAD: Normocephalic. EYES: No scleral icterus. No injection or drainage. NECK: Supple, trachea midline. CARDIOVASCULAR: +S1/S2 without murmurs. RESPIRATORY: Breath sounds clear, equal bilaterally. Non-labored. GASTROINTESTINAL: Abdomen soft, non-tender, nondistended. EXTREMITIES: No cyanosis, or edema. MUSCULOSKELETAL: Adequate muscle tone. NEUROLOGICAL: No obvious focal deficit. Awake, alert, and oriented x3. PSYCHIATRIC: Appropriate mood and affect; insight and judgment normal. Assessment/Plan (1) Cachexia Code(s): R64 - Cachexia Status: Acute (2) Tobacco abuse Code(s): Z72.0 - Tobacco use Status: Acute (3) Weight loss Code(s): R63.4 - Abnormal weight loss Status: Acute (4) DVT (deep venous thrombosis) Code(s): I82.409 - Acute embolism and thrombosis of unspecified deep veins of unspecified lower extremity Status: Acute (5) Bilateral pulmonary embolism Code(s): I26.99 - Other pulmonary embolism without acute cor pulmonale Status : Acute - Plan Ms. Fontenot is a 57-year-old female who presented to the emergency department with shortness of breath and chest pain and was found to have bilateral pulmonary embolisms and lower extremity DVTs. She also reported a 10 pound recent weight loss. Plan: 1. Bilateral PE and lower extremity DVTs. Patient currently on a heparin drip. Prothrombin mutation negative, factor V Leyden mutation negative. Positive antiphospholipid antibody. Currently bridging to coumadin. INR today, 1.4. 2. Possible lytic lesion at T12, L1, MRI resulted as questionable diskitis versus compression fracture with malignancy not ruled out. Needle biopsy aspiration on 07/05/18. Cytology pending. Imaging reviewed at tumor board today , per radiologist this does not appear to be any type of malignancy, more consistent with a chronic discitis. We will await final cytology. 3. Pain management per attending. 4. Continue supportive care. - Attending Statement The exam, history, and the medical decision-making described in the above note were completed with the assistance of the mid-level provider. I reviewed and agree with the findings presented. I attest that I had a [id number] encounter with the patient on the same day, and personally performed and documented my assessment and findings in the medical record. Patient still complaining of back pain. Review MRI with radiologist and the finding more consistent with discitis and no neoplasm. The cultures have been negative to date. Cytology is still pending. Continue heparin and bridged to Coumadin. She has positive antiphospholipid antibody which will need to be repeated in a few months.
[2018-07-09] MEDS: Heparin Drip 25,000 UNIT/250 ML BAG IV.CONT PRN (16:50)
[2018-07-10] MEDS: Morphine Inj 4 MG/ML Vial IV.PUSH PRN ×5 (01:01→19:05)
[2018-07-10] MEDS: oxyCODONE/Acetaminophen 10/325 Tablet PO PRN ×5 (03:13→23:04)
[2018-07-10 06:20] LABS: Activated Partial Thrombo Time 64.7 sec (24.3-30.1); INR 1.8 Ratio
[2018-07-10] MEDS: Morphine Sulfate 15 MG SR Tablet PO SCH ×2 (08:38→21:08)
[2018-07-10] MEDS: Potassium Chloride 10 MEQ ER Capsule PO SCH (08:38)
[2018-07-10] MEDS: Lidocaine 5% Patch T-DERMAL SCH (08:39)
[2018-07-10] MEDS: Calcitonin Salmon Nasal 200 UNITS/Actuation - (3.7 ML) NASAL SCH (08:39)
[2018-07-10] MEDS: Budesonide-Formoterol 80/4.5 MCG 6.9 GM Inhaler INH SCH ×2 (08:40→21:08)
[2018-07-10] MEDS: Heparin Drip 25,000 UNIT/250 ML BAG IV.CONT PRN (15:26)
--- NOTE | 2018-07-10 16:01 | P.PNIM ---
Subjective Interval history: Patient complains of lower back pain. She is tolerating a p.o. diet. She does not have any other complaints other than back pain. Physical Exam Vital signs: Vital Signs 07/09/18 20:00 07/10/18 00:00 07/10/18 03:33 Temperature 98.3 F 97.8 F 98.1 F Pulse Rate 82 89 82 Respiratory Rate 18 18 16 Blood Pressure 112/69 123/85 121/83 Pulse Oximetry 95 95 97 07/10/18 04:00 07/10/18 08:00 07/10/18 12:00 Temperature 97.3 F L 98.1 F Pulse Rate 88 85 86 Respiratory Rate 16 16 Blood Pressure 122/84 111/80 Pulse Oximetry 97 95 Intake & Output 07/09/18 07/10/18 07/10/18 18:59 06:59 18:59 Intake Total 830 / 830 1206 / 1206 194 / 194 Balance 830 / 830 1206 / 1206 194 / 194 Weight 44.8 kg Intake: IV 350 / 350 156 / 156 194 / 194 Heparin/D5W 25,000 U/250 mL 25, 250 / 250 156 / 156 94 / 94 000 unit In 250 ml @ Per Protocol IV.CONT TITRATE PRN Rx #:[id number] Rocephin Inj 1,000 MG In NS Inj 100 / 100 100 / 100 100 ML @ 200 mls/hr IV.SIG Q24H [facility] Rx#:[id number] Oral 480 / 480 1050 / 1050 Other: # Voids 4 5 Date of Last Bowel Movement 07/07/18 07/09/18 # Bowel Movements 1 Narrative: Patient complaining of back pain HEENT extraocular movements are intact, clear oropharyngeal mucosa, no JVD Cardiovascular S1-S2 audible, RRR, no murmurs rubs or gallops Respiratory clear to auscultation bilaterally Abdomen soft, nontender, nondistended, normal bowel sounds Patient complaining of lower back pain no hematoma or significant swelling noted near the procedure site. Extremities no edema 2+ distal pulses in bilateral upper and lower extremities Neuro cranial nerves II through XII intact - Urinary Catheter Management Female External Cath placed during this visit: no Results - Labs CBC & Chem 7: 07/09/18 07:10 07/09/18 07:10 Laboratory Results - last 24 hr 07/10/18 05:12 PT 18.0 H INR 1.8 APTT 64.7 H - Procedures NONE Assessment and Plan - Plan Ms. Fontenot is a 57-year-old female who presented to the emergency department with shortness of breath and chest pain and was found to have bilateral pulmonary embolisms and lower extremity DVTs. 1. Bilateral PE and lower extremity DVTs. Patient currently on a heparin drip. Prothrombin mutation negative, factor V Leyden mutation negative. Positive antiphospholipid antibody. Currently bridging to coumadin. INR today is 1.8. An INR will be ordered for tomorrow. The patient will be continued on heparin drip until INR is therapeutic between 2 and 3. Heme oncology is following the patient. Once the patient's INR is therapeutic we will prepare the patient plan for discharge. 2. Discitis MRI resulted as questionable discitis and the possibility of malignancy. The patient underwent needle biopsy aspiration on 07/05/18. Cytology on the specimen is currently pending. Unlikely infectious as the patient's blood cultures were negative. This could possibly be due to a fracture or malignancy. Cytology will be followed up. Continue pain medication for discitis.
--- NOTE | 2018-07-10 16:12 | P.PNONC ---
Subjective Interval history: Patient lying in bed, no acute distress. She reports continued back pain. She states she does not know what they are going to do to make her back started hurting. She also reports no appetite. Denies any bleeding. INR today 1.8 continues on heparin drip. Cytology still pending. Objective Vital Signs/Intake & Output: Vital Signs 07/09/18 20:00 07/10/18 00:00 07/10/18 03:33 Temperature 98.3 F 97.8 F 98.1 F Pulse Rate 82 89 82 Respiratory Rate 18 18 16 Blood Pressure 112/69 123/85 121/83 Pulse Oximetry 95 95 97 07/10/18 04:00 07/10/18 08:00 07/10/18 12:00 Temperature 97.3 F L 98.1 F Pulse Rate 88 85 86 Respiratory Rate 16 16 Blood Pressure 122/84 111/80 Pulse Oximetry 97 95 Intake & Output 07/09/18 07/10/18 07/10/18 18:59 06:59 18:59 Intake Total 830 / 830 1206 / 1206 194 / 194 Balance 830 / 830 1206 / 1206 194 / 194 Weight 44.8 kg Intake: IV 350 / 350 156 / 156 194 / 194 Heparin/D5W 25,000 U/250 mL 25, 250 / 250 156 / 156 94 / 94 000 unit In 250 ml @ Per Protocol IV.CONT TITRATE PRN Rx #:[id number] Rocephin Inj 1,000 MG In NS Inj 100 / 100 100 / 100 100 ML @ 200 mls/hr IV.SIG Q24H [facility] Rx#:[id number] Oral 480 / 480 1050 / 1050 Other: # Voids 4 5 Date of Last Bowel Movement 07/07/18 07/09/18 # Bowel Movements 1 Result Diagrams: 07/09/18 07:10 07/09/18 07:10 Laboratory Results: Laboratory Results - last 24 hr 07/10/18 05:12 PT 18.0 H INR 1.8 APTT 64.7 H Culture Results: Microbiology 07/05/18 13:51 Gram Stain - Final Fluid - Other Wound Culture - Final No growth in 72 hours (aerobically and anaerobically) Medications: Active Medications Generic Name Dose Route Start Last Admin Trade Name Freq PRN Reason Stop Dose Admin Budesonide/Formoterol Fumarate 2 puff 06/29/18 21:00 07/10/18 08:40 Symbicort 80/4.5 Mcg Inh INH 2 puff BID [facility] Administration Calcitonin [place] 1 sprays 07/01/18 09:00 07/10/18 08:39 Calcitonin [place] Nasal NASAL 1 sprays DAILY [facility] Administration Cyclobenzaprine HCl 10 mg 07/06/18 14:00 07/10/18 13:35 Flexeril PO 10 mg Q8HR [facility] Administration Heparin Sodium/Dextrose 25,000 unit in 250 mls @ 0 mls/hr 06/29/18 09:58 15:26 Heparin/D5w 25,000 U/250 Ml IV.CONT 1,300 units/hr TITRATE PRN 13 mls/hr Per Protocol Administration Protocol Per Protocol Ceftriaxone Sodium 1,000 mg/ 100 mls @ 200 mls/hr 06/29/18 14:00 07/10/18 14: 05 Sodium Chloride IV.SIG Infused Q24H [facility] Infusion Lidocaine HCl 1 patch 06/29/18 10:00 07/10/18 08:39 Lidoderm 5% Patch.12 Hr T-DERMAL Not Given DAILY [facility] Morphine Sulfate 4 mg 07/04/18 10:08 07/10/18 14:28 Morphine Inj IV.PUSH 4 mg Q4H PRN Administration BREAKTHROUGH PAIN Morphine Sulfate 15 mg 07/08/18 21:00 07/10/18 08:38 Oramorph Sr PO 15 mg Q12HR [facility] Administration Oxycodone/Acetaminophen 1 tab 07/03/18 13:59 07/10/18 12:35 Percocet 10/325 Mg PO 1 tab Q4H PRN Administration Pain 7 to 10 Patch Removal 1 each 06/29/18 21:00 07/09/18 20:01 Remove Old Patch T-DERMAL Not Given HS [facility] Potassium Chloride 10 meq 06/30/18 12:00 07/10/18 08:38 Kcl PO 10 meq DAILY [facility] Administration Temazepam 7.5 mg 07/07/18 20:27 07/08/18 22:37 Restoril PO 7.5 mg HS PRN Administration INSOMNIA Warfarin Sodium 7.5 mg 07/08/18 16:00 07/10/18 15:25 Coumadin PO 7.5 mg DAILY@1600 [facility] Administration Objective Remarks: GENERAL: Cachectic female patient, lying in bed, in no acute distress. SKIN: Warm and dry. HEAD: Normocephalic. EYES: No scleral icterus. No injection or drainage. NECK: Supple, trachea midline. CARDIOVASCULAR: +S1/S2 without murmurs. RESPIRATORY: Breath sounds clear, equal bilaterally. Non-labored. GASTROINTESTINAL: Abdomen soft, non-tender, nondistended. EXTREMITIES: No cyanosis, or edema. MUSCULOSKELETAL: Adequate muscle tone. NEUROLOGICAL: No obvious focal deficit. Awake, alert, and oriented x3. PSYCHIATRIC: Appropriate mood and affect; insight and judgment normal. Assessment/Plan (1) Cachexia Code(s): R64 - Cachexia Status: Acute (2) Tobacco abuse Code(s): Z72.0 - Tobacco use Status: Acute (3) Weight loss Code(s): R63.4 - Abnormal weight loss Status: Acute (4) DVT (deep venous thrombosis) Code(s): I82.409 - Acute embolism and thrombosis of unspecified deep veins of unspecified lower extremity Status: Acute (5) Bilateral pulmonary embolism Code(s): I26.99 - Other pulmonary embolism without acute cor pulmonale Status : Acute - Plan Ms. Fontenot is a 57-year-old female who presented to the emergency department with shortness of breath and chest pain and was found to have bilateral pulmonary embolisms and lower extremity DVTs. She also reported a 10 pound recent weight loss. Plan: 1. Bilateral PE and lower extremity DVTs. Patient currently on a heparin drip. Prothrombin mutation negative, factor V Leyden mutation negative. Positive antiphospholipid antibody, this will need to be followed up on in approximately 6 months. Currently bridging to coumadin. INR today, 1.8. 2. Possible lytic lesion at T12, L1, MRI resulted as questionable diskitis versus compression fracture with malignancy not ruled out. Needle biopsy aspiration on 07/05/18. Cytology pending. We will await final cytology. 3. Pain management per attending. 4. Continue supportive care. - Attending Statement The exam, history, and the medical decision-making described in the above note were completed with the assistance of the mid-level provider. I reviewed and agree with the findings presented. I attest that I had a [id number] encounter with the patient on the same day, and personally performed and documented my assessment and findings in the medical record. Patient still has back pain. She has no bleeding. She denies any chest pressure or shortness of breath. She is tolerating heparin well. INR has trended up to 1.8. Cytology from biopsy still pending. The MRI appeared to be chronic discitis and less likely to be malignancy.
[2018-07-11] MEDS: Morphine Inj 4 MG/ML Vial IV.PUSH PRN ×4 (01:06→17:43)
[2018-07-11] MEDS: oxyCODONE/Acetaminophen 10/325 Tablet PO PRN ×5 (03:01→22:41)
[2018-07-11 07:04] LABS: Activated Partial Thrombo Time 50.4 sec (24.3-30.1); INR 2.2 Ratio; Prothrombin Time 22.5 sec (9.8-11.6)
--- NOTE | 2018-07-11 09:16 | P.PNONC ---
Subjective Interval history: Afebrile. Patient sitting up in bed, eating breakfast. She is aware of her cytology results being negative for malignancy. She is asking what we are going to do for her back. This has been deferred to the attending care team. INR 2.2 today, continues on heparin drip, currently being bridged to Coumadin. Objective Vital Signs/Intake & Output: Vital Signs 07/10/18 12:00 07/10/18 16:00 07/10/18 20:00 Temperature 98.1 F 98.2 F 98.0 F Pulse Rate 82 81 84 Respiratory Rate 16 16 18 Blood Pressure 111/80 118/67 124/79 Pulse Oximetry 95 95 95 07/11/18 00:00 07/11/18 04:00 07/11/18 08:00 Temperature 97.7 F 98.1 F 97.8 F Pulse Rate 87 85 83 Respiratory Rate 17 21 18 Blood Pressure 132/81 132/80 117/74 Pulse Oximetry 95 95 95 Intake & Output 07/10/18 07/11/18 07/11/18 18:59 06:59 18:59 Intake Total 194 / 194 635 / 635 Output Total 800 / 800 Balance 194 / 194 -165 / -165 Weight 43.2 kg Intake: IV 194 / 194 155 / 155 Heparin/D5W 25,000 U/250 mL 25, 94 / 94 155 / 155 000 unit In 250 ml @ Per Protocol IV.CONT TITRATE PRN Rx #:[id number] Rocephin Inj 1,000 MG In NS Inj 100 / 100 100 ML @ 200 mls/hr IV.SIG Q24H [facility] Rx#:[id number] Oral 480 / 480 Output: Urine 800 / 800 Other: Date of Last Bowel Movement 07/10/18 Result Diagrams: 07/09/18 07:10 07/09/18 07:10 Laboratory Results: Laboratory Results - last 24 hr 07/11/18 03:25 PT 22.5 H INR 2.2 APTT 50.4 H D Culture Results: Microbiology 07/05/18 13:51 Gram Stain - Final Fluid - Other Wound Culture - Final No growth in 72 hours (aerobically and anaerobically) Medications: Active Medications Generic Name Dose Route Start Last Admin Trade Name Freq PRN Reason Stop Dose Admin Budesonide/Formoterol Fumarate 2 puff 06/29/18 21:00 07/10/18 21:08 Symbicort 80/4.5 Mcg Inh INH 2 puff BID [facility] Administration Calcitonin [place] 1 sprays 07/01/18 09:00 07/10/18 08:39 Calcitonin [place] Nasal NASAL 1 sprays DAILY [facility] Administration Cyclobenzaprine HCl 10 mg 07/06/18 14:00 07/11/18 05:06 Flexeril PO 10 mg Q8HR [facility] Administration Heparin Sodium/Dextrose 25,000 unit in 250 mls @ 0 mls/hr 06/29/18 09:58 06:09 Heparin/D5w 25,000 U/250 Ml IV.CONT 1,300 units/hr TITRATE PRN 13 mls/hr Per Protocol Titration Protocol Per Protocol Ceftriaxone Sodium 1,000 mg/ 100 mls @ 200 mls/hr 06/29/18 14:00 07/10/18 14: 05 Sodium Chloride IV.SIG Infused Q24H [facility] Infusion Lidocaine HCl 1 patch 06/29/18 10:00 07/10/18 08:39 Lidoderm 5% Patch.12 Hr T-DERMAL Not Given DAILY [facility] Morphine Sulfate 4 mg 07/04/18 10:08 07/11/18 05:06 Morphine Inj IV.PUSH 4 mg Q4H PRN Administration BREAKTHROUGH PAIN Morphine Sulfate 15 mg 07/08/18 21:00 07/10/18 21:08 Oramorph Sr PO 15 mg Q12HR [facility] Administration Oxycodone/Acetaminophen 1 tab 07/03/18 13:59 07/11/18 06:57 Percocet 10/325 Mg PO 1 tab Q4H PRN Administration Pain 7 to 10 Patch Removal 1 each 06/29/18 21:00 07/10/18 21:08 Remove Old Patch T-DERMAL Not Given HS [facility] Potassium Chloride 10 meq 06/30/18 12:00 07/10/18 08:38 Kcl PO 10 meq DAILY [facility] Administration Temazepam 7.5 mg 07/07/18 20:27 07/10/18 21:15 Restoril PO 7.5 mg HS PRN Administration INSOMNIA Warfarin Sodium 7.5 mg 07/08/18 16:00 07/10/18 15:25 Coumadin PO 7.5 mg DAILY@1600 [facility] Administration Objective Remarks: GENERAL: Cachectic female patient, lying in bed, in no acute distress. SKIN: Warm and dry. HEAD: Normocephalic. EYES: No scleral icterus. No injection or drainage. NECK: Supple, trachea midline. CARDIOVASCULAR: +S1/S2 without murmurs. RESPIRATORY: Breath sounds clear, equal bilaterally. Non-labored. GASTROINTESTINAL: Abdomen soft, non-tender, nondistended. EXTREMITIES: No cyanosis, or edema. MUSCULOSKELETAL: Adequate muscle tone. NEUROLOGICAL: No obvious focal deficit. Awake, alert, and oriented x3. PSYCHIATRIC: Appropriate mood and affect; insight and judgment normal. Assessment/Plan (1) Cachexia Code(s): R64 - Cachexia Status: Acute (2) Tobacco abuse Code(s): Z72.0 - Tobacco use Status: Acute (3) Weight loss Code(s): R63.4 - Abnormal weight loss Status: Acute (4) DVT (deep venous thrombosis) Code(s): I82.409 - Acute embolism and thrombosis of unspecified deep veins of unspecified lower extremity Status: Acute (5) Bilateral pulmonary embolism Code(s): I26.99 - Other pulmonary embolism without acute cor pulmonale Status : Acute - Plan Ms. Fontenot is a 57-year-old female who presented to the emergency department with shortness of breath and chest pain and was found to have bilateral pulmonary embolisms and lower extremity DVTs. She also reported a 10 pound recent weight loss. Plan: 1. Bilateral PE and lower extremity DVTs. Prothrombin mutation negative, factor V Leyden mutation negative. Positive antiphospholipid antibody, this will need to be followed up on in approximately 6 months. Patient currently on a heparin drip. Currently bridging to coumadin. INR today, 2.2. We will repeat INR at 1400 today, if remains therapeutic the heparin drip may be discontinued. Continue daily INRs. 2. Possible lytic lesion at T12, L1, MRI resulted as questionable diskitis versus compression fracture with malignancy not ruled out. Needle biopsy aspiration on 07/05/18, was negative for malignancy. 3. Pain management per attending. 4. Patient will need long-term anticoagulation. She states she does not have a primary care physician. She will need close outpatient follow-up of INRs/ coumadin dosing. Case management following the patient please assist her in obtaining a follow-up appointment with a primary care physician. 5. Recommend following up with PCP in approximately 6 months for repeat antiphospholipid antibody testing. 6. We will follow peripherally. - Attending Statement The exam, history, and the medical decision-making described in the above note were completed with the assistance of the mid-level provider. I reviewed and agree with the findings presented. I attest that I had a [id number] encounter with the patient on the same day, and personally performed and documented my assessment and findings in the medical record. Patient still has back pain. Cytology did not show any malignancy. Culture has been negative to date. Infectious disease has been consulted. Her INR is now therapeutic. We will stop the heparin. Recommend repeating antiphospholipid antibody in 3-6 month. Recommend long-term anticoagulation. No other hematology intervention at this time. I will sign off and please call if other question arises.
[2018-07-11] MEDS: Calcitonin Salmon Nasal 200 UNITS/Actuation - (3.7 ML) NASAL SCH (09:38)
[2018-07-11] MEDS: Potassium Chloride 10 MEQ ER Capsule PO SCH (09:38)
[2018-07-11] MEDS: Budesonide-Formoterol 80/4.5 MCG 6.9 GM Inhaler INH SCH ×2 (09:38→21:20)
[2018-07-11] MEDS: Morphine Sulfate 15 MG SR Tablet PO SCH ×2 (09:38→20:36)
[2018-07-11] MEDS: Lidocaine 5% Patch T-DERMAL SCH (09:41)
[2018-07-11] MEDS: Heparin Drip 25,000 UNIT/250 ML BAG IV.CONT PRN (12:39)
--- NOTE | 2018-07-11 14:33 | P.CONID ---
History of Present Illness Service: Infectious disease Consult date: 07/11/18 Requesting Physician: Tootie Goldsmith Reason for Consult: Evaluate patient for possible discitis Primary Care Provider: No Primary Care Physician Chief Complaint: Chest pain and shortness of breath History of Present Illness: Patient seen and examined. Records reviewed. Patient is a 57-year-old female, with known history of tobacco abuse, presented initially to the emergency room in [place] complaining of chest pain and shortness of breath. She was found to have bilateral pulmonary embolism and pleural effusion on pulmonary CTA. She was transferred to the [facility] hospital for further evaluation and treatment. Hematology was consulted, and she had a workup for hypercoagulable state, as well as workup for possible malignancy. CT of the abdomen and pelvis did not show any abnormality. She has been complaining of back pain, and she underwent thoracic MRI which showed an abnormality at T12-L1. Patient apparently has been having back pain for several months. She has had several ED visits, first one was back in May and at that time she was told she had a urinary tract infection. She was given an antibiotic but it did not improve so she went back and at that time she was told she had some kind of a colitis. Patient underwent CT-guided biopsy aspiration of T12-L1, and cytology did not show any malignancy. It did not show any inflammatory cells on the cytology. Culture of the aspiration is negative. Her WBC has been normal. Her temperatures have been within normal limits. Patient's chest pain and shortness of breath has improved. Her main complaint is the spasm she gets in her lower back. She denies any urinary complaints as far as dysuria or any hematuria. Her blood cultures are negative. Urine culture showed mixed fabi compatible with contamination. Infectious disease consultation has been requested to evaluate the patient for possible discitis. Review of Systems Constitutional: Denies chills, Denies fever(s), Denies night sweats Eyes: Denies discharge, Denies dry eyes Ears, Nose, Mouth, and Throat: Denies dental pain, Denies difficulty swallowing , Denies ear pain, Denies headache(s), Denies nasal discharge, Denies sinus pain , Denies sore throat Cardiovascular: Reports chest pain, Reports shortness of breath Respiratory: Reports shortness of breath, Denies chest congestion, Denies cough Gastrointestinal: Denies abdominal pain, Denies loose stools, Denies nausea, Denies vomiting Genitourinary: Denies difficulty urinating, Denies painful urination Musculoskeletal: Reports back pain, Denies joint pain, Denies joint swelling Skin/Breast: Denies rash, Denies sores PMFSH - History History Provided By: Patient - Medical History Medical History: Medical History (Last Reviewed 07/11/18 @ 09:21 by Tracy Becerril) History of ectopic Tobacco abuse Onset Date: ~1974 - Surgical History Surgical History: Surgical History (Last Reviewed 07/11/18 @ 09:21 by Tracy Becerril) History of bilateral salpingectomy - Family History Family History: Family History (Last Reviewed 07/11/18 @ 09:21 by Tracy Becerril) Mother Hypertension - Tobacco History Second Hand Smoke Exposure: Yes Tobacco Use In Past 30 Days: Yes Smoking Status: Heavy tobacco smoker Tobacco Type: Cigarettes Packs Per Day: 1 Years Smoked: 42 - Alcohol History How Often Do You Have a Drink Containing Alcohol: Never - Substance Use History Substance History: No History of Abuse Medications and Allergies Active Medications: Active Medications Al Hydroxide/Mg Hydroxide (Milk Of [place]) 30 ml PO Q12H PRN PRN Reason: Mild Constipation Albuterol (Duoneb Neb (Prn)) 1 ampul NEB Q2HR NEB PRN PRN Reason: SHORTNESS OF BREATH/WHEEZING Budesonide/Formoterol Fumarate (Symbicort 80/4.5 Mcg Inh) 2 puff INH BID [facility] Last Admin: 07/11/18 09:38 Dose: 2 puff Calcitonin [place] (Calcitonin [place] Nasal) 1 sprays NASAL DAILY [facility] Last Admin: 07/11/18 09:38 Dose: 1 sprays Cyclobenzaprine HCl (Flexeril) 10 mg PO Q8HR [facility] Last Admin: 07/11/18 13:24 Dose: 10 mg Heparin Sodium/Dextrose (Heparin/D5w 25,000 U/250 Ml) 25,000 unit in 250 mls @ 0 mls/hr IV.CONT TITRATE PRN; Protocol PRN Reason: Per Protocol Last Admin: 07/11/18 12:39 Dose: 1,300 units/hr, 13 mls/hr Ceftriaxone Sodium 1,000 mg/ (Sodium Chloride) 100 mls @ 200 mls/hr IV.SIG Q24H [facility] Last Infusion: 07/11/18 13:54 Dose: Infused Lidocaine HCl (Lidoderm 5% Patch.12 Hr) 1 patch T-DERMAL DAILY [facility] Last Admin: 07/11/18 09:41 Dose: Not Given Morphine Sulfate (Morphine Inj) 4 mg IV.PUSH Q4H PRN PRN Reason: BREAKTHROUGH PAIN Last Admin: 07/11/18 13:24 Dose: 4 mg Morphine Sulfate (Oramorph Sr) 15 mg PO Q12HR [facility] Last Admin: 07/11/18 09:38 Dose: 15 mg Oxycodone/Acetaminophen (Percocet 5/325 Mg) 1 tab PO Q4H PRN PRN Reason: Pain 3 to 6 Oxycodone/Acetaminophen (Percocet 10/325 Mg) 1 tab PO Q4H PRN PRN Reason: Pain 7 to 10 Last Admin: 07/11/18 11:26 Dose: 1 tab Patch Removal (Remove Old Patch) 1 each T-DERMAL HS [facility] Last Admin: 07/10/18 21:08 Dose: Not Given Potassium Chloride (Kcl) 10 meq PO DAILY [facility] Last Admin: 07/11/18 09:38 Dose: 10 meq Temazepam (Restoril) 7.5 mg PO HS PRN PRN Reason: INSOMNIA Last Admin: 07/10/18 21:15 Dose: 7.5 mg Warfarin Sodium (Coumadin) 7.5 mg PO DAILY@1600 [facility] Last Admin: 07/10/18 15:25 Dose: 7.5 mg Allergies Allergy/AdvReac Type Severity Reaction Status Date / Time No Known Allergies Allergy Unverified 06/28/18 11:27 Home Medications Medication Instructions Recorded Confirmed Type No Known Home Medications 06/28/18 06/28/18 History Exam Vital signs: Vital Signs 07/10/18 16:00 07/10/18 20:00 07/11/18 00:00 Temperature 98.2 F 98.0 F 97.7 F Pulse Rate 81 84 87 Respiratory Rate 16 18 17 Blood Pressure 118/67 124/79 132/81 Pulse Oximetry 95 95 95 07/11/18 04:00 07/11/18 07:43 07/11/18 08:00 Temperature 98.1 F 97.8 F Pulse Rate 85 79 83 Respiratory Rate 21 18 Blood Pressure 132/80 117/74 Pulse Oximetry 95 95 07/11/18 11:54 07/11/18 12:00 Temperature 97.7 F Pulse Rate 87 91 H Respiratory Rate 18 Blood Pressure 133/88 Pulse Oximetry 92 L Intake & Output 07/10/18 07/11/18 07/11/18 18:59 06:59 18:59 Intake Total 194 / 194 635 / 635 Output Total 800 / 800 Balance 194 / 194 -165 / -165 / 195 Weight 43.2 kg Intake: IV 194 / 194 155 / 155 195 / 195 Heparin/D5W 25,000 U/250 mL 25, 94 / 94 155 / 155 95 / 95 000 unit In 250 ml @ Per Protocol IV.CONT TITRATE PRN Rx #:[id number] Rocephin Inj 1,000 MG In NS Inj 100 / 100 100 / 100 100 ML @ 200 mls/hr IV.SIG Q24H [facility] Rx#:[id number] Oral 480 / 480 Output: Urine 800 / 800 Other: Date of Last Bowel Movement 07/10/18 07/10/18 Narrative: Physical Examination GENERAL: Patient is a thin, well-developed female, awake and alert, not in respiratory distress. SKIN: Cool and dry. No generalized rash, no ecchymoses and no evidence of embolic lesions. HEAD: Atraumatic. Normocephalic. No temporal wasting, or tenderness. EYES: [place] conjunctiva. No petechia or hemorrhage. Pupils equal, round and reactive to light. Extraocular movements full and intact. No scleral icterus. No injection or drainage. EARS, NOSE AND THROAT: Nose without bleeding or purulent nasal discharge. No sinus tenderness. Mucous membranes pink and moist. No oral lesions noted. No exudate. No oral thrush. NECK: Trachea midline. Supple and not tender, no meningeal signs CARDIOVASCULAR: Regular rate and rhythm. No murmurs, rubs or gallops heard RESPIRATORY: Clear to auscultation. Breath sounds equal bilaterally. No rales , wheezing or rhonchi ABDOMEN: Soft, non-tender, distended, bowel sounds present and normoactive. No guarding. No rebound. No organomegaly. EXTREMITIES: No clubbing, cyanosis, or edema. No joint effusion, has good ROM. No calf tenderness. Well perfused and warm. NEUROLOGICAL: Awake and alert. Cranial nerves grossly intact. Motor grossly within normal limits. PSYCHIATRIC: Normal affect, calm and cooperative. LINE: No evidence of infection Results - Labs CBC & Chem 7: 07/09/18 07:10 07/09/18 07:10 Labs: Laboratory Results - last 24 hr 07/11/18 03:25 PT 22.5 H INR 2.2 APTT 50.4 H D Assessment and Plan - Plan Impression Bilateral PE Back pain, has abnormality T12-L1, biopsy negative for malignancy, not much inflammatory cells, C/S negative - ?compression fracture, ?sterile discitis (+) bacteriuria, no symptoms Recommendation Stop Abx - adequate for UTI Pain control for back pain Monitor progress Will likely need followup imaging of her back - may need repeat biopsy of her back later on once she has been off Abx Thank you for this consultation
[2018-07-11 15:13] LABS: INR 2.3 Ratio; Prothrombin Time 22.9 sec (9.8-11.6)
--- NOTE | 2018-07-11 18:32 | P.PNIM ---
Subjective Interval history: Patient complaining of back pain she is tolerating a p.o. diet. She does not have any other complaints. Physical Exam Vital signs: Vital Signs 07/10/18 20:00 07/11/18 00:00 07/11/18 04:00 Temperature 98.0 F 97.7 F 98.1 F Pulse Rate 84 87 85 Respiratory Rate 18 17 21 Blood Pressure 124/79 132/81 132/80 Pulse Oximetry 95 95 95 07/11/18 07:43 07/11/18 08:00 07/11/18 11:54 Temperature 97.8 F Pulse Rate 79 83 87 Respiratory Rate 18 Blood Pressure 117/74 Pulse Oximetry 95 07/11/18 12:00 07/11/18 15:57 07/11/18 16:00 Temperature 97.7 F 98.0 F Pulse Rate 91 H 78 87 Respiratory Rate 18 18 Blood Pressure 133/88 111/77 Pulse Oximetry 92 L 94 L Intake & Output 07/10/18 07/11/18 07/11/18 18:59 06:59 18:59 Intake Total 194 / 194 635 / 635 915 / 915 Output Total 800 / 800 Balance 194 / 194 -165 / -165 915 / 915 Weight 43.2 kg Intake: IV 194 / 194 155 / 155 195 / 195 Heparin/D5W 25,000 U/250 mL 25, 94 / 94 155 / 155 95 / 95 000 unit In 250 ml @ Per Protocol IV.CONT TITRATE PRN Rx #:[id number] Rocephin Inj 1,000 MG In NS Inj 100 / 100 100 / 100 100 ML @ 200 mls/hr IV.SIG Q24H [facility] Rx#:[id number] Oral 480 / 480 720 / 720 Output: Urine 800 / 800 Other: # Voids 4 Date of Last Bowel Movement 07/10/18 07/10/18 Narrative: Patient complaining of back pain HEENT extraocular movements are intact, clear oropharyngeal mucosa, no JVD Cardiovascular S1-S2 audible, RRR, no murmurs rubs or gallops Respiratory clear to auscultation bilaterally Abdomen soft, nontender, nondistended, normal bowel sounds Patient complaining of lower back pain, no hematoma or significant swelling noted near the procedure site. Extremities no edema 2+ distal pulses in bilateral upper and lower extremities Neuro cranial nerves II through XII intact - Urinary Catheter Management Female External Cath placed during this visit: no Results - Labs CBC & Chem 7: 07/09/18 07:10 07/09/18 07:10 Laboratory Results - last 24 hr 07/11/18 07/11/18 03:25 14:22 PT 22.5 H 22.9 H INR 2.2 2.3 APTT 50.4 H D - Procedures NONE Assessment and Plan - Plan Ms. Fontenot is a 57-year-old female who presented to the emergency department with shortness of breath and chest pain and was found to have bilateral pulmonary embolisms and lower extremity DVTs. 1. Bilateral PE and lower extremity DVTs. Patient currently on a heparin drip will be stopped because the patient's INR is now therapeutic. Prothrombin mutation negative, factor V Leyden mutation negative. Positive antiphospholipid antibody. Continue Coumadin. Heme oncology is following the patient. 2. Discitis MRI resulted as questionable discitis and the possibility of malignancy. The patient underwent needle biopsy aspiration on 07/05/18. Cytology on the specimen is currently pending. This could possibly be due to a fracture or malignancy. Infectious disease will evaluate the patient for recommendations regarding antibiotic treatment and the concern for possible infectious discitis.
[2018-07-12] MEDS: Morphine Sulfate Inj 2 MG/ML Vial IM PRN ×2 (00:26→12:46)
[2018-07-12] MEDS: oxyCODONE/Acetaminophen 10/325 Tablet PO PRN ×5 (05:21→23:41)
[2018-07-12] MEDS: Morphine Sulfate 15 MG SR Tablet PO SCH (08:16)
[2018-07-12] MEDS: Potassium Chloride 10 MEQ ER Capsule PO SCH (08:16)
[2018-07-12] MEDS: Calcitonin Salmon Nasal 200 UNITS/Actuation - (3.7 ML) NASAL SCH (08:17)
[2018-07-12] MEDS: Lidocaine 5% Patch T-DERMAL SCH (08:17)
[2018-07-12] MEDS: Budesonide-Formoterol 80/4.5 MCG 6.9 GM Inhaler INH SCH ×2 (08:17→21:43)
--- NOTE | 2018-07-12 10:17 | P.PNID ---
Subjective Remarks: Patient is a 57-year-old female, with known history of tobacco abuse, presented initially to the emergency room in [place] complaining of chest pain and shortness of breath. She was found to have bilateral pulmonary embolism and pleural effusion on pulmonary CTA. She was transferred to the [facility] hospital for further evaluation and treatment. Hematology was consulted, and she had a workup for hypercoagulable state, as well as workup for possible malignancy. CT of the abdomen and pelvis did not show any abnormality. She has been complaining of back pain, and she underwent thoracic MRI which showed an abnormality at T12-L1. Patient apparently has been having back pain for several months. She has had several ED visits, first one was back in May and at that time she was told she had a urinary tract infection. She was given an antibiotic but it did not improve so she went back and at that time she was told she had some kind of a colitis. Patient underwent CT-guided biopsy aspiration of T12-L1, and cytology did not show any malignancy. It did not show any inflammatory cells on the cytology. Culture of the aspiration is negative. Her WBC has been normal. Her temperatures have been within normal limits. Patient's chest pain and shortness of breath has improved. Her main complaint is the spasm she gets in her lower back. She denies any urinary complaints as far as dysuria or any hematuria. Her blood cultures are negative. Urine culture showed mixed fabi compatible with contamination. Infectious disease consultation has been requested to evaluate the patient for possible discitis. Notes reviewed Temps ok C/O back pain Pain meds not controlling it yet No other complaints Off Abx Antibiotics: None Lines: PIV Past Medical History: History of ectopic Tobacco abuse Onset Date: ~1974 History of bilateral salpingectomy Allergies/Adverse Reactions: Allergies No Known Allergies Allergy (Unverified 06/28/18 11:27) Objective Vital Signs 07/11/18 11:54 07/11/18 12:00 07/11/18 15:57 Temperature 97.7 F Pulse Rate 87 91 H 78 Respiratory Rate 18 Blood Pressure 133/88 Pulse Oximetry 92 L 07/11/18 16:00 07/11/18 20:00 07/12/18 00:00 Temperature 98.0 F 98.0 F 97.8 F Pulse Rate 87 81 82 Respiratory Rate 18 19 18 Blood Pressure 111/77 121/80 125/75 Pulse Oximetry 94 L 94 L 96 07/12/18 04:00 07/12/18 08:00 Temperature 97.5 F L 97.7 F Pulse Rate 85 82 Respiratory Rate 18 18 Blood Pressure 125/83 116/75 Pulse Oximetry 93 L 95 Intake & Output 07/11/18 07/12/18 07/12/18 18:59 06:59 18:59 Intake Total 917.6 / 917.6 240 / 240 Output Total 800 / 800 Balance 917.6 / 917.6 -560 / -560 Weight 42.5 kg Intake: IV 197.6 / 197.6 Heparin/D5W 25,000 U/250 mL 25, 97.6 / 97.6 000 unit In 250 ml @ Per Protocol IV.CONT TITRATE PRN Rx #:[id number] Rocephin Inj 1,000 MG In NS Inj 100 / 100 100 ML @ 200 mls/hr IV.SIG Q24H [facility] Rx#:[id number] Oral 720 / 720 240 / 240 Output: Urine 800 / 800 Other: # Voids 4 Date of Last Bowel Movement 07/10/18 07/10/18 Imaging: ITS Impressions Venous Doppler Study 06/28/18 00:00 CONCLUSION: 1. Occlusive thrombus within the left proximal superficial femoral vein and right posterior tibial vein. Abdomen/Pelvis CT 06/30/18 00:00 CONCLUSION: 1. Right lower lobe airspace consolidation and 1.3 cm opacity involving the left lower lobe. There is a small to moderate-sized right-sided pleural effusion slightly increased from the prior exam. The left pleural effusion has resolved. Prior PE study demonstrated a large clot burden in these areas of airspace consolidation may reflect pulmonary infarct. 2. The solid organs demonstrate no evidence of infarct. There is a large stool burden present.. Chest CTA 06/30/18 00:00 CONCLUSION: 1. There is a large clot burden identified with multiple areas of pulmonary emboli. The size of these emboli appear stable to slightly decreased in size as compared to the prior exam. There is a worsening right-sided pleural effusion with stable interstitial thickening and airspace consolidation within the right lower lobe. 2. The left-sided pleural effusion has resolved and there is a persistent irregular 1.3 cm opacity identified within the peripheral aspect of the left lower lobe which may represent an area of pulmonary infarct. Bone Scan Nuclear Medicine 07/01/18 00:00 CONCLUSION: 1. Focal uptake T12. MRI is pending. 2. Neoplasm would be consideration. Enema w/Water Soluble 07/01/18 00:00 CONCLUSION: Unprepped Gastrografin enema for constipation reveals good emptying of stool from the colon. Thoracic Spine MRI 07/01/18 00:00 CONCLUSION: 1. Focal abnormality at the T12-L1 level with mild invagination of the superior endplate of L1 with surrounding edema and enhancement. The findings are of concern for discitis however a compression fracture could have a similar appearance. Needle Biopsy/Aspiration X-Ray 07/05/18 00:00 CONCLUSION: 1. Uncomplicated needle aspiration biopsy of the T12/L1 level as above. Physical Exam: GENERAL: awake and alert, not in respiratory distress. SKIN: Cool and dry. No generalized rash. HEAD: Atraumatic. Normocephalic. No temporal wasting, or tenderness. EYES: [place] conjunctiva. No petechia or hemorrhage. No scleral icterus. No injection or drainage. EARS, NOSE AND THROAT: Nose without bleeding or purulent nasal discharge. No sinus tenderness. Mucous membranes pink and moist. No oral lesions noted. NECK: Trachea midline. Supple and not tender, no meningeal signs CARDIOVASCULAR: Regular rate and rhythm. No murmurs, rubs or gallops heard RESPIRATORY: Clear to auscultation. Breath sounds equal bilaterally. No rales , wheezing or rhonchi ABDOMEN: Soft, non-tender, distended, bowel sounds present and normoactive. No guarding. No rebound. No organomegaly. EXTREMITIES: No clubbing, cyanosis, or edema. No joint effusion, has good ROM. No calf tenderness. Well perfused and warm. NEUROLOGICAL: Grossly non-focal. PSYCHIATRIC: Normal affect, calm and cooperative. LINE: No evidence of infection Assessment and Plan - Plan Impression Bilateral PE Back pain, has abnormality T12-L1, biopsy negative for malignancy, not much inflammatory cells, C/S negative - ?compression fracture, ?sterile discitis (+) bacteriuria, no symptoms Recommendation She is off Abx Pain control for back pain Monitor progress Will need followup imaging of her back after D/C, 3-4 weeks and reevaluate at that time need for any further work-up D/W Dr Goldsmith ([facility])
--- NOTE | 2018-07-12 13:08 | P.PNOP ---
Subjective Interval history: Patient still complains of back pain. No new symptoms. Physical Exam Vital signs: Vital Signs 07/11/18 15:57 07/11/18 16:00 07/11/18 20:00 Temperature 98.0 F 98.0 F Pulse Rate 78 87 81 Respiratory Rate 18 19 Blood Pressure 111/77 121/80 Pulse Oximetry 94 L 94 L 07/12/18 00:00 07/12/18 04:00 07/12/18 08:00 Temperature 97.8 F 97.5 F L 97.7 F Pulse Rate 82 85 82 Respiratory Rate 18 18 18 Blood Pressure 125/75 125/83 116/75 Pulse Oximetry 96 93 L 95 Intake & Output 07/11/18 07/12/18 07/12/18 18:59 06:59 18:59 Intake Total 917.6 / 917.6 240 / 240 Output Total 800 / 800 Balance 917.6 / 917.6 -560 / -560 Weight 42.5 kg Intake: IV 197.6 / 197.6 Heparin/D5W 25,000 U/250 mL 25, 97.6 / 97.6 000 unit In 250 ml @ Per Protocol IV.CONT TITRATE PRN Rx #:[id number] Rocephin Inj 1,000 MG In NS Inj 100 / 100 100 ML @ 200 mls/hr IV.SIG Q24H [facility] Rx#:[id number] Oral 720 / 720 240 / 240 Output: Urine 800 / 800 Other: # Voids 4 Date of Last Bowel Movement 07/10/18 07/10/18 07/10/18 - Urinary Catheter Management Female External Cath placed during this visit: no Results - Labs CBC & Chem 7: 07/09/18 07:10 07/09/18 07:10 Laboratory Results - last 24 hr 07/11/18 14:22 PT 22.9 H INR 2.3 - Procedures NONE Assessment and Plan - Assessment and Plan 57-year-old female with persistent low back pain with MRI and bone scan showing possible lytic lesion with significant enhancement, underwent IR biopsy T12-L1 with negative cultures and cytology. Given imaging findings with significant edema around the T12-L1 disc space, I am still concerned this could be a discitis and less likely compression fracture. Patient has been taken off antibiotics at this time with plan to monitor over the next several days. I do think it is reasonable to repeat imaging after patient has been off antibiotics for several days with new MRI likely early next week. Although cultures have been negative so far, certainly could be a false negative. Should there be persistent concern for possible discitis, patient may require repeat biopsy attempt. I would not necessarily recommend kyphoplasty at this time as discitis is still higher on my differential then fracture given imaging findings.
--- NOTE | 2018-07-12 17:19 | P.PNIM ---
Subjective Interval history: Patient complaining of mild back pain. She is tolerating a p.o. diet. There are no other complaints. Physical Exam Vital signs: Vital Signs 07/11/18 20:00 07/12/18 00:00 07/12/18 04:00 Temperature 98.0 F 97.8 F 97.5 F L Pulse Rate 81 82 85 Respiratory Rate 19 18 18 Blood Pressure 121/80 125/75 125/83 Pulse Oximetry 94 L 96 93 L 07/12/18 08:00 07/12/18 12:00 Temperature 97.7 F 97.8 F Pulse Rate 82 82 Respiratory Rate 18 18 Blood Pressure 116/75 113/79 Pulse Oximetry 95 97 Intake & Output 07/11/18 07/12/18 07/12/18 18:59 06:59 18:59 Intake Total 917.6 / 917.6 240 / 240 Output Total 800 / 800 Balance 917.6 / 917.6 -560 / -560 Weight 42.5 kg Intake: IV 197.6 / 197.6 Heparin/D5W 25,000 U/250 mL 25, 97.6 / 97.6 000 unit In 250 ml @ Per Protocol IV.CONT TITRATE PRN Rx #:[id number] Rocephin Inj 1,000 MG In NS Inj 100 / 100 100 ML @ 200 mls/hr IV.SIG Q24H [facility] Rx#:[id number] Oral 720 / 720 240 / 240 Output: Urine 800 / 800 Other: # Voids 4 Date of Last Bowel Movement 07/10/18 07/10/18 07/10/18 Narrative: Patient complaining of back pain, improving HEENT extraocular movements are intact, clear oropharyngeal mucosa, no JVD Cardiovascular S1-S2 audible, RRR, no murmurs rubs or gallops Respiratory clear to auscultation bilaterally Abdomen soft, nontender, nondistended, normal bowel sounds Patient complaining of lower back pain, no hematoma or significant swelling noted near the procedure site. Extremities no edema 2+ distal pulses in bilateral upper and lower extremities Neuro cranial nerves II through XII intact - Urinary Catheter Management Female External Cath placed during this visit: no Results - Labs CBC & Chem 7: 07/09/18 07:10 07/09/18 07:10 Microbiology 07/05/18 13:51 Abscess - Other Fungal Smear - Final No fungal elements seen 07/05/18 13:51 Abscess - Other Fungal Culture - Preliminary No growth in 1 week 07/05/18 13:51 Abscess - Other Acid Fast Bacilli Smear - Final No acid fast bacilli seen 07/05/18 13:51 Abscess - Other Mycobacterial Culture - Preliminary No growth in 1 week - Procedures NONE Assessment and Plan - Plan Ms. Fontenot is a 57-year-old female who presented to the emergency department with shortness of breath and chest pain and was found to have bilateral pulmonary embolisms and lower extremity DVTs. 1. Bilateral PE and lower extremity DVTs. Patient's INR is now therapeutic. She will be continued on warfarin 5 mg p.o. daily. I will follow-up with an INR tomorrow. She will likely be discharged tomorrow. She is to follow-up with a primary care physician on Sunday and an INR should be drawn on Sunday in order to titrate the Coumadin to a goal INR of 2-3. Currently the patient is at goal. 2. Discitis MRI resulted as questionable discitis and the possibility of malignancy. Biopsy results are negative for malignancy. The patient is now off of IV antibiotics as per infectious disease recommendations. ID also recommends repeating imaging of the spine in 1 month after discharge to evaluate lesion at the patient had on the spine T12-L1. We have started to taper the patient off of pain medications. She will be evaluated tomorrow and likely be discharged home. DVT prophylaxis, patient is on Coumadin.
[2018-07-13] MEDS: oxyCODONE/Acetaminophen 10/325 Tablet PO PRN ×2 (03:45→08:40)
[2018-07-13 05:28] LABS: INR 2.5 Ratio; Prothrombin Time 25.2 sec (9.8-11.6)
[2018-07-13] MEDS: Potassium Chloride 10 MEQ ER Capsule PO SCH (08:40)
[2018-07-13] MEDS: Calcitonin Salmon Nasal 200 UNITS/Actuation - (3.7 ML) NASAL SCH (08:41)
[2018-07-13] MEDS: Budesonide-Formoterol 80/4.5 MCG 6.9 GM Inhaler INH SCH (08:41)
[2018-07-13] MEDS: Lidocaine 5% Patch T-DERMAL SCH (08:41)
[2018-07-13] MEDS ORDERED: oxyCODONE/Acetaminophen 10/325 Tablet PO PRN (09:01)
--- NOTE | 2018-07-13 10:04 | P.DS ---
Date of admission: 06/28/18 20:31 Primary care physician: No Primary Care Physician Brief History from admission: Ms. Fontenot is a 57 year-old with a history of tobacco abuse since the age of 15 who presented to the emergency room in [place] complaining of chest pain and shortness of breath. She was found to have bilateral pulmonary embolism, emphysematous changes and apical lung [place], and bilateral pleural effusions on pulmonary CTA and was transferred to the [facility] for hospitalist admission for medical management. The patient is seen in the surgical intensive care unit. She is complaining of severe stabbing pain in her chest and her back that has been relieved somewhat by pain medications. The pain is worsened with deep breathing and positional changes. The patient complains of a 10 pound weight loss over the past few weeks. The patient was previously seen at [facility] in [place] and was treated for pyelonephritis on her first ER visit followed by being treated for colitis. She states she was having pain in her back and abdomen that did not get better despite treatment with antibiotics resulting in her presentation to the [place] emergency room on 06/28/2018. She denies any recent long periods of travel, denies illicit drug abuse, denies any history of blood clots or bleeding disorders, denies any history of cancer, and denies taking any estrogen. She reports leading a relatively sedentary lifestyle and smokes about a pack a day since the age of 15. She denies any family history of blood clots or bleeding disorders. DS: Diagnosis - Discharge Diagnosis (1) Bilateral pulmonary embolism Status: Acute (2) Tobacco abuse Status: Acute (3) DVT (deep venous thrombosis) Status: Acute (4) Back pain Status: Acute DS: Medications - Discharge Medications Prescriptions: albuterol sulfate [Ventolin HFA] 2 puff INH Q4H PRN #1 g PRN Reason: Shortness Of Breath budesonide-formoterol [Symbicort] 2 puff INH BID #1 g oxycodone-acetaminophen 1 tab PO Q6H PRN #8 tab PRN Reason: Pain warfarin [Coumadin] 5 mg PO DAILY@1600 #5 tab DS: Summary Hospital Course: Ms. Fontenot is a 57-year-old female who presented to the emergency department with shortness of breath and chest pain and was found to have bilateral pulmonary embolisms and lower extremity DVTs. 1. Bilateral PE and lower extremity DVTs. The patient presented to our emergency department with complaints of chest pain as well as lower back pain. CT of the chest was done which showed bilateral pulmonary embolism. She was started on heparin drip as well as Coumadin in the bridging process was initiated. Heme oncology was consulted to evaluate the patient. Coagulation workup was done which came back positive for antiphospholipid antibody. Her INR was monitored closely and is now 2.5 with a goal INR between 2 and 3. Patient's INR is now therapeutic. She will be continued on warfarin 5 mg p.o. daily. She was advised to follow-up with a primary care physician in [place] on Sunday. Her Coumadin dose will need to be adjusted as needed. She is currently on room air without any complaints of shortness of breath. She denies having any current chest pain. The risks and benefits of being on anticoagulation were discussed in detail with the patient. She understands these risks and agrees to this continue anticoagulant. 2. Lower back pain. MRI resulted as questionable discitis and the possibility of malignancy. Initially she was started on IV antibiotics as there was a concern concern for an infectious process. Clinically patient did not appear to have an infection. She is afebrile with a normal WBC count. Biopsy results of the T12-L1 are negative for malignancy. The patient is now off of IV antibiotics as per infectious disease recommendations. ID also recommends repeating imaging of the spine in 1 month after discharge to evaluate lesion at the patient had on the spine T12-L1. She was tapered off of IV pain medications and will be given a 2-3 day supply of Percocet. She should follow-up with her primary care physician next week and we recommend repeating imaging of the spine in 1 month. 3. COPD. The patient has a extensive history of tobacco smoking. The patient is currently on room air without any complaints of shortness of breath. She will be continued on albuterol, Symbicort. The patient was advised to stop smoking. The risks associated with tobacco smoking were discussed with the patient. - Time Spent with Patient Total time spent providing and/or coordinating discharge services: Greater than 30 minutes - Quality: VTE Deep Vein Thrombosis/Pulmonary Embolism Present on Admission: Yes Exam Vital signs: Vital Signs 07/12/18 12:00 07/12/18 16:00 07/12/18 16:10 Temperature 97.8 F 98.1 F Pulse Rate 82 96 H 90 Respiratory Rate 18 17 Blood Pressure 113/79 119/68 Pulse Oximetry 97 96 07/12/18 20:00 07/13/18 00:00 07/13/18 04:00 Temperature 97.4 F L 97.4 F L 97.4 F L Pulse Rate 92 H 89 89 Respiratory Rate 18 18 18 Blood Pressure 134/90 132/92 H 134/87 Pulse Oximetry 95 95 94 L Intake & Output 07/12/18 07/13/18 07/13/18 18:59 06:59 18:59 Intake Total 480 / 480 1200 / 1200 Output Total 1800 / 1800 Balance 480 / 480 -600 / -600 Weight 42.5 kg Intake: Oral 480 / 480 1200 / 1200 Oral Supplement 0 / 0 Output: Urine 800 / 800 Urine Amount (Catheter) 1000 / 1000 Female External 1000 / 1000 Other: # Voids 3 4 Date of Last Bowel Movement 07/10/18 07/10/18 # Bowel Movements 0 0 Narrative: General patient in no acute distress HEENT extraocular movements are intact, clear oropharyngeal mucosa, no JVD Cardiovascular S1-S2 audible, RRR, no murmurs rubs or gallops Respiratory clear to auscultation bilaterally Abdomen soft, nontender, nondistended, normal bowel sounds Patient complaining of mild lower back pain. She does not have any other complaints. Extremities no edema 2+ distal pulses in bilateral upper and lower extremities Neuro cranial nerves II through XII intact Results Procedures completed during hospitalization: NONE Labs on day of discharge: Labs from last 24 hours 07/13/18 03:59 PT 25.2 H INR 2.5 Preliminary micro results at discharge 07/05/18 13:51 Fungal Culture - Preliminary Abscess - Other No growth in 1 week 07/05/18 13:51 Mycobacterial Culture - Preliminary Abscess - Other No growth in 1 week - Impressions ITS Impressions Venous Doppler Study 06/28/18 00:00 CONCLUSION: 1. Occlusive thrombus within the left proximal superficial femoral vein and right posterior tibial vein. Abdomen/Pelvis CT 06/30/18 00:00 CONCLUSION: 1. Right lower lobe airspace consolidation and 1.3 cm opacity involving the left lower lobe. There is a small to moderate-sized right-sided pleural effusion slightly increased from the prior exam. The left pleural effusion has resolved. Prior PE study demonstrated a large clot burden in these areas of airspace consolidation may reflect pulmonary infarct. 2. The solid organs demonstrate no evidence of infarct. There is a large stool burden present.. Chest CTA 06/30/18 00:00 CONCLUSION: 1. There is a large clot burden identified with multiple areas of pulmonary emboli. The size of these emboli appear stable to slightly decreased in size as compared to the prior exam. There is a worsening right-sided pleural effusion with stable interstitial thickening and airspace consolidation within the right lower lobe. 2. The left-sided pleural effusion has resolved and there is a persistent irregular 1.3 cm opacity identified within the peripheral aspect of the left lower lobe which may represent an area of pulmonary infarct. Bone Scan Nuclear Medicine 07/01/18 00:00 CONCLUSION: 1. Focal uptake T12. MRI is pending. 2. Neoplasm would be consideration. Enema w/Water Soluble 07/01/18 00:00 CONCLUSION: Unprepped Gastrografin enema for constipation reveals good emptying of stool from the colon. Thoracic Spine MRI 07/01/18 00:00 CONCLUSION: 1. Focal abnormality at the T12-L1 level with mild invagination of the superior endplate of L1 with surrounding edema and enhancement. The findings are of concern for discitis however a compression fracture could have a similar appearance. Needle Biopsy/Aspiration X-Ray 07/05/18 00:00 CONCLUSION: 1. Uncomplicated needle aspiration biopsy of the T12/L1 level as above. Discharge Plan - Discharge Disposition Patient Disposition: 01 Discharge Home - Discharge Condition Condition: Serious - Discharge Order Discharge Orders: Discharge Order (Routine); Ordered 07/13/18 Ordered By: Tootie Goldsmith - Physicians Team Primary Care Provider: Primary Care Stacia Parks Attending Provider: Tootie Goldsmith Other Providers: Roosevelt Zepeda MD ; Ana Loyola MD ; Esther Devine MD - Post Discharge Care Plan Care Plan Goals: Your Health Problems: Goals to Promote Your Health: * To prevent worsening of your condition * To maintain your health at the optimal level Directions to Meet Your Goals: * Take your medications as prescribed * Follow your dietary instruction * Follow activity as directed * Keep your appointments as scheduled * Take your immunizations and boosters as scheduled * If your symptoms worsen call your PCP * If no PCP go to Urgent Care or Emergency Room Smoking is dangerous to your health. Avoid second hand smoke. You may reach the 24-hour crisis hotline for domestic abuse at .
[2018-07-13 10:25] VITALS: BP 132/76; PULSE 85; RESP 20; TEMP 98; O2SAT 96
== END 2018-07-13 12:45 | disposition home or self-care (01) ==
LOC: NEDDLT 11:14 → N03 20:31 → N04 06-30 22:09
PROVIDERS: ADMIT Hospitalist; ATTEND Hospitalist